=== PATIENT | female | born 1955 | race Caucasian/White ===

== ENCOUNTER 2017-11-27 12:03 | Inpatient (IN) | payer MEDICARE, BC ==
[2017-11-27 13:16] LABS: #Eosinphils 0.1 thou/uL (0.0-0.7); #Lymphocytes 0.5 thou/uL (1.20-3.40); #Monocytes 0.5 thou/uL (0.11-0.59); #Neutrophils 10.1 thou/uL (1.40-6.50); %Basophils 0.1 % (0.0-1.0); %Eosinophils 1.2 % (0.0-10.0); %Lymphocytes 4.8 % (21.0-51.0); %Monocytes 4.6 % (0.0-10.0); %Neutrophils 89.3 % (42.0-75.0); Hemoglobin 11.4 g/dL (12.0-16.0); Mean Corpuscular HGB CONC 32.8 g/dL (32.0-36.0); Mean Corpuscular Hemoglobin 29.2 pg (27.0-31.0); Mean Platelet Volume 8.2 fL (7.4-10.4); Platelet Count 345 thou/uL (130-400); RBC Distribution Width 15.7 % (11.5-14.5); Red Blood Cell (RBC) Count 3.91 mill/uL (4.20-5.40); White Blood Cell (WBC) Count 11.4 thou/uL (4.8-10.8)
[2017-11-27 13:49] LABS: ALT (SGPT) 36 U/L (8-55); AST (SGOT) 42 U/L (5-34); Albumin 4.1 g/dL (3.4-4.8); Alkaline Phosphatase 177 U/L (40-150); Anion Gap 20 mmol/L (10-20); BUN (Urea Nitrogen) 36 mg/dL (9.8-20.1); Bilirubin, Total 0.4 mg/dL (0.2-1.2); Calc. Creatinine Clearance 0 mL/min (70-130); Calcium 10.1 mg/dL (7.8-10.44); Carbon Dioxide 23 mmol/L (23-31); Chloride 97 mmol/L (98-107); Estimated GFR-MDRD 36; Globulin 3.2 g/dL (2.4-3.5); Glucose 455 mg/dL (80-115); Potassium 4.7 mmol/L (3.5-5.1); Protein, Total 7.3 g/dL (6.0-8.3); Sodium 135 mmol/L (136-145)
[2017-11-27 13:58] LABS: Bilirubin Negative (Negative); Blood, Urine Negative (Negative); Clarity CLEAR (Clear); Glucose, Urine (Dipstick) >=1000 mg/dL (Negative); Leukocyte Small (Negative); Nitrite Positive (Negative); Protein, Urine (Dipstick) Negative (Neg-Trace); Specific Gravity, Urine 1.021 (1.002-1.036); Urobilinogen 0.2 mg/dL (0.2-1.0); pH, Urine 5.5 (5.0-9.0)
[2017-11-27 14:01] LABS: Bacteria/HPF 4+ HPF (None Seen); Hyaline Casts/LPF 0-3 HYALINE CAST LPF (0-3 Hyaline); RBC/HPF 0-3 HPF (0-3); Squamous Epithelial None Seen HPF (0-3)
[2017-11-27 14:14] LABS: Magnesium 1.8 mg/dL (1.6-2.6)
[2017-11-27 14:19] LABS: CKMB 2.5 ng/mL (0-6.6); Troponin I Less than 0.010 ng/mL (< 0.028)
--- NOTE | 2017-11-27 15:10 | RAD ---
PORTABLE AP CHEST RADIOGRAPH: Date: 11-27-17 History: Shortness of breath, fever. Comparison: 11-30-16 FINDINGS: The most inferior aspect of each lateral costophrenic angle is excluded from view. Dorsal column stim ulator is again noted overlying the left chest with leads extending superiorly overlying the left nec k. Lungs are otherwise clear. Cardiac silhouette and pulmonary vasculature are within normal limits. There has been no interval change from prior exam. IMPRESSION: 1. Exclusion of the most inferior aspect of the lateral costophrenic angles, but no definite acute ca rdiopulmonary process is appreciated. POS: [facility]
[2017-11-27] MEDS ORDERED: Insulin Regular 300 UNITS/3 ML VIAL ONE (15:53)
--- NOTE | 2017-11-27 16:19 | PDOC.FPRHP ---
- History of Present Illness Chief Complaint: Weakness History of Present Illness: 62 yo WF PMH COPD and DM2. Presents with a 4 day history of generalized weakness , fever, SOB and fatigue. Fever up to 103F at home. Reports suprapubic pain. No recent travel or sick contacts. Denies cough or increased sputum productions. Denies need for intubation for COPD exacerbation in the past. UTD immunizations. ED Course: Labs, CXR, EKG, insulin, rocephin - Allergies/Adverse Reactions Allergies Allergy/AdvReac Type Severity Reaction Status Date / Time No Known Allergies Allergy Verified 10/23/15 22:33 - Home Medications Medication Instructions Recorded Confirmed Type Albuterol Sulfate [Ventolin HFA] 2 puff INH Q4HR PRN 09/02/14 10/23/15 History Amitriptyline HCl [Elavil] 50 mg PO DAILY 09/02/14 10/23/15 History Amlodipine [Norvasc] 10 mg PO DAILY 09/02/14 10/23/15 History Atorvastatin Calcium [Lipitor] 80 mg PO DAILY 09/02/14 10/23/15 History Cholecalciferol (Vitamin D3) 3,000 units PO DAILY 09/02/14 10/23/15 History [Vitamin D] Gabapentin [Neurontin] 1 capsule PO QID 09/02/14 10/23/15 History Hydroxychloroquine Sulfate 1 tablet PO BID 09/02/14 10/23/15 History [Plaquenil] Ipratropium-Albuterol [Combivent] 2 puff INH TID 09/02/14 10/23/15 History Leflunomide [Arava] 20 mg PO DAILY 09/02/14 10/23/15 History Losartan Potassium 100 mg PO DAILY 09/02/14 10/23/15 History Mirtazapine [Remeron] 15 mg PO DAILY 09/02/14 10/23/15 History Montelukast Sodium [Singulair] 10 mg PO DAILY 09/02/14 10/23/15 History Multivitamin [Multi-Vitamin Daily] 1 tablet PO DAILY 09/02/14 10/23/15 History Tiotropium [Spiriva Handihaler] 18 mcg INH DAILY 09/02/14 10/23/15 History Ubidecarenone [Co Q-10] 1 tablet PO DAILY 09/02/14 10/23/15 History Venlafaxine HCl [Effexor] 75 mg PO DAILY 09/02/14 10/23/15 History cloNIDine [Catapres] 0.3 mg PO TID 09/02/14 10/23/15 History metFORMIN HCl 1,000 mg PO BID-WM 09/02/14 10/23/15 History sulfaSALAzine 1,500 mg PO BID 09/02/14 10/23/15 History hydrALAZINE HCl 25 mg PO TID #0 09/04/14 10/23/15 Rx Budesonide-Formoterol [Symbicort 1 puff INH BID 10/23/15 10/23/15 History 160-4.5] Ferrous Sulfate [Iron] 325 mg PO TID 10/23/15 10/23/15 History Hydrochlorothiazide 25 mg PO DAILY 10/23/15 10/23/15 History Topiramate 100 mg PO BID 10/23/15 10/23/15 History hydrALAZINE HCl 25 mg PO TID 10/23/15 10/23/15 History sitaGLIPtin Phosphate [Januvia] 100 mg PO DAILY 10/23/15 10/23/15 History Levofloxacin [Levaquin] 500 mg PO 0600 #4 tab 10/26/15 Rx predniSONE 40 mg PO QAM- #4 tab 10/26/15 Rx - History PMHx: PSHx: FHx: Social: - Vital signs BP: [] HR: [] RR: [] Tmax: [] Pox: []% on [] Wt: [] FMR H&P: Results - Labs Result Diagrams: 11/27/17 12:55 11/27/17 12:55 Lab results: WBC 11.4 thou/uL (4.8-10.8) H 11/27/17 12:55 Hgb 11.4 g/dL (12.0-16.0) L 11/27/17 12:55 Hct 34.7 % (36.0-47.0) L 11/27/17 12:55 MCV 89.0 fl (81.0-99.0) 11/27/17 12:55 Plt Count 345 thou/uL (130-400) 11/27/17 12:55 Neutrophils % 89.3 % (42.0-75.0) H 11/27/17 12:55 Sodium 135 mmol/L (136-145) L 11/27/17 12:55 Potassium 4.7 mmol/L (3.5-5.1) 11/27/17 12:55 Chloride 97 mmol/L (98-107) L 11/27/17 12:55 Carbon Dioxide 23 mmol/L (23-31) 11/27/17 12:55 BUN 36 mg/dL (9.8-20.1) H 11/27/17 12:55 Creatinine 1.48 mg/dL (0.6-1.1) H 11/27/17 12:55 Glucose 455 mg/dL (80-115) H 11/27/17 12:55 Lactic Acid 2.2 mmol/L (0.5-2.2) 11/27/17 12:55 Calcium 10.1 mg/dL (7.8-10.44) 11/27/17 12:55 Total Bilirubin 0.4 mg/dL (0.2-1.2) 11/27/17 12:55 AST 42 U/L (5-34) H 11/27/17 12:55 ALT 36 U/L (8-55) 11/27/17 12:55 Alkaline Phosphatase 177 U/L (40-150) H 11/27/17 12:55 CK-MB (CK-2) 2.5 ng/mL (0-6.6) 11/27/17 12:55 Serum Total Protein 7.3 g/dL (6.0-8.3) 11/27/17 12:55 Albumin 4.1 g/dL (3.4-4.8) 11/27/17 12:55 Lipase 15 U/L (8-78) 11/27/17 12:55 Urine Ketones Negative mg/dL (Negative) 11/27/17 13:37 Urine Blood Negative (Negative) 11/27/17 13:37 Urine Nitrite Positive (Negative) H 11/27/17 13:37 Ur Leukocyte Esterase Small (Negative) H 11/27/17 13:37 Urine RBC 0-3 HPF (0-3) 11/27/17 13:37 Urine WBC 11-20 HPF (0-3) H 11/27/17 13:37 Ur Squamous Epith Cells None Seen HPF (0-3) 11/27/17 13:37 Urine Bacteria 4+ HPF (None Seen) H 11/27/17 13:37 FMR H&P: Upper Level - Plan Date/Time: 11/27/17 2237 I, [], have evaluated this patient and agree with findings/plan as outlined by sales and marketing intern resident. Pertinent changes/additions are listed here.
[2017-11-27 17:25] LABS: Lactic Acid 2.3 mmol/L (0.5-2.2)
--- NOTE | 2017-11-27 17:57 | HP-2 ---
CODE STATUS: FULL. Code status was discussed with patient who expressed understanding of full code procedures. PRIMARY CARE PHYSICIAN: Deanne Dye M.D. RESIDENT: Jose Carlos Montes M.D. ATTENDING PHYSICIAN: Deanne Dye M.D. HISTORIAN: Patient, family CHIEF COMPLAINT: Weakness. HISTORY OF PRESENT ILLNESS: Ms. Mcguire is a pleasant 62-year-old woman presented to the ER with a chief complaint of generalized weakness that began approximately 5 days prior to admission. She also endorsed shortness of breath, fever up to 103.0 Fahrenheit at home, and abdominal pain. She denied cough or increase in sputum production. She denies recent travel or sick exposures. Patient states she has a remote smoking history, but quit over 15 years ago. She states she has been compliant with her medications. States has been over a year since her last COPD exacerbation. States she has never required intubation and mechanical ventilation for her COPD exacerbation. EMERGENCY ROOM COURSE: While in the ER, the patient was seen and evaluated by Dr. Quinn Torres. The patient received routine laboratory work, chest x-ray , and EKG. Urine was found to be suspicious for urinary tract infection and she was given 1 gram of Rocephin. She also had a temperature of 100.6 while in the ER. Additionally, her blood glucose found to be elevated. She received Humulin 6 units IV push and a 500 mL normal saline bolus. PAST MEDICAL HISTORY: 1. COPD. 2. Diabetes mellitus type 2. 3. Hypertension. 4. Resting tremors. 5. Depression. 6. Anxiety. 7. Rheumatoid arthritis. 8. Dyslipidemia. PAST SURGICAL HISTORY: 1. Appendectomy in 1969. 2. Cholecystectomy in 1984. 3. Knuckle replacement in 2006. 4. Deep Brain Stimulator for essential tremor ALLERGIES: No known drug allergies. MEDICATIONS: 1. Lipitor 80 mg daily. 2. Remeron 15 mg daily. 3. Effexor 75 mg daily. 4. Amlodipine 10 mg daily. 5. Clonidine 0.3 mg three times daily. 6. Losartan 100 mg daily. 7. Hydrochlorothiazide 25 mg daily. 8. Hydralazine 50 mg daily. 9. Lasix 40 mg daily. 10. Potassium chloride 20 mEq daily. 11. Plaquenil 200 mg twice daily. 12. Vitamin D 3000 units daily. 13. Prednisone 1 mg daily. 14. CoQ10 100 mg daily. 15. Orencia 750 mg infusion every 4 weeks. 16. Spiriva 1 capsule inhaled daily. 17. Singulair 10 mg daily. 18. Symbicort 1 puff daily. 19. ProAir 2 puffs q.4 h. p.r.n. 20. Brovana 15 mcg per 2 mL twice daily as needed. 21. Metformin 1000 mg twice daily. The patient states she has recently taken off of this medication due to diarrhea. 22. Glyburide 2.5 mg daily. 23. Trulicity 0.75 mg subcu weekly. 24. Gabapentin 600 mg q.i.d. 25. Baclofen 10 mg twice daily. 26. Tramadol 50 mg as needed for pain. 27. Amitriptyline 50 mg daily. 28. Multivitamin. 29. Ferrous sulfate 325 mg t.i.d. FAMILY HISTORY: She has positive lung cancer in father. SOCIAL HISTORY: The patient reports that she smoked 1 pack of cigarettes a day for approximately 35 years, but quit almost 14 years ago. Denies alcohol. Currently, lives with her at home. REVIEW OF SYSTEMS: General: Endorses fevers and chills. ENT: Denies ear pain and sore throat. Neck: Denies masses or lesions. Lungs: Reports shortness of breath. Denies cough or congestion. Cardiovascular: Denies chest pain or palpitations. Gastrointestinal: Reports lower abdominal pain. Denies nausea, vomiting. Musculoskeletal: Reports chronic back pain. Denies numbness or weakness. Neurologic: Denies headaches or focal weakness. Reports generalized weakness. Skin: Denies rashes or lesions. PHYSICAL EXAMINATION: VITAL SIGNS: Blood pressure 153/56, pulse 113, respiratory rate 25, temperature 98.5, maximum temperature in the ER was 100.6 orally. Current weight 93 kilograms. Pulse ox 95% on room air. GENERAL: Mild respiratory distress. He is alert and oriented x4. ENT: External ears and nose grossly normal. Moist mucous membranes. NECK: Supple, without lymphadenopathy or thyromegaly. HEART: Tachycardic rate, regular rhythm, no murmurs or gallops appreciated. PULMONARY: Clear to auscultation bilaterally, but markedly decreased breath sounds. ABDOMEN: Suprapubic tenderness to palpation. No guarding or rigidity noticed. Bowel sounds present. EXTREMITIES: No pitting edema noticed or asymmetry noted in lower extremities. MUSCULOSKELETAL: Moves all four limbs equally. NEUROLOGIC: No gross focal deficits. Sensation is grossly normal. SKIN: No obvious rashes or lesions noted. PSYCHIATRIC: Mood and affect are appropriate. LABORATORY DATA: CBC: White blood cell count 11.4, hemoglobin 11.4, hematocrit 34.7, MCV 89, neutrophils 89.3%. CMP: Sodium 135, potassium 4.7, chloride 97, bicarbonate 23, BUN 36, creatinine 1.48, glucose 455. Estimated GFR 36, calcium 10.1, bilirubin 0.4, total protein 10.3, albumin 4.1, globulin 3.2, alkaline phosphatase 177, AST 42 , ALT 36, magnesium 1.8. Other labs, lipase 15. Troponin less than 0.010, CK- MB 2.5. Urinalysis: Specific gravity 1.02, pH 5.5, leukocyte esterase is small, nitrite positive, protein negative, glucose greater than 1000, ketones negative , bilirubin negative, blood negative, red blood cells 0-3 per high power field, white blood cell 10-20 per high power field, 4+ bacteria, squamous epithelial none. Chest x-ray, no acute processes. EKG, sinus tachycardia with a rate of 115 and occasional premature atrial complexes, NE interval 134, QTc interval 439. ASSESSMENT AND PLAN: Ms. Mcguire is a 62-year-old white female with past medical history of chronic obstructive pulmonary disease who presents with a 5- day history of generalized weakness, fever, suprapubic abdominal pain, and shortness of breath. Labs are concerning for urinary tract infection. Physical exam more consistent with chronic obstructive pulmonary disease exacerbation. Plan: 1. Sepsis secondary to urinary tract infection. The patient received 1 gram of Rocephin in the ER. We will switch to Levaquin as there is concern for possible chronic obstructive pulmonary disease exacerbation and would have equally efficacious coverage. Urine culture pending at this time. Lactic acid within normal limits. Blood cultures ordered. Received 1 L bolus in ER and will start on maintenance fluids at 100 mL/hr. 2. Acute Kidney Injury: IV fluids, Repeat BMP in the morning. 3. Acute COPD exacerbation. I will start on prednisone 40 mg daily and continue this for 5 days. Levaquin for antibiotics. We will schedule q.4 hour DuoNebs as q.2 h. p.r.n. 4. Hypertension. Continue home medications. 5. Hyperglycemia, sliding scale insulin provided. No concern for diabetic ketoacidosis or HHNK at this time. 6. Diabetes mellitus type 2. Continue home medications. Sliding scale insulin provided with a.c. and at bedtime Accu-Cheks. Hypoglycemics ordered. 7. Back pain, home medications. 8. Diet: Heart healthy, consistent carbohydrate. 9. Activity: As tolerated. 10. Prophylaxis: Lovenox for DVT prophylaxis. 11. CODE STATUS: FULL. DISPOSITION AND ESTIMATED LENGTH OF STAY: She is admitted under inpatient status placed on the floor. Length of stay, likely greater than 2 midnights. History, physical exam and management of this patient were discussed with Dr. Dye who was in agreement unless otherwise stated in her note. DRAKE
[2017-11-27] MEDS ORDERED: HumaLOG 300 UNITS/3 ML VIAL SC PRN (18:23)
[2017-11-27] MEDS ORDERED: Bisacodyl 10 MG SUPP PR PRN (18:23)
[2017-11-27] MEDS ORDERED: Dextrose 50% Abboject 50 ML SYRINGE SLOW IVP PRN (18:23)
[2017-11-27] MEDS ORDERED: Acetaminophen 650 MG Suppository PR PRN (18:23)
[2017-11-27] MEDS ORDERED: Ondansetron ODT 4 MG TAB PO PRN (18:23)
[2017-11-27] MEDS ORDERED: Dextrose 5% in Water 1,000 ML IV PRN (18:23)
[2017-11-27] MEDS ORDERED: Bisacodyl 5 MG TAB PO PRN (18:23)
[2017-11-27] MEDS ORDERED: Ondansetron HCl/PF 4 MG/2 ML Vial IVP PRN (18:23)
[2017-11-27] MEDS ORDERED: Enoxaparin Sodium 30 MG/0.3 ML SYRINGE SC SCH (18:30)
[2017-11-27] MEDS ORDERED: predniSONE 20 MG TAB PO SCH (18:30)
[2017-11-27] MEDS ORDERED: traMADol HCl 50 MG TAB PO PRN (18:50)
[2017-11-27] MEDS: Acetaminophen 325 MG TAB PO PRN (19:23)
[2017-11-27] MEDS: Sodium Chloride 0.9% 1,000 ML IV SCH (19:23)
[2017-11-27] MEDS ORDERED: Montelukast Sodium 10 mg Tablet PO SCH ×2 (21:00)
[2017-11-27] MEDS: hydrALAZINE 25 MG TAB PO SCH (21:57)
[2017-11-27] MEDS: Hydroxychloroquine Sulfate 200 MG TAB PO SCH (21:59)
[2017-11-27] MEDS: cloNIDine 0.3 MG TAB PO SCH ×2 (21:59)
[2017-11-27] MEDS: Gabapentin 300 MG CAP PO SCH (21:59)
[2017-11-27 22:47] VITALS: BMI 38.0
[2017-11-28] MEDS ORDERED: Labetalol HCl 100 MG/20 ML VIAL SLOW IVP SCH (02:15)
[2017-11-28] MEDS: Acetaminophen 325 MG TAB PO PRN (03:47)
[2017-11-28] MEDS: HumaLOG 300 UNITS/3 ML VIAL SC PRN ×3 (03:48→16:57)
[2017-11-28] MEDS: Sodium Chloride 0.9% 1,000 ML IV SCH ×2 (04:38→12:40)
[2017-11-28 05:00] LABS: #Lymphocytes 0.7 thou/uL (1.20-3.40); #Monocytes 0.2 thou/uL (0.11-0.59); #Neutrophils 9.9 thou/uL (1.40-6.50); %Eosinophils 0.3 % (0.0-10.0); %Lymphocytes 6.2 % (21.0-51.0); %Monocytes 1.7 % (0.0-10.0); %Neutrophils 91.8 % (42.0-75.0); Hemoglobin 9.8 g/dL (12.0-16.0); Mean Corpuscular HGB CONC 33.8 g/dL (32.0-36.0); Mean Corpuscular Hemoglobin 29.2 pg (27.0-31.0); Mean Corpuscular Volume 86.6 fl (81.0-99.0); Mean Platelet Volume 7.8 fL (7.4-10.4); Platelet Count 309 thou/uL (130-400); RBC Distribution Width 15.6 % (11.5-14.5); Red Blood Cell (RBC) Count 3.36 mill/uL (4.20-5.40); White Blood Cell (WBC) Count 10.8 thou/uL (4.8-10.8)
[2017-11-28 05:13] LABS: Anion Gap 15 mmol/L (10-20); BUN (Urea Nitrogen) 30 mg/dL (9.8-20.1); Calc. Creatinine Clearance 72 mL/min (70-130); Calcium 9.7 mg/dL (7.8-10.44); Carbon Dioxide 25 mmol/L (23-31); Chloride 100 mmol/L (98-107); Estimated GFR-MDRD 46; Glucose 357 mg/dL (80-115); Sodium 136 mmol/L (136-145)
[2017-11-28] MEDS ORDERED: Mometasone/Formoterol 120 PUFF INHALER INH SCH (06:30)
[2017-11-28] MEDS ORDERED: Furosemide 80 MG TAB PO SCH (07:30)
--- NOTE | 2017-11-28 07:35 | PDOC.EVN ---
Event Note - Event Note Event Note: Attending H&P I personally evaluated the patient and discussed the management with Dr. Gipson on 11/27 I agree with the History, Examination, Assessment and Plan documented above with any addition or exceptions noted below- Briefly this is a 62 year old female with h/o COPD, HTN, RA, Type 2 DM presents c/o progressive weakness over the last 2-3 days. Fever to 103. Denies any cough, dysuria, URI symptoms. Does note stronger odor to her urine. Decreased appetite. PMH/PSH/Meds/ SH/All reviewed and agree with resident's documentation. T99.2 P102 BP143/78 RR20 96% RA Exam repeated by me and agree with resident's findings. Pertinent labs: hgb=11.4 WBC=11.4 Hct=34.7 Diff 89N/5L; Cj=155 K=4.7 Cl=97 CO2=23 BUN=36 Cr= 1.48 Ejjt=787 Lactic acid=2.2 AST=42 ALT=36 U/A- 4+gluc, (+) nitrite, small LE, 11-20 WBC, 4+ bacteria A/P: 1) Sepsis secondary to UTI- continue IVF; continue abx; blood and urine cultures pending, 2) HTN- continue home meds, 3) DM with hyperglycemia- patient has been off her metformin due to diarrhea; will need to adjust her medications to better control her glucose. 4) COPD- possible mild exacerbation; continue nebs.
[2017-11-28] MEDS ORDERED: Potassium Chloride 20 MEQ TAB PO SCH ×2 (08:00)
[2017-11-28] MEDS ORDERED: predniSONE 20 MG TAB PO SCH (08:00)
--- NOTE | 2017-11-28 08:34 | PDOC.FM ---
- Subjective Subjective: CC: Feeling better HPI: States she feels much stronger today. Breathing better. would like to go home if possible. No family at bedside. - Objective MAR Reviewed: Yes Vital Signs & Weight: Vital Signs (12 hours) Temp Pulse Resp BP BP Pulse Ox 11/28/17 06:24 95 18 97 11/28/17 04:04 97.6 F 82 20 134/69 97 11/28/17 02:42 104 H 182/79 H 11/28/17 02:33 96 18 97 11/28/17 01:50 99.5 F 104 H 20 182/78 H 96 11/27/17 22:12 99 18 98 11/27/17 21:59 143/78 H 11/27/17 21:57 102 H 143/78 H Weight Weight 94.347 kg I&O: 11/27/17 11/28/17 11/29/17 06:59 06:59 06:59 Intake Total 1769 Output Total 950 Balance 819 Result Diagrams: 11/28/17 04:38 11/28/17 04:38 <Jose Carlos Montes W - Last Filed: 11/28/17 10:51> - Objective Vital Signs & Weight: Vital Signs (12 hours) Temp Pulse Resp BP BP BP Pulse Ox 11/28/17 08:43 144/73 H 11/28/17 08:41 93 144/73 H 11/28/17 08:37 93 144/73 H 11/28/17 08:00 98.1 F 93 18 144/73 H 93 L 11/28/17 06:24 95 18 97 11/28/17 04:04 97.6 F 82 20 134/69 97 11/28/17 02:42 104 H 182/79 H 11/28/17 02:33 96 18 97 11/28/17 01:50 99.5 F 104 H 20 182/78 H 96 Weight Weight 94.347 kg I&O: 11/27/17 11/28/17 11/29/17 06:59 06:59 06:59 Intake Total 1769 240 Output Total 950 Balance 819 240 Result Diagrams: 11/28/17 04:38 11/28/17 04:38 <Giovani Castanon R - Last Filed: 11/28/17 11:09> Phys Exam - Physical Examination Constitutional: NAD HEENT: moist MMs, sclera anicteric Respiratory: no wheezing, clear to auscultation bilateral Improved air movement since yesterday Cardiovascular: RRR, no significant murmur Gastrointestinal: soft TTP LLQ and suprapubic region Musculoskeletal: no edema Neurological: non-focal, moves all 4 limbs Psychiatric: normal affect, A&O x 3 <Jose Carlos Montes W - Last Filed: 11/28/17 10:51> Dx/Plan (1) Sepsis Code(s): A41.9 - SEPSIS, UNSPECIFIED ORGANISM Status: Resolved QualifierTitle: Sepsis type: sepsis due to unspecified organism Qualified Code(s): A41.9 - Sepsis, unspecified organism Plan: Vitals improved. White count resolved. - D/C iv fluids. (2) ZOE (acute kidney injury) Code(s): N17.9 - ACUTE KIDNEY FAILURE, UNSPECIFIED Status: Acute Plan: Creatinine trending down. baseline 0.82. - will monitor overnight and repeat BMP in the morning. (3) UTI (urinary tract infection) Status: Acute QualifierTitle: Urinary tract infection type: acute cystitis Hematuria presence: without hematuria Qualified Code(s): N30.00 - Acute cystitis without hematuria Plan: Levaquin day 2 - f/u culture results. (4) COPD exacerbation Code(s): J44.1 - CHRONIC OBSTRUCTIVE PULMONARY DISEASE W (ACUTE) EXACERBATION Status: Acute Plan: Prednisone day 2, levaquin day 2 - continue neb treatments. Will decrease frequency to Q6hr. (5) Diabetes mellitus Code(s): E11.9 - TYPE 2 DIABETES MELLITUS WITHOUT COMPLICATIONS Status: Chronic QualifierTitle: Diabetes mellitus type: type 2 Diabetes mellitus complication status: without complication Plan: Patient states blood glucose has been very elevated at home ranging in 300- 400s. - continue home meds - will likely worsen 2/2 steroids - SSI. (6) Hypertension Code(s): I10 - ESSENTIAL (PRIMARY) HYPERTENSION Status: Chronic QualifierTitle: Hypertension type: essential hypertension Qualified Code( s): I10 - Essential (primary) hypertension Plan: 1 elevated pressure overnight - continue home meds - PRNs available <Jose Carlos Montes W - Last Filed: 11/28/17 10:51> Attending Addendum - Attending Addendum Date/Time: 11/28/17 1106 I personally evaluated the patient and discussed the management with Dr. Montes. I agree with the History, Examination, Assessment and Plan documented above with any addition or exceptions noted below. Patient no longer meeting sepsis criteria and feels well. She desires to go home today. Continue on antibiotics for UTI and await cultures. She had mild ZOE above her outpatient baseline of 0.8, will give mild IVF. Encourage ambulation and if feeling well this afternoon and renal function improved, she can likely be discharged home with outpatient follow up on culture results and completing antibiotic course. She is on steroids for mild COPD exacerbation, but with highly uncontrolled DM, she will need to be counselled about the risks of steroids and dangerously elevated blood sugars. Resuming home diabetic meds this morning. <Giovani Castanon R - Last Filed: 11/28/17 11:09>
[2017-11-28] MEDS: Gabapentin 300 MG CAP PO SCH ×3 (08:36→16:55)
[2017-11-28] MEDS: hydrALAZINE 25 MG TAB PO SCH ×2 (08:37→14:59)
[2017-11-28] MEDS: Hydroxychloroquine Sulfate 200 MG TAB PO SCH (08:38)
[2017-11-28] MEDS: cloNIDine 0.3 MG TAB PO SCH ×4 (08:43→14:56)
[2017-11-28] MEDS ORDERED: Enoxaparin Sodium 30 MG/0.3 ML SYRINGE SC SCH (09:00)
[2017-11-28] MEDS ORDERED: Losartan 25 MG TAB PO SCH ×2 (09:00)
[2017-11-28] MEDS ORDERED: Amitriptyline HCl 100 MG TAB PO SCH ×2 (09:00→21:00)
[2017-11-28] MEDS ORDERED: Ubidecarenone 50 MG CAP PO SCH (09:00)
[2017-11-28] MEDS ORDERED: Atorvastatin Calcium 40 MG TAB PO SCH ×2 (09:00→21:00)
[2017-11-28] MEDS ORDERED: Multivit, Therapeutic 1 TAB PO SCH (09:00)
[2017-11-28] MEDS ORDERED: Hydrochlorothiazide 25 MG TAB PO SCH (09:00)
[2017-11-28] MEDS ORDERED: Spiriva 18 MCG CAP (Box of 5 Caps) INH SCH (09:00)
[2017-11-28] MEDS ORDERED: Ferrous Sulfate 325 MG TAB PO SCH (09:00)
[2017-11-28] MEDS ORDERED: Mirtazapine 15 MG TAB PO SCH ×2 (09:00→21:00)
[2017-11-28] MEDS ORDERED: Amlodipine 10 MG TAB PO SCH (09:00)
[2017-11-28] MEDS ORDERED: Sodium Chloride 0.9% 500 ML IV SCH (11:00)
[2017-11-28] MEDS ORDERED: glyBURIDE 2.5 MG TAB PO SCH ×2 (12:30→21:00)
[2017-11-28 15:28] LABS: Anion Gap 12 mmol/L (10-20); BUN (Urea Nitrogen) 24 mg/dL (9.8-20.1); Calc. Creatinine Clearance 78 mL/min (70-130); Calcium 9.2 mg/dL (7.8-10.44); Carbon Dioxide 25 mmol/L (23-31); Chloride 102 mmol/L (98-107); Estimated GFR-MDRD 51; Glucose 362 mg/dL (80-115); Potassium 3.9 mmol/L (3.5-5.1); Sodium 135 mmol/L (136-145)
[2017-11-28 17:15] VITALS: BP 146/82; TEMP 98.4
--- NOTE | 2017-11-28 23:51 | DIS-2 ---
DATE OF ADMISSION: 11/27/2017 DATE OF DISCHARGE: 11/28/2017 RESIDENT: Jose Carlos Montes M.D. ADMITTING ATTENDING: Deanne Dye M.D. DISCHARGE ATTENDING: Giovani Castanon MD CONSULTATIONS: None. IMAGING: Chest x-ray, no acute processes. PRETINENT LABORATORY DATA: White blood cell count 11.4 trended to 10.8. Lactic acid 2.2 trended up to 2.3 and down to 0.9. Creatinine 1.48 trended down to 1.08, baseline creatinine per clinic records as of last year is 0.82. Urinalysis concerning for urinary tract infection with white cells of 11-2 0 per high power field, 4+ bacteria, small leukocyte esterase, positive nitrite and a glucose over 10 00. Beta-hydroxybutyrate 0.39. MICROBIOLOGY: Urine culture at this time shows presumptive E. coli with 75,000-100,000 CFUs per mL. Blood cultures are negative at this time. Influenza screen negative. PRIMARY DIAGNOSES: 1. Resolved sepsis secondary to urinary tract infection. 2. Mild chronic obstructive pulmonary disease exacerbation. 3. Acute kidney injury. SECONDARY DIAGNOSES: 1. Diabetes mellitus type 2, uncontrolled. 2. Hypertension. 3. Hyperlipidemia. 4. Anxiety and depression. 5. Chronic back pain. 6. Hyperlipidemia. DISCHARGE MEDICATIONS: 1. Prednisone 20 mg daily for 2 days. 2. Levaquin 500 mg orally for 5 days. 3. Potassium chloride 20 mEq daily. 4. Lasix 40 mg b.i.d. 5. DuoNeb 3 mL q.2 hours p.r.n. 6. Multivitamin 1 daily. 7. Remeron 15 mg daily. 8. Amitriptyline 50 mg daily. 9. Amlodipine 10 mg daily. 10. Venlafaxine 75 mg daily. 11. Spiriva 18 mcg daily. 12. Singulair 10 mg daily. 13. Losartan 100 mg daily. 14. Vitamin D3 3000 units daily. 15. Lipitor 80 mg daily. 16. Clonidine 0.3 mg t.i.d. 17. CoQ10 one tab daily. 18. Revera 20 mg daily. 19. Plaquenil one tab twice daily. 20. Gabapentin one tab 4 times daily. 21. Iron sulfate 325 mg t.i.d. 22. Hydrochlorothiazide 25 mg daily. 23. Symbicort 160/4.5 mg 1 puff b.i.d. 24. Hydralazine 25 mg t.i.d. 25. Trulicity 0.75 mg subcutaneously every 7 days. 26. Orencia 750 mg IV every 4 weeks. 27. Brovana 15 mcg twice daily. 28. ProAir 2 puffs q.4 hours p.r.n. 29. Prednisone 1 mg daily. 30. Tramadol 100 mg q.4 hours p.r.n. 31. Glyburide 2.5 mg twice daily. 32. Baclofen 10 mg twice daily DISCONTINUED MEDICATIONS: None. HISTORY OF PRESENT ILLNESS AND HOSPITAL COURSE: Ms. Mcguire is a pleasant 62-year-old fema le who presented to the ER with a 5-day history of generalized weakness, shortness of breath, suprapu bic abdominal pain. She was found to have urinary tract infection and noted to be in a mild COPD exa cerbation. Urinary tract infection was initially treated with a gram of Rocephin, which was then swi tched to Levaquin to cover the presumed COPD exacerbation. Her COPD responded well to prednisone and DuoNeb therapy. Her blood sugar remained markedly elevated throughout her entire hospitalization. The patient stated she and her primary care provider have been working on finding a better diabetes r egimen for her. She was advised to discuss with her primary care provider starting insulin due to th e uncontrolled nature of her diabetes. She is also noted to have an ZOE on the time of admission. This quickly resolved with IV fluids. Sh e was almost at baseline at time of discharge. Vital signs at time of discharge were within normal l imits. DISPOSITION: Stable. DISCHARGE INSTRUCTIONS: 1. Location: Home. 2. Diet: Consistent carbohydrate, heart healthy. 3. Activity: As tolerated. 4. Followup: The patient states she has an appointment scheduled with her primary care provider on 12/03/2017. She was advised to discuss her diabetes management at that time. Less than 30 minutes spent on discharge.
[2017-11-29] MEDS ORDERED: Leflunomide 10 mg Tablet PO SCH (09:00)
== END 2017-11-28 17:24 | disposition home or self-care (01) | DRG 872 ==
LOC: ERS 12:03 → T4-A 16:12
PROVIDERS: ADMIT Family Medicine; ATTEND Family Medicine
DX: A41.9 Sepsis, unspecified organism (principal); N17.9 Acute kidney failure, unspecified; J44.1 Chronic obstructive pulmonary disease with (acute) exacerbation; E11.65 Type 2 diabetes mellitus with hyperglycemia; N39.0 Urinary tract infection, site not specified; E78.5 Hyperlipidemia, unspecified; I10 Essential (primary) hypertension; F41.9 Anxiety disorder, unspecified; F32.9 Major depressive disorder, single episode, unspecified; G89.29 Other chronic pain; Z79.52 Long term (current) use of systemic steroids; M06.9 Rheumatoid arthritis, unspecified; Z90.49 Acquired absence of other specified parts of digestive tract; Z79.4 Long term (current) use of insulin
CPT/HCPCS: 36415; 36416; 71045; 80048; 80053; 81003; 81015; 82010; 82553; 83605; 83690; 83735; 84484; 85025; 87040; 87077; 87086; 87186; 87804; 93005; 94640; 96361; 96374; 96375; J0696; J1650; J1815; J7506; J7620; Q0162

== ENCOUNTER 2017-12-19 10:55 | Outpatient (CLI) | payer MEDICARE, BC | END 2017-12-19 10:56 | disposition home or self-care (01) | LOC: BICMAMMO 10:55 | PROVIDERS: ATTEND Family Medicine | DX: Z12.31 Encounter for screening mammogram for malignant neoplasm of breast (principal) | CPT/HCPCS: 77063; 77067 ==

== ENCOUNTER 2018-07-23 09:50 | Outpatient (CLI) | payer MEDICARE, BC ==
--- NOTE | 2018-07-23 11:41 | RAD ---
TWO VIEWS CHEST: Comparison: 12-14-16 History: Dyspnea. FINDINGS: Two views of the chest shows a normal sized cardiomediastinal silhouette. A generator projects over t he left chest wall. There are areas of air filled opacities projecting over the left mid thorax and o marianna the right lower lobe consistent with multifocal pneumonia. There may be a small left pleural effu donald. IMPRESSION: 1. Multifocal pneumonia. 2. Left pleural effusion. POS: [facility]
[2018-07-23 12:52] VITALS: BP 154/86; TEMP 98.3
[2018-07-23 13:55] VITALS: BMI 39.8
== END 2018-07-23 09:51 | disposition home or self-care (01) ==
LOC: RAD 09:50
PROVIDERS: ATTEND Internal Medicine Critical Care Medicine
DX: R06.00 Dyspnea, unspecified (principal); J18.9 Pneumonia, unspecified organism; J90 Pleural effusion, not elsewhere classified
CPT/HCPCS: 71046

== ENCOUNTER 2018-07-23 11:46 | Inpatient (IN) | payer MEDICARE, BC ==
[2018-07-23 13:39] LABS: Anion Gap 17 mmol/L (10-20); BUN (Urea Nitrogen) 24 mg/dL (9.8-20.1); Calc. Creatinine Clearance 0 mL/min (70-130); Carbon Dioxide 25 mmol/L (23-31); Chloride 96 mmol/L (98-107); Estimated GFR-MDRD 48; Glucose 187 mg/dL (80-115); Potassium 3.9 mmol/L (3.5-5.1); Sodium 134 mmol/L (136-145)
[2018-07-23 13:48] LABS: Anisocytosis SLIGHT = 6-15 cells (100X) (0-5/hpf); Band 9 % (5-11); Hemoglobin 10.3 g/dL (12.0-16.0); Lymphocytes 8 % (21-51); MDiff Complete? YES; Mean Corpuscular HGB CONC 33.1 g/dL (32.0-36.0); Mean Corpuscular Hemoglobin 28.3 pg (27.0-31.0); Mean Corpuscular Volume 85.5 fL (78.0-98.0); Mean Platelet Volume 8.1 fL (7.4-10.4); Monocytes 3 % (0-10); Neutrophil 79 % (42-75); PLT Morphology Comment Appears Adequate; Platelet Count 295 thou/uL (130-400); RBC Distribution Width 14.6 % (11.5-14.5); Reactive Lymphocytes 1 % (0-10); Red Blood Cell (RBC) Count 3.64 mill/uL (4.20-5.40); White Blood Cell (WBC) Count 17.9 thou/uL (4.8-10.8)
[2018-07-23 14:29] VITALS: BMI 39.8
[2018-07-23] MEDS: cefTRIAXone\\ROCEPHIN 2 GM in Sodium Chloride 0.9% 100 ML IVPB SCH (15:04)
[2018-07-23] MEDS: cloNIDine 0.3 MG TAB PO SCH ×2 (15:04→21:17)
[2018-07-23] MEDS: Sodium Chloride 0.45% 1,000 ML IV SCH (15:04)
[2018-07-23] MEDS: Gabapentin 300 MG CAP PO SCH ×3 (15:05→21:18)
[2018-07-23] MEDS: hydrALAZINE 25 MG TAB PO SCH ×2 (15:05→21:17)
[2018-07-23] MEDS: Benzonatate 100 MG CAP PO SCH ×2 (15:05→21:17)
[2018-07-23] MEDS: Phenergan/Codeine 10-6.25mg/5ml UDCUP PO PRN ×2 (15:37→21:33)
[2018-07-23] MEDS: guaiFENesin ER 600 MG TAB PO SCH (21:16)
[2018-07-23] MEDS: Mirtazapine 15 MG TAB PO SCH (21:16)
[2018-07-23] MEDS: Hydroxychloroquine Sulfate 200 MG TAB PO SCH (21:16)
[2018-07-23] MEDS: Atorvastatin Calcium 40 MG TAB PO SCH (21:17)
[2018-07-23] MEDS: Amitriptyline HCl 25 MG TAB PO SCH (21:17)
[2018-07-23] MEDS: Insulin Glargine 40 UNITS in Pre-Filled Syringe 1 EACH SC SCH (21:18)
[2018-07-23] MEDS: Baclofen 10 MG TAB PO SCH (21:18)
--- NOTE | 2018-07-24 01:39 | HP ---
DATE: 07/23/2018 HISTORY OF PRESENT ILLNESS: Ms. Mcguire is a very pleasant 62-year-old female, who started feeling poorly in the middle of last week. She came to see me today for a cough, chest congestion, shortness of breath. I recommended admission. She actually was seen by me in June with a mild exacerbation of COPD. She responded well to a low dose of prednisone for 11 days. She is a very compliant and cooperative patient, is a franky to take care of. She does not ever complain in spite of multiple obstacles that clearly said this is a worse respiratory illness she has ever had. PAST MEDICAL HISTORY: 1. Remarkable for deep brain stimulator placed in 2015 for benign essential tremor. 2. She has a history of her nebulizer medicine aggravating her tremor before a brain stimulator. We had her lately on budesonide and Brovana twice a day and she has done well with that. 3. She has underlying obstructive lung disease. 4. History of sleep apnea, compliant with therapy. 5. History of lipid disorder. 6. History of hypertension. 7. Rheumatoid arthritis. 8. Diabetes. 9. History of radiculopathy. 10. History of an appendectomy in 1977. 11. Cholecystectomy in 1984. 12. Knuckle replacement in 2006 and pacemaker for her deep brain stimulator in 2016. The deep brain stimulator surgery is in 2015. MEDICATIONS: Prior to admission, she is on: 1. Lipitor 80 mg a day. 2. Remeron 15 mg a day. 3. Effexor 75 mg every morning. 4. Norvasc 10 mg in the morning. 5. Catapres 0.3 t.i.d. 6. Losartan 100 mg a day. 7. Hydrochlorothiazide 25 a day. 8. Lasix 40 twice a day. 9. Hydralazine 50 three times a day. 10. Potassium 20 mEq a day. 11. Plaquenil 200 mg tablets, two tablets a day. 12. Prednisone 1 mg a day. 13. Orencia 750 mg infusion every four weeks. 14. Spiriva 1 capsule a day. 15. Singulair 10 mg a day. 16. Symbicort two puffs twice a day, but she has only been taking one puff a day. 17. Brovana and budesonide twice a day. 18. Trulicity 1.5 mg a week. 19. Lantus 40 units twice a day. 20. Januvia 100 mg a day. 21. Neurontin 600 mg tablets four times a day. 22. Baclofen 10 mg twice a day. 23. Tramadol 50 mg p.r.n. 24. Elavil 50 mg at bedtime. 25. Multivitamins. 26. Iron. FAMILY HISTORY: Negative for lung disease in early age. SOCIAL HISTORY: Non contributory. REVIEW OF SYSTEMS: Ten-point review of system completed, otherwise negative. PHYSICAL EXAMINATION: GENERAL: She is a very compliant and cooperative patient, is a franky to take care of. VITAL SIGNS: Pulse 92, respiratory rate 18 to 20. Oximetry was surprisingly 92 to 94 on room air in the office. She was using her accessory muscles. HEENT: Her pupils are equal. Her tremor was really about its baseline. NECK: Supple. LUNGS: Remarkable for coarse wheezes diffusely. HEART: Rate and rhythm. ABDOMEN: Soft. EXTREMITIES: Without clubbing, cyanosis or edema. LABORATORY DATA: White count 17.9, hemoglobin 10.3, platelets 295. Sodium 134, potassium 3.9, chloride 96, bicarb 25, BUN 24, creatinine 1.15, glucose 187. Chest radiograph shows bilateral patchy infiltrates. IMPRESSION: 1. Pneumonia, community acquired. 2. Underlying nonobstructive pulmonary disease with component of reactive airway. 3. Tremor, status post deep brain stimulator. Her swallowing has actually been good lately. 4. Sleep apnea. She will need to sleep with her CPAP when she is in the hospital. 5. Lipid disorder. 6. History of depression. 7. History of hypertension. 8. Rheumatoid arthritis. 9. Diabetes. 10. History of lumbar radiculopathy. 11. History of cholecystectomy. We anticipate she will be in the hospital 2-3 days. Hopefully, we will see a rapid turnaround with her respiratory issues. This is a 70 minute History and Physical with greater than 50% of time spent on unit coordinating care. Job ID: [id number] [facility]TD[facility]
[2018-07-24] MEDS: Sodium Chloride 0.45% 1,000 ML IV SCH ×2 (02:58→20:31)
[2018-07-24] MEDS: Benzonatate 100 MG CAP PO SCH ×3 (09:47→21:05)
[2018-07-24] MEDS: hydrALAZINE 25 MG TAB PO SCH ×3 (09:47→21:06)
[2018-07-24] MEDS: guaiFENesin ER 600 MG TAB PO SCH ×2 (09:47→21:06)
[2018-07-24] MEDS: Losartan 25 MG TAB PO SCH (09:47)
[2018-07-24] MEDS: Amlodipine 10 MG TAB PO SCH (09:47)
[2018-07-24] MEDS: cloNIDine 0.3 MG TAB PO SCH ×3 (09:48→21:12)
[2018-07-24] MEDS: Baclofen 10 MG TAB PO SCH ×2 (09:48→21:06)
[2018-07-24] MEDS: Insulin Glargine 40 UNITS in Pre-Filled Syringe 1 EACH SC SCH ×2 (09:48→21:07)
[2018-07-24] MEDS: Gabapentin 300 MG CAP PO SCH ×4 (09:48→21:05)
[2018-07-24] MEDS: Hydroxychloroquine Sulfate 200 MG TAB PO SCH ×2 (09:48→21:07)
[2018-07-24] MEDS: Alogliptin 25 MG TAB PO SCH (09:48)
[2018-07-24] MEDS: Enoxaparin Sodium 40 MG/0.4 ML SYRINGE SC SCH (09:48)
[2018-07-24] MEDS ORDERED: [UNRECOGNIZED DRUG - REMARK] FS SCH (13:30)
[2018-07-24] MEDS: cefTRIAXone\\ROCEPHIN 2 GM in Sodium Chloride 0.9% 100 ML IVPB SCH (13:52)
[2018-07-24] MEDS: HumaLOG 300 UNITS/3 ML VIAL SC PRN ×3 (14:55→21:07)
--- NOTE | 2018-07-24 17:51 | PRG ---
DATE OF SERVICE: 07/24/2018 SUBJECTIVE: Mercedes Mcguire did well with BiPAP last night. This was added in because her forgot her CPAP. She slept on all night, said it was great for her sleep apnea and also helped her to get some muscle rest and allowed her to go to sleep. Her tremor is aggravated by the ipratropium and albuterol every 4 hours today. She will go to [facility] twice a day and Atrovent every 4 hours. We will continue the antibiotics and steroids. She clinically looks much more comfortable when she looked in the office when she was admitted yesterday. OBJECTIVE: VITAL SIGNS: Blood pressure 146/68, heart rate is 90, and respiratory rate is 20. She is afebrile. LUNGS: Remarkable for diffuse wheezes, but these are improved. Her crackles are about the same bilaterally. HEART: Regular rhythm. ABDOMEN: Soft and nontender. IMPRESSION: 1. Community-acquired pneumonia. 2. Movement disorder, status post deep brain stimulator. 3. Tremor, aggravated by the albuterol. 4. Chronic obstructive pulmonary disease. 5. Borderline hyponatremia. 6. Diabetes. Aggressive sliding scale was added today. PLAN: We will probably hopefully decrease her steroids a little bit tomorrow. She appears stable. With regard to the antimicrobial, we will continue IV for 1 more day. There is a chance that these are aspiration pathogens given her movement disorder. She never had a big problem swallowing, but her movement disorder has been more difficult to control lately. Job ID: [id number]
[2018-07-24] MEDS: Ipratropium Bromide 2.5 ml Neb NEB SCH ×2 (18:42→22:17)
[2018-07-24] MEDS: Arformoterol 15 MCG/2 ML NEB NEB SCH (18:43)
[2018-07-24] MEDS: Atorvastatin Calcium 40 MG TAB PO SCH (21:06)
[2018-07-24] MEDS: Mirtazapine 15 MG TAB PO SCH (21:07)
[2018-07-24] MEDS: Amitriptyline HCl 25 MG TAB PO SCH (21:07)
[2018-07-25] MEDS: Ipratropium Bromide 2.5 ml Neb NEB SCH ×6 (02:26→22:10)
[2018-07-25] MEDS: HumaLOG 300 UNITS/3 ML VIAL SC PRN ×3 (05:39→17:00)
[2018-07-25] MEDS: Arformoterol 15 MCG/2 ML NEB NEB SCH ×2 (06:56→18:14)
[2018-07-25] MEDS: Enoxaparin Sodium 40 MG/0.4 ML SYRINGE SC SCH (08:12)
[2018-07-25] MEDS: Insulin Glargine 40 UNITS in Pre-Filled Syringe 1 EACH SC SCH ×2 (08:12→20:47)
[2018-07-25] MEDS: Benzonatate 100 MG CAP PO SCH ×3 (08:13→20:48)
[2018-07-25] MEDS: Baclofen 10 MG TAB PO SCH ×2 (08:14→20:48)
[2018-07-25] MEDS: Alogliptin 25 MG TAB PO SCH (08:14)
[2018-07-25] MEDS: Gabapentin 300 MG CAP PO SCH ×4 (08:14→20:48)
[2018-07-25] MEDS: guaiFENesin ER 600 MG TAB PO SCH ×2 (08:15→20:48)
[2018-07-25] MEDS: Hydroxychloroquine Sulfate 200 MG TAB PO SCH ×2 (08:15→20:49)
[2018-07-25] MEDS: Amlodipine 10 MG TAB PO SCH (08:16)
[2018-07-25] MEDS: Losartan 25 MG TAB PO SCH (08:17)
[2018-07-25] MEDS: hydrALAZINE 25 MG TAB PO SCH ×3 (08:18→20:48)
[2018-07-25] MEDS: cloNIDine 0.3 MG TAB PO SCH ×3 (08:18→22:03)
[2018-07-25] MEDS: cefTRIAXone\\ROCEPHIN 2 GM in Sodium Chloride 0.9% 100 ML IVPB SCH (11:36)
[2018-07-25] MEDS: Phenergan/Codeine 10-6.25mg/5ml UDCUP PO PRN ×3 (11:44→23:27)
[2018-07-25] MEDS: Sodium Chloride 0.45% 1,000 ML IV SCH ×2 (11:47→15:14)
--- NOTE | 2018-07-25 12:31 | PRG ---
DATE OF SERVICE: 07/25/2018 SUBJECTIVE: Mercedes Mcguire is doing better. She says she started coughing last night more, but it is better this morning. OBJECTIVE: VITAL SIGNS: Heart rate is 111, blood pressure is 107/55, respiratory rate 20. She slept with BiPAP again. LUNGS: Marked diffuse wheezes, but these are slightly improved. HEART: Regular rhythm. S1 and S2 are normal. ABDOMEN: Soft and nontender. EXTREMITIES: With only trace edema. IMPRESSION: 1. Pneumonia. 2. Chronic obstructive pulmonary disease. 3. History of rheumatoid arthritis. 4. History of deep brain stimulator. 5. Tremor, it is improved with Brovana. 6. Anemia of chronic disease. 7. Obesity. 8. Sleep apnea, on BiPAP. 9. Diabetes. 10. History of hypertension. 11. Lipid disorder. PLAN: Continue current care. We will give her some DM Robitussin to be given every 4 hours while she is awake for coughing. We continue with intravenous steroids. We will discontinue IV antibiotics and switched her to p.o. antimicrobial therapy today. Job ID: [id number] [facility]ITALCyn[facility]
[2018-07-25] MEDS: Amitriptyline HCl 25 MG TAB PO SCH (20:48)
[2018-07-25] MEDS: Atorvastatin Calcium 40 MG TAB PO SCH (20:48)
[2018-07-25] MEDS: Mirtazapine 15 MG TAB PO SCH (20:49)
[2018-07-26] MEDS: Ipratropium Bromide 2.5 ml Neb NEB SCH ×6 (01:47→23:18)
[2018-07-26] MEDS: HumaLOG 300 UNITS/3 ML VIAL SC PRN ×3 (05:47→17:09)
[2018-07-26] MEDS: Insulin Glargine 40 UNITS in Pre-Filled Syringe 1 EACH SC SCH ×2 (08:22→20:52)
[2018-07-26] MEDS: Sodium Chloride 0.45% 1,000 ML IV SCH (08:23)
[2018-07-26] MEDS: Alogliptin 25 MG TAB PO SCH (08:23)
[2018-07-26] MEDS: cloNIDine 0.3 MG TAB PO SCH ×4 (08:23→22:58)
[2018-07-26] MEDS: hydrALAZINE 25 MG TAB PO SCH ×3 (08:23→20:51)
[2018-07-26] MEDS: Benzonatate 100 MG CAP PO SCH ×3 (08:24→20:51)
[2018-07-26] MEDS: Baclofen 10 MG TAB PO SCH ×2 (08:24→20:51)
[2018-07-26] MEDS: guaiFENesin ER 600 MG TAB PO SCH ×2 (08:24→20:52)
[2018-07-26] MEDS: Losartan 25 MG TAB PO SCH (08:24)
[2018-07-26] MEDS: Amlodipine 10 MG TAB PO SCH (08:24)
[2018-07-26] MEDS: Gabapentin 300 MG CAP PO SCH ×4 (08:24→20:52)
[2018-07-26] MEDS: Hydroxychloroquine Sulfate 200 MG TAB PO SCH ×2 (08:24→20:52)
[2018-07-26] MEDS: Enoxaparin Sodium 40 MG/0.4 ML SYRINGE SC SCH (08:25)
[2018-07-26] MEDS: Arformoterol 15 MCG/2 ML NEB NEB SCH ×2 (09:57→19:33)
--- NOTE | 2018-07-26 16:21 | PRG ---
DATE OF SERVICE: 07/26/2018 SUBJECTIVE: She states she is feeling much better. She actually looks the best she has looked so far. OBJECTIVE: VITAL SINGS: Blood pressure is 146/72, heart rate 89, respiratory rate 16, oximetry is 95% on room air. LUNGS: Clear. HEART: Regular rhythm. ABDOMEN: Soft. EXTREMITIES: Without asymmetry or edema. Glucoses were slowly trending downward. PLAN: We will probably decrease her prednisone tomorrow, which will help enormously and consider discharge tomorrow. Job ID: [id number]
[2018-07-26] MEDS: Atorvastatin Calcium 40 MG TAB PO SCH (20:51)
[2018-07-26] MEDS: Amitriptyline HCl 25 MG TAB PO SCH (20:51)
[2018-07-26] MEDS: Mirtazapine 15 MG TAB PO SCH (20:52)
[2018-07-26 21:57] VITALS: TEMP 98.2
[2018-07-26] MEDS: Phenergan/Codeine 10-6.25mg/5ml UDCUP PO PRN (22:56)
[2018-07-27] MEDS: Ipratropium Bromide 2.5 ml Neb NEB SCH ×4 (01:52→15:26)
[2018-07-27] MEDS: Sodium Chloride 0.45% 1,000 ML IV SCH (05:10)
[2018-07-27] MEDS: HumaLOG 300 UNITS/3 ML VIAL SC PRN ×2 (05:52→15:38)
[2018-07-27 07:45] VITALS: BP 144/76
[2018-07-27] MEDS: Losartan 25 MG TAB PO SCH (08:01)
[2018-07-27] MEDS: Benzonatate 100 MG CAP PO SCH (08:02)
[2018-07-27] MEDS: Amlodipine 10 MG TAB PO SCH (08:02)
[2018-07-27] MEDS: hydrALAZINE 25 MG TAB PO SCH (08:02)
[2018-07-27] MEDS: cloNIDine 0.3 MG TAB PO SCH (08:02)
[2018-07-27] MEDS: Alogliptin 25 MG TAB PO SCH (08:03)
[2018-07-27] MEDS: guaiFENesin ER 600 MG TAB PO SCH (08:03)
[2018-07-27] MEDS: Baclofen 10 MG TAB PO SCH (08:03)
[2018-07-27] MEDS: Hydroxychloroquine Sulfate 200 MG TAB PO SCH (08:03)
[2018-07-27] MEDS: Gabapentin 300 MG CAP PO SCH ×2 (08:03→12:41)
[2018-07-27] MEDS: Enoxaparin Sodium 40 MG/0.4 ML SYRINGE SC SCH (08:04)
[2018-07-27] MEDS: Arformoterol 15 MCG/2 ML NEB NEB SCH (08:27)
[2018-07-27] MEDS: Insulin Glargine 40 UNITS in Pre-Filled Syringe 1 EACH SC SCH (09:02)
--- NOTE | 2018-07-28 02:55 | DIS ---
DATE OF ADMISSION: 07/23/2018 DATE OF DISCHARGE: 07/27/2018 Ms. Mcguire was examined today. Her lungs are clear. She states she is back near the baseline. She will be discharged home to follow up with me in a couple of weeks. DISCHARGE DIAGNOSES: 1. Community-acquired pneumonia, bilateral. 2. Chronic obstructive pulmonary disease exacerbation, she is not chronically hypoxemic. Her oximetry on room air, discharge is 92%. 3. Obesity. 4. Sleep apnea. She loved the BiPAP and wants me to get her a machine, but we will re-evaluate this and review her sleep study in the office. She will continue with nocturnal CPAP at home. 5. Movement disorder with a deep brain stimulator aggravated by the albuterol we had to use when she was acutely ill. She is back on Brovana twice a day and budesonide twice a day, and doing well. She will continue Levaquin 500 mg a day for another 9 days, prednisone 40 mg a day for 4 days and 20 mg a day until she sees me in approximately 14 days and we will cut her back to 10 mg a day. She will resume her other home medications. She will also go home with Blanca Mejía and Shea NOLAND for residual cough that she is dealing with. I encouraged her to call me should she have a clinical deterioration, otherwise I will see her in two or three weeks in the office with a chest radiograph. Job ID: [id number]
== END 2018-07-27 16:08 | disposition home or self-care (01) | DRG 194 ==
LOC: T4-A 12:17
PROVIDERS: ADMIT Internal Medicine Critical Care Medicine; ATTEND Internal Medicine Critical Care Medicine
DX: J18.9 Pneumonia, unspecified organism (principal); E87.1 Hypo-osmolality and hyponatremia; Z99.81 Dependence on supplemental oxygen; R25.1 Tremor, unspecified; F32.9 Major depressive disorder, single episode, unspecified; M54.16 Radiculopathy, lumbar region; E11.9 Type 2 diabetes mellitus without complications; I10 Essential (primary) hypertension; M06.9 Rheumatoid arthritis, unspecified; G47.30 Sleep apnea, unspecified; J45.998 Other asthma; Z79.84 Long term (current) use of oral hypoglycemic drugs; Z79.4 Long term (current) use of insulin; E66.9 Obesity, unspecified; Z68.39 Body mass index [BMI] 39.0-39.9, adult; Z96.89 Presence of other specified functional implants
CPT/HCPCS: 36415; 36416; 71046; 80048; 85007; 85027; 87040; 94640; 94660; J0696; J1650; J1956; J2920; J7050; J7620

== ENCOUNTER 2018-08-14 09:45 | Outpatient (CLI) | payer MEDICARE, BC ==
--- NOTE | 2018-08-14 11:09 | RAD ---
PA AND LATERAL CHEST X-RAY: 08/14/2018 HISTORY: Dyspnea. COMPARISON: 07/23/2018 FINDINGS: An electronic device again overlies the left chest with leads extending superiorly, overlying the lef t neck. The cardiac silhouette is at the upper limits of normal in size. A parenchymal opacity with in the left mid lung zone has significantly improved, but there is a linear area of increased density , which may be related to mild residual scarring. Parenchymal changes at the right lung base have re solved. The lungs are otherwise clear. The pulmonary vasculature is within normal limits. Degenera tive changes are noted in the spine. IMPRESSION: 1. Resolution of parenchymal opacity at the right lung base, with significant interval improvement i n the patchy interstitial parenchymal density in the left mid lung zone. 2. Mild linear densities are seen in the left mid lung zone, which may be related to mild scarring. POS: [facility]
== END 2018-08-14 09:46 | disposition home or self-care (01) ==
LOC: RAD 09:45
PROVIDERS: ATTEND Internal Medicine Critical Care Medicine
DX: R06.00 Dyspnea, unspecified (principal); J98.4 Other disorders of lung
CPT/HCPCS: 71046

== ENCOUNTER 2018-10-03 12:32 | Outpatient (CLI) | payer MEDICARE, BC | END 2018-10-03 12:33 | disposition home or self-care (01) | LOC: ULT 12:32 | PROVIDERS: ATTEND Family Medicine | DX: R06.00 Dyspnea, unspecified (principal); I34.0 Nonrheumatic mitral (valve) insufficiency | CPT/HCPCS: 93306 ==

== ENCOUNTER 2018-10-29 10:52 | Outpatient (CLI) | payer MEDICARE, BC ==
--- NOTE | 2018-10-29 11:31 | RAD ---
TWO VIEW CHEST: Comparison: 08-14-18 Indication: Dyspnea. FINDINGS: There is enlargement of the cardiac silhouette and pulmonary vasculature. Bilateral pulmonary parench ymal opacities are present in a perihilar distribution. There is thoracic kyphosis and osseous degene rative change. FINDINGS: Findings which favor decompensated CHF and pulmonary edema. Follow up to resolution is recommended. POS: [facility]
== END 2018-10-29 10:53 | disposition home or self-care (01) ==
LOC: RAD 10:52
PROVIDERS: ATTEND Internal Medicine Critical Care Medicine
DX: R06.00 Dyspnea, unspecified (principal)
CPT/HCPCS: 71046

== ENCOUNTER 2018-11-27 09:33 | Outpatient (CLI) | payer MEDICARE, BC ==
--- NOTE | 2018-11-27 10:47 | CT ---
CT THORACIC SPINE: Technique: Multiple axial tomograms were obtained through the thoracic spine with multiplanar reconst ruction. Indications: Radiculopathy. Upper back and low back pain. FINDINGS: The lower cervical vertebrae are not adequately evaluated on this exam. The thoracic vertebrae mainta in normal height and alignment throughout. There are mild to moderate degenerative changes seen with anterior osteophytes. There is a large anterior bridging osteophyte seen at T10-11. Degenerative disc changes are seen with mild loss of disc space at several levels. There is no evidence of acute compr ession or fracture. Mild osteopenia. There is evidence degenerative and spondolytic changes in the lo wer cervical spine which is not adequately evaluated. No evidence of significant disc bulge or disc protrusion seen in the thoracic spine. No evidence of c entral canal stenosis. IMPRESSION: 1. Degenerative changes of the thoracic spine as described above. No evidence of compression or acute fracture. No evidence of central canal or foraminal stenosis identified. 2. Review of lung windows shows pleural based stranding with associated nodular density in the upper right lung posterolaterally. Recommend elective CT chest for further evaluation. POS: [facility]
--- NOTE | 2018-11-27 11:09 | CT ---
CT LUMBAR SPINE: Date: 11/27/18 Multiple axial tomograms obtained through lumbar spine with multiplanar reconstructions. INDICATION: Low back pain. Correlation made to MRI lumbar spine dated 06/26/11. FINDINGS: The lumbar vertebra maintain height. There is a Grade I spondylolisthesis at L4-5 which has progresse d in severity when compared to the 2011 MRI. Degenerative disc changes at L5-S1 noted with loss of di sc space and vacuum phenomenon on at this level. The other disc spaces are preserved. Prominent facet hypertrophy is noted posteriorly. See description at each level as noted below. At L1-2, no significant disc bulge or protrusion. Mild facet hypertrophy. However, no central canal o r foraminal stenosis. At L2-3, diffuse disc bulge flattens the thecal sac. Mild to moderate facet and ligamentous hypertrop hy results in mild central canal stenosis. At L3-4, mild diffuse disc bulge. Prominent facet hypertrophy. Posterior epidural fat. Mild central c anal stenosis. Mild foraminal narrowing due to facet hypertrophy. At L4-5, there is Grade I anterior spondylolisthesis with broad based disc bulge. Very pronounced fac et hypertrophy. Severe central canal stenosis. Bilateral foraminal stenosis. At L5-S1, there are degenerative disc changes with loss of disc space and vacuum phenomenon. Broad ba sed disc bulge. Facet hypertrophy. Mild central canal stenosis. Bilateral foraminal stenosis. IMPRESSION: Central canal and foraminal stenosis are noted at L4-5 and L5-S1 levels as described above. POS: [facility]
== END 2018-11-27 09:34 | disposition home or self-care (01) ==
LOC: BICCT 09:33
PROVIDERS: ATTEND Anesthesiology
DX: M47.24 Other spondylosis with radiculopathy, thoracic region (principal); M54.16 Radiculopathy, lumbar region; M48.061 Spinal stenosis, lumbar region without neurogenic claudication; M48.07 Spinal stenosis, lumbosacral region
CPT/HCPCS: 72128; 72131

== ENCOUNTER 2018-12-27 10:44 | Outpatient (CLI) | payer MEDICARE, BC ==
--- NOTE | 2018-12-27 11:18 | MMO ---
Bilateral MAMMO Bilat Screen [facility]. CLINICAL HISTORY: Patient is 63 years old and is seen for screening. The patient has no family history of breast cancer. The patient has no personal history of cancer. VIEWS: The views performed were: bilateral craniocaudal with tomosynthesis; bilateral mediolateral oblique with tomosynthesis; and left mediolateral oblique. FILMS COMPARED: The present examination has been compared to prior imaging studies performed at [facility] on 10/22/2015, 11/29/2016 and 12/19/2017, and at [facility] on 03/22/2010 and 04/06/2011. MAMMOGRAM FINDINGS: The breasts are almost entirely fat. There are stable benign appearing calcifications seen in both breasts. There are also vascular calcifications. There are no suspicious masses, suspicious calcifications, or new areas of architectural distortion. IMPRESSION: THERE IS NO MAMMOGRAPHIC EVIDENCE OF MALIGNANCY. A ROUTINE FOLLOW-UP MAMMOGRAM IN 1 YEAR IS RECOMMENDED. THE RESULTS OF THIS EXAM WERE SENT TO THE PATIENT. ACR BI-RADS Category 2 - Benign finding MAMMOGRAPHY NOTE: 1. A negative mammogram report should not delay a biopsy if a dominant of clinically suspicious mass is present. 2. Approximately 10% to 15% of breast cancers are not detected by mammography. 3. Adenosis and dense breasts may obscure an underlying neoplasm.
== END 2018-12-27 10:45 | disposition home or self-care (01) ==
LOC: BICMAMMO 10:44
PROVIDERS: ATTEND Family Medicine
DX: Z12.31 Encounter for screening mammogram for malignant neoplasm of breast (principal)
CPT/HCPCS: 77063; 77067

== ENCOUNTER 2019-02-12 09:49 | Outpatient (CLI) | payer MEDICARE, BC ==
--- NOTE | 2019-02-12 10:51 | BD ---
BONE DENSITOMETRY: Date: 02/12/19 INDICATION: Postmenopausal osteoporosis screening. FINDINGS: Lumbar Spine: BMD (g/cm2) L1 0.984 T-Score: -0.1 L2 1.022 T-Score: -0.1 L3 1.010 T-Score: -0.7 L4 1.065 T-Score: 0.0 Total 1.023 T-Score: -0.2 Left Femoral Neck: 0.673 T-Score: -1.6 Total Femur: 0.963 T-Score: 0.2 IMPRESSION: 1. Bone mineral density of the lumbar spine within normal range. 2. Bone mineral density of the femoral neck indicates osteopenia. 10 YEAR FRACTURE RISK: Major osteoporotic fracture: 10% Hip fracture: 1.1% POS: [facility]
== END 2019-02-12 09:50 | disposition home or self-care (01) ==
LOC: BICMAMMO 09:49
PROVIDERS: ATTEND Internal Medicine Rheumatology
DX: M81.0 Age-related osteoporosis without current pathological fracture (principal); M85.852 Other specified disorders of bone density and structure, left thigh
CPT/HCPCS: 77080

== ENCOUNTER 2019-03-27 10:44 | Outpatient (CLI) | payer MEDICARE, BC ==
--- NOTE | 2019-03-27 11:14 | RAD ---
Exam: CHEST TWO VIEWS: COMPARISON: 10/29/2018 HISTORY: Dyspnea FINDINGS: Enlarged cardiac silhouette. Pulmonary vessels and hilum are normal. Costophrenic angles are clear. H yperinflation with chronic changes. No mass or consolidation. No pneumothorax or acute osseous abnormalities. Stable kyphosis. Vagal stimulator is partially included on this exam. IMPRESSION: Hyperinflation. Chronic changes. Transcribed Date/Time: 03/27/2019 11:45 AM
== END 2019-03-27 10:45 | disposition home or self-care (01) ==
LOC: RAD 10:44
PROVIDERS: ATTEND Internal Medicine Critical Care Medicine
DX: R06.00 Dyspnea, unspecified (principal); R91.8 Other nonspecific abnormal finding of lung field
CPT/HCPCS: 71046

== ENCOUNTER 2019-07-22 10:42 | Outpatient (CLI) | payer MEDICARE, BC ==
--- NOTE | 2019-07-22 11:22 | RAD ---
PA AND LATERAL VIEWS CHEST: Date: 07/22/19 COMPARISON: 03/27/19. FINDINGS: The heart size is enlarged, but stable. The lungs are well expanded with stable chronic changes. No l obar consolidation, pneumothoraces, sandy pulmonary edema, or pleural effusions are seen. Stimulator device overlying the left chest again seen. IMPRESSION: Stable exam. No acute process. POS: [facility]
== END 2019-07-22 10:43 | disposition home or self-care (01) ==
LOC: RAD 10:42
PROVIDERS: ATTEND Internal Medicine Critical Care Medicine
DX: R06.00 Dyspnea, unspecified (principal)
CPT/HCPCS: 71046

== ENCOUNTER 2019-10-15 13:17 | Inpatient (IN) | payer MEDICARE, BC ==
[2019-10-15] MEDS ORDERED: Acetaminophen 500 MG TAB ONE (13:47)
[2019-10-15 14:00] LABS: #Lymphocytes 2.1 thou/uL (1.20-3.40); #Monocytes 1.1 thou/uL (0.11-0.59); #Neutrophils 5.8 thou/uL (1.40-6.50); %Basophils 0.2 % (0.0-1.0); %Eosinophils 0.4 % (0.0-10.0); %Lymphocytes 22.9 % (21.0-51.0); %Monocytes 11.9 % (0.0-10.0); %Neutrophils 64.6 % (42.0-75.0); Hemoglobin 11.3 g/dL (12.0-16.0); Mean Corpuscular HGB CONC 33.6 g/dL (32.0-36.0); Mean Corpuscular Hemoglobin 30.3 pg (27.0-31.0); Mean Corpuscular Volume 90.2 fL (78.0-98.0); Mean Platelet Volume 8.5 fL (7.4-10.4); Platelet Count 241 thou/uL (130-400); RBC Distribution Width 15.1 % (11.5-14.5); Red Blood Cell (RBC) Count 3.73 mill/uL (4.20-5.40)
[2019-10-15 14:24] LABS: ALT (SGPT) 35 U/L (8-55); AST (SGOT) 38 U/L (5-34); Albumin 4.6 g/dL (3.4-4.8); Alkaline Phosphatase 122 U/L (40-110); Anion Gap 16 mmol/L (10-20); BUN (Urea Nitrogen) 27 mg/dL (9.8-20.1); Bilirubin, Total 0.3 mg/dL (0.2-1.2); Calc. Creatinine Clearance 0 mL/min (70-130); Calcium 9.5 mg/dL (7.8-10.44); Carbon Dioxide 32 mmol/L (23-31); Chloride 101 mmol/L (98-107); Estimated GFR-MDRD 34; Globulin 2.3 g/dL (2.4-3.5); Glucose 150 mg/dL (80-115); Potassium 3.7 mmol/L (3.5-5.1); Protein, Total 6.9 g/dL (6.0-8.3); Sodium 145 mmol/L (136-145)
[2019-10-15] MEDS ORDERED: Azithromycin 500 MG VIAL ONE (14:33)
[2019-10-15] MEDS ORDERED: cefTRIAXone\\ROCEPHIN 2 GM VIAL ONE (14:33)
--- NOTE | 2019-10-15 14:41 | RAD ---
PA AND LATERAL CHEST: Date: 10/15/2019 COMPARISON: 10/24/15 study. FINDINGS: Heart size is enlarged. Lungs appear clear of any infiltrative process. An electronic device overlyin g the left chest is seen with leads extending into the neck. IMPRESSION: Cardiomegaly with some chronic appearing lung change. POS: [facility]
[2019-10-15 15:43] LABS: Bacteria/HPF 3+ HPF (None Seen); Bilirubin Negative (Negative); Blood, Urine Negative (Negative); Clarity Clear (Clear); Glucose, Urine (Dipstick) Normal (Negative); Leukocyte 500 Leu/uL (Negative); Nitrite Negative (Negative); Protein, Urine (Dipstick) 30 mg/dL (Neg-Trace); RBC/HPF 0-3 HPF (0-3); Squamous Epithelial 0-3 HPF (0-3); Urobilinogen Normal mg/dL (Less than 2); WBC/HPF 21-50 HPF (0-3)
--- NOTE | 2019-10-15 16:03 | PDOC.FPRHP ---
- History of Present Illness Chief Complaint: fever History of Present Illness: This is a 64yo F presenting to the ER with a CC of fever, cough, congestion & feeling ill for the last 2 days. She reports fever of 103.4F at home this morning. She endorses NV and SOB with associated hypoxia down to 70% on RA per she and her . Denies chest pain. Reports cough that has yellow/green phlegm. She denies any diarrhea or dysuria. Reports a hx of COPD and has been using nebulizers regularly at home since onset of symptoms with minimal improvement. Reports great grandson was recently diagnosed with the flu and she was around him at that time. ED Course: Given duoneb, azithro, ceftiaxone, 2 L NS - Allergies/Adverse Reactions Allergies Allergy/AdvReac Type Severity Reaction Status Date / Time No Known Allergies Allergy Verified 10/15/19 22:13 - Home Medications Medication Instructions Recorded Confirmed Type Amlodipine [Norvasc] 10 mg PO DAILY 09/02/14 10/15/19 History Atorvastatin Calcium [Lipitor] 80 mg PO DAILY 09/02/14 10/15/19 History Gabapentin [Neurontin] 1 capsule PO QID 09/02/14 10/15/19 History Hydroxychloroquine Sulfate 1 tablet PO BID 09/02/14 10/15/19 History [Plaquenil] Losartan Potassium 100 mg PO DAILY 09/02/14 10/15/19 History Mirtazapine [Remeron] 15 mg PO DAILY 09/02/14 10/15/19 History Montelukast Sodium [Singulair] 10 mg PO DAILY 09/02/14 10/15/19 History Multivitamin [Multi-Vitamin Daily] 1 tablet PO DAILY 09/02/14 10/15/19 History Tiotropium [Spiriva Handihaler] 18 mcg INH DAILY 09/02/14 10/15/19 History Ubidecarenone [Co Q-10] 1 tablet PO DAILY 09/02/14 10/15/19 History Venlafaxine HCl [Effexor] 75 mg PO DAILY 09/02/14 10/15/19 History cloNIDine [Catapres] 0.3 mg PO TID 09/02/14 10/15/19 History Budesonide-Formoterol [Symbicort 1 puff INH DAILY 10/23/15 10/15/19 History 160-4.5] Ferrous Sulfate [Iron] 325 mg PO DAILY 10/23/15 10/15/19 History Hydrochlorothiazide 25 mg PO DAILY 10/23/15 10/15/19 History Abatacept [Orencia] 750 mg IVPB Q7DAYS 11/27/17 10/15/19 History Albuterol Sulfate [Proair HFA] 2 puff INH Q4HR PRN 11/27/17 10/15/19 History Arformoterol [Brovana] 15 mcg NEB BID 11/27/17 10/15/19 History Baclofen 10 mg PO TID 11/27/17 10/15/19 History Dulaglutide [Trulicity] 1.5 mg SC Q7D 11/27/17 10/15/19 History traMADol HCl [Tramadol HCl] 100 mg PO Q4HR PRN 11/27/17 10/15/19 History Furosemide [Lasix] 40 mg PO BID #30 tablet 11/28/17 10/15/19 Rx Potassium Chloride [K-Dur] 20 meq PO QAM-WM tab 11/28/17 10/15/19 Rx Cholecalciferol (Vitamin D3) 3,000 unit PO DAILY 07/23/18 10/15/19 History [Vitamin D] hydrALAZINE HCl [Hydralazine HCl] 50 mg PO TID 07/23/18 10/15/19 History Budesonide 1 ampule IN BID 10/15/19 10/15/19 History Insulin Glargine,Hum.Rec.Anlog 100 unit SQ DAILY 10/15/19 10/15/19 History [Thomas Alanis] predniSONE 10 mg PO QAM-WM 10/15/19 10/15/19 History sitaGLIPtin Phosphate [Januvia] 50 mg PO DAILY 10/15/19 10/15/19 History - History PMHx: HLD, HTN, COPD not on home O2, DMII, chronic back pain, RA PSHx: appendectomy, cholecystectomy FHx: none Social: denies alcohol, tobacco or drug use. Lives at home with . - Review of Systems General: reports: fever/chills, fatigue Respiratory: reports: cough, shortness of breath Cardiovascular: denies: chest pain Gastrointestinal: reports: nausea. denies: vomiting, diarrhea, abdominal pain Genitourinary: reports: other (no hematuria). denies: dysuria Skin: denies: rashes Musculoskeletal: denies: pain, tenderness, swelling Neurological: reports: weakness - Vital signs BP: 150/63, Pulse: 101, Resp: 20, Temp: 101.4 (Oral), Pain: 5, O2 sat: 92 on ( 2L Oxygen), Time: 10/15/2019 13:21. BP: 136/48, MAP: 77, Pulse: 100, Resp: 32, O2 sat: 99 on (2L Oxygen), Time: 2019 14:37. Weight 104kg - Physical Exam Constitutional: awake, alert and oriented -Constitutional: mild resp distress, difficulty speaking in full sentences HEENT: normocephalic and atraumatic, PERRLA, EOMI -HEENT: dry MM Neck: supple, FROM Chest: no-tender to palpation, no lesions Heart: RRR, normal S1/S2, no murmurs/rubs/gallops -Heart: tachycardic but regular rhythm Lungs: other (satting in the mid 90s on Bipap while not talking; B/L end expiratory wheezing noted) -Lungs: exp wheeze b/l; poor resp effort Abdomen: soft, non-tender, bowel sounds present Neurological: no focal deficit Skin: no rash/lesions Psychiatric: normal mood and affect FMR H&P: Results - Labs Result Diagrams: 10/16/19 06:09 10/16/19 03:31 Lab results: WBC 9.0 thou/uL (4.8-10.8) 10/15/19 13:34 Hgb 11.3 g/dL (12.0-16.0) L 10/15/19 13:34 Hct 33.7 % (36.0-47.0) L 10/15/19 13:34 MCV 90.2 fL (78.0-98.0) 10/15/19 13:34 Plt Count 241 thou/uL (130-400) 10/15/19 13:34 Neutrophils % 64.6 % (42.0-75.0) 10/15/19 13:34 Sodium 145 mmol/L (136-145) 10/15/19 13:34 Potassium 3.7 mmol/L (3.5-5.1) 10/15/19 13:34 Chloride 101 mmol/L (98-107) 10/15/19 13:34 Carbon Dioxide 32 mmol/L (23-31) H 10/15/19 13:34 BUN 27 mg/dL (9.8-20.1) H 10/15/19 13:34 Creatinine 1.54 mg/dL (0.6-1.1) H 10/15/19 13:34 Glucose 150 mg/dL (80-115) H 10/15/19 13:34 Lactic Acid 1.1 mmol/L (0.5-2.2) 10/15/19 13:34 Calcium 9.5 mg/dL (7.8-10.44) 10/15/19 13:34 Total Bilirubin 0.3 mg/dL (0.2-1.2) 10/15/19 13:34 AST 38 U/L (5-34) H 10/15/19 13:34 ALT 35 U/L (8-55) 10/15/19 13:34 Alkaline Phosphatase 122 U/L (40-110) H 10/15/19 13:34 Serum Total Protein 6.9 g/dL (6.0-8.3) 10/15/19 13:34 Albumin 4.6 g/dL (3.4-4.8) 10/15/19 13:34 Urine Ketones Negative mg/dL (Negative) 10/15/19 15:25 Urine Blood Negative (Negative) 10/15/19 15:25 Urine Nitrite Negative (Negative) 10/15/19 15:25 Ur Leukocyte Esterase 500 Shani/uL (Negative) A 10/15/19 15:25 Urine RBC 0-3 HPF (0-3) 10/15/19 15:25 Urine WBC 21-50 HPF (0-3) A 10/15/19 15:25 Ur Squamous Epith Cells 0-3 HPF (0-3) 10/15/19 15:25 Urine Bacteria 3+ HPF (None Seen) A 10/15/19 15:25 - Radiology Interpretation Chest x-ray Status: report reviewed by me (cardiomegaly, chronic lung changes) FMR H&P: A/P - Problem List (1) Influenza Current Visit: Yes Status: Acute Code(s): J11.1 - FLU DUE TO UNIDENTIFIED INFLUENZA VIRUS W OTH RESP MANIFEST (2) Acute respiratory failure with hypoxia Current Visit: Yes Status: Acute Code(s): J96.01 - ACUTE RESPIRATORY FAILURE WITH HYPOXIA (3) COPD exacerbation Current Visit: No Status: Acute Code(s): J44.1 - CHRONIC OBSTRUCTIVE PULMONARY DISEASE W (ACUTE) EXACERBATION (4) Normocytic anemia Current Visit: No Status: Acute Code(s): D64.9 - ANEMIA, UNSPECIFIED (5) UTI (urinary tract infection) Current Visit: No Status: Acute Qualifiers: Urinary tract infection type: acute cystitis Hematuria presence: without hematuria Qualified Code(s): N30.00 - Acute cystitis without hematuria (6) Diabetes mellitus Current Visit: No Status: Chronic Code(s): E11.9 - TYPE 2 DIABETES MELLITUS WITHOUT COMPLICATIONS Qualifiers: Diabetes mellitus type: type 2 Diabetes mellitus complication status: without complication (7) Hypertension Current Visit: No Status: Chronic Code(s): I10 - ESSENTIAL (PRIMARY) HYPERTENSION Qualifiers: Hypertension type: essential hypertension Qualified Code(s): I10 - Essential (primary) hypertension (8) Rheumatoid arthritis Current Visit: No Status: Chronic Code(s): M06.9 - RHEUMATOID ARTHRITIS, UNSPECIFIED (9) Community acquired pneumonia Current Visit: No Status: Suspected Code(s): J18.9 - PNEUMONIA, UNSPECIFIED ORGANISM (10) Acute and chronic respiratory failure with hypoxia Current Visit: Yes Status: Acute Code(s): J96.21 - ACUTE AND CHRONIC RESPIRATORY FAILURE WITH HYPOXIA (11) ZOE (acute kidney injury) Current Visit: No Status: Acute Code(s): N17.9 - ACUTE KIDNEY FAILURE, UNSPECIFIED (12) Sepsis Current Visit: No Status: Resolved Code(s): A41.9 - SEPSIS, UNSPECIFIED ORGANISM Qualifiers: Sepsis type: sepsis due to unspecified organism Qualified Code(s): A41.9 - Sepsis, unspecified organism - Plan Sepsis 2/2 suspected influenza and UTI Febrile, tachycardic, tachypneic and hypoxic on admission. Normal WBCs. s/p azithro and rocephin, 2L NS, duoneb in the ER. UA positive for leukocyte esterase, bacteria - For UTI: will continue rocephin, continue mIVF - For influenza: pending flu swab, start tamiflu tx 75mg BID x 5 days - Blood and urine cx pending - Procal pending - Continue to monitor VS - Admit to IMCU Acute on chronic COPD exacerbation likely 2/2 Influenza Patient with increased sputum, cough, satting 70% on RA requiring BIPAP. CXR neg for infiltrate. ABG showing pH 7.36, CO2 54, O2 153, bicarb 30. - Will give methylprednisolone x 3 then convert to prednisone PO - Procal pending - Will continue rocephin, will dc azithro as likely no pneumonia in clinical picture. - Monitor O2 sats: keep sats 88-92% - Admit to IMCU for bipap requirement -> could likely be transitioned to high flow NC ZOE BUN/CR /1.54, above baseline per chart review. - Will start mIVF, will continue to monitor kidney fxn Elevated Troponins Likely due to demand ischemia. EKG nml. Pt asymptomatic. - Will continue to monitor DMII - aware, ACHS, mild SS HTN - aware, continue home meds HLD - aware, continue meds Chronic back pain - aware, continue meds Diet: CC VTE: heparin PCP: Monica Dispo: admit to the IMCU, inpt Case discussed with Dr. Arnold Addendum - Attending - Attending Attestation Date/Time: 10/16/19 0918 I personally evaluated the patient and discussed the management with the team. I agree with the History, Examination, Assessment and Plan documented above with any addition or exceptions noted below. Patient off bipap during my evaluation. She has a history c/w flu exposure and illness. On exam she has poor air movement with wheezing. Sepsis 2/2 flu complicated by COPD -steroids -tamiflu -nebs scheduled Continue close monitoring in the IMCU.
[2019-10-15 16:41] LABS: Actual Bicarbonate (HCO3a) 29.9 mEq/L (22-28); Analyzer IN Cardio ER; Base Excess (BEa) 3.6 mEq/L (-2.0 to +3.0); CO2 Tension 54.2 mmHg (35.0-45.0); Calcium, Ionized 1.11 mmol/L (1.12-1.30); Carboxyhemoglobin (COHb) 0.3 gm% (0.0-3.0); Hemoglobin (Hb) 10.4 g/dL (12.0-16.0); O2 Tension (PaO2) 153.6 mmHg (> 80.0); Potassium - ABG Lab 3.47 mmol/L (3.70-5.30); pH, Arterial 7.36 (7.35-7.45)
[2019-10-15 16:48] LABS: Puncture Site RRA
[2019-10-15 17:06] LABS: Troponin I 0.067 ng/mL (< 0.028)
[2019-10-15] MEDS ORDERED: Ondansetron ODT 4 MG TAB PO PRN (17:35)
[2019-10-15] MEDS ORDERED: Acetaminophen 650 MG Suppository PR PRN (17:35)
[2019-10-15] MEDS ORDERED: Ondansetron PF 4 MG/2 ML Vial IVP PRN (17:35)
[2019-10-15] MEDS ORDERED: Dextrose 5% in Water 1,000 ML IV PRN (17:59)
[2019-10-15] MEDS ORDERED: Dextrose 50% Abboject 50 ML SYRINGE SLOW IVP PRN (17:59)
[2019-10-15 19:54] LABS: Troponin I 0.054 ng/mL (< 0.028)
[2019-10-15] MEDS: Oseltamivir 75 MG CAP PO SCH (20:37)
[2019-10-15] MEDS: Heparin 5,000 UNITS/ML VIAL SC SCH (20:37)
[2019-10-15] MEDS: methylPREDNISolone Sod Succ/PF 125 MG/2 ML VIAL IVP SCH (20:38)
[2019-10-15] MEDS: Acetaminophen 325 MG TAB PO PRN (21:05)
[2019-10-15 22:40] LABS: Troponin I 0.042 ng/mL (< 0.028)
[2019-10-16] MEDS ORDERED: PROVENTIL INHALER 6.7 G (200 INHALATIONS) INH PRN (00:16)
[2019-10-16] MEDS ORDERED: Dulaglutide [Trulicity] 1.5 MG SC SCH (00:30)
[2019-10-16] MEDS: Acetaminophen 325 MG TAB PO PRN ×2 (03:22→09:45)
[2019-10-16 04:01] LABS: Anion Gap 17 mmol/L (10-20); BUN (Urea Nitrogen) 23 mg/dL (9.8-20.1); Calc. Creatinine Clearance 78 mL/min (70-130); Calcium 8.6 mg/dL (7.8-10.44); Carbon Dioxide 21 mmol/L (23-31); Chloride 104 mmol/L (98-107); Estimated GFR-MDRD 47; Glucose 230 mg/dL (80-115); Potassium 4.2 mmol/L (3.5-5.1); Sodium 138 mmol/L (136-145)
[2019-10-16] MEDS: HumaLOG 300 UNITS/3 ML VIAL SC PRN ×3 (06:01→21:43)
[2019-10-16 06:29] LABS: #Eosinphils 0.1 thou/uL (0.0-0.7); #Lymphocytes 1.2 thou/uL (1.20-3.40); #Monocytes 0.2 thou/uL (0.11-0.59); #Neutrophils 5.9 thou/uL (1.40-6.50); %Basophils 0.2 % (0.0-1.0); %Eosinophils 1.1 % (0.0-10.0); %Lymphocytes 16.1 % (21.0-51.0); %Monocytes 3.1 % (0.0-10.0); %Neutrophils 79.5 % (42.0-75.0); Hemoglobin 10.9 g/dL (12.0-16.0); Mean Corpuscular HGB CONC 32.2 g/dL (32.0-36.0); Mean Corpuscular Volume 93.2 fL (78.0-98.0); Mean Platelet Volume 8.3 fL (7.4-10.4); Platelet Count 213 thou/uL (130-400); RBC Distribution Width 15.1 % (11.5-14.5); Red Blood Cell (RBC) Count 3.64 mill/uL (4.20-5.40); White Blood Cell (WBC) Count 7.5 thou/uL (4.8-10.8)
[2019-10-16] MEDS: Arformoterol 15 MCG/2 ML NEB NEB SCH ×2 (07:49→18:45)
[2019-10-16] MEDS: Budesonide 0.5 MG/2 ML NEB NEB SCH ×2 (07:49→18:46)
[2019-10-16] MEDS: Mometasone/Formoterol 120 PUFF INHALER INH SCH (07:50)
[2019-10-16] MEDS ORDERED: Metoclopramide HCl 10 MG/2 ML VIAL IVP PRN (08:04)
--- NOTE | 2019-10-16 08:07 | PDOC.FM ---
- Subjective Subjective: Patient states that overnight was "rough." She states she just feels miserable. She endorses feeling feverish, nausea, denies vomiting, chest pain, palpitations. Has not been able to eat, but keeping some fluids down. Reports her breathing is improved but still difficult. She was taken off of bipap around 2100 last night and switched to NC. - Objective MAR Reviewed: Yes Vital Signs & Weight: Vital Signs (12 hours) Temp Pulse Resp Pulse Ox 10/16/19 07:48 95 24 H 94 L 10/16/19 07:46 96.7 F L 10/16/19 03:25 99.0 F 10/16/19 02:02 104 H 10/16/19 00:00 98.3 F 10/15/19 23:46 101 H 19 90 L 10/15/19 21:35 101.9 F H Weight Weight 102.654 kg Most Recent Monitor Data Heart Rate from ECG 96 NIBP 164/102 NIBP BP-Mean 122 Respiration from ECG 29 SpO2 98 I&O: 10/15/19 10/16/19 10/17/19 06:59 06:59 06:59 Intake Total 800 Output Total 750 Balance 50 Result Diagrams: 10/16/19 06:09 10/16/19 03:31 Phys Exam - Physical Examination mild distress HEENT: PERRLA, moist MMs, sclera anicteric Neck: full ROM Respiratory: no rales, no rhonchi expiratory wheeze heard b/l Cardiovascular: RRR Gastrointestinal: soft, non-tender, no distention, positive bowel sounds Musculoskeletal: no edema Neurological: non-focal Psychiatric: normal affect, A&O x 3 Skin: no rash, normal turgor, cap refill <2 seconds Dx/Plan (1) Influenza Code(s): J11.1 - FLU DUE TO UNIDENTIFIED INFLUENZA VIRUS W OTH RESP MANIFEST Status: Acute (2) Acute respiratory failure with hypoxia Code(s): J96.01 - ACUTE RESPIRATORY FAILURE WITH HYPOXIA Status: Acute (3) COPD exacerbation Code(s): J44.1 - CHRONIC OBSTRUCTIVE PULMONARY DISEASE W (ACUTE) EXACERBATION Status: Acute (4) Normocytic anemia Code(s): D64.9 - ANEMIA, UNSPECIFIED Status: Acute (5) UTI (urinary tract infection) Status: Acute Qualifiers: Urinary tract infection type: acute cystitis Hematuria presence: without hematuria Qualified Code(s): N30.00 - Acute cystitis without hematuria (6) Diabetes mellitus Code(s): E11.9 - TYPE 2 DIABETES MELLITUS WITHOUT COMPLICATIONS Status: Chronic Qualifiers: Diabetes mellitus type: type 2 Diabetes mellitus complication status: without complication (7) Hypertension Code(s): I10 - ESSENTIAL (PRIMARY) HYPERTENSION Status: Chronic Qualifiers: Hypertension type: essential hypertension Qualified Code(s): I10 - Essential (primary) hypertension (8) Rheumatoid arthritis Code(s): M06.9 - RHEUMATOID ARTHRITIS, UNSPECIFIED Status: Chronic (9) Community acquired pneumonia Code(s): J18.9 - PNEUMONIA, UNSPECIFIED ORGANISM Status: Suspected (10) Acute and chronic respiratory failure with hypoxia Code(s): J96.21 - ACUTE AND CHRONIC RESPIRATORY FAILURE WITH HYPOXIA Status: Acute (11) ZOE (acute kidney injury) Code(s): N17.9 - ACUTE KIDNEY FAILURE, UNSPECIFIED Status: Acute - Plan Plan: Sepsis 2/2 influenza A/H1 and UTI Febrile, tachycardic, tachypneic and hypoxic on admission. Normal WBCs. s/p azithro and rocephin, 2L NS, duoneb in the ER. UA positive for leukocyte esterase, bacteria - For UTI: will continue rocephin, continue mIVF. Urine cx: presumptive klebsiella/enterobacter - will await sensitivities to tailor antibiotics. - For influenza: Flu swab positive for influenza A and H1; Continue tamiflu tx 75mg BID x 5 days - Blood cx: NGTD, Procal 0.18 - Continue to monitor VS - PT/OT consulted Acute on chronic COPD exacerbation 2/2 Influenza A/H1 infection Patient with increased sputum, cough, satting 70% on RA requiring BIPAP. CXR neg for infiltrate. ABG showing pH 7.36, CO2 54, O2 153, bicarb 30. - Will give methylprednisolone x 3 then convert to prednisone PO - Will continue rocephin, will dc azithro as likely no pneumonia in clinical picture. - Monitor O2 sats: keep sats 88-92% - Continue home breathing treatments. Duoneb Contreras. - Patient can likely be transitioned out of the IMCU to the floor as she is now satting well on NC. ZOE, improved BUN/CR 27/1.54, above baseline per chart review on admission. - BUN/Cr: 38/1.19 - will continue to monitor. Continue mIVF. Elevated Troponins Likely due to demand ischemia. EKG nml. Pt asymptomatic. - Trops have downtrended. DMII - aware, ACHS, mild SS. Home glargine re-started - 80uqAM. Will adjust as needed. HTN - aware, continue home meds HLD - aware, continue meds Chronic back pain - aware, continue meds RA - aware, continue home meds. On DMARD and plaquenil. Diet: CC VTE: heparin PCP: Monica Dispo: pending clinical course Case discussed with Dr. Montes Addendum - Attending - Attending Attestation Date/Time: 10/16/19 1203 I personally evaluated the patient and discussed the management with Dr. Vela. I agree with the History, Examination, Assessment and Plan documented above with any addition or exceptions noted below. Patient having acute resp distress during rounds. ABG showed stable pH, low PO2 and improving PCO2. Patient had sx shortly after receiving reglan, steroids, and neb tx. No Signs NMS. Will give ativan to calm if having air hunger and place on bipap. Pulm notified. Will f/u recs. DDx includes panic attack vs acute hypoxic resp distress vs possible medication reaction.
[2019-10-16] MEDS ORDERED: INSULIN GLARGINE HUM REC ANLOG 100 UNIT SQ SCH (09:00)
[2019-10-16] MEDS ORDERED: Non-Formulary Item 1 EACH (Tiotropium [Spiriva Handihaler] 18 MCG) INH SCH (09:00)
[2019-10-16] MEDS ORDERED: Insulin Glargine 80 UNITS in Pre-Filled Syringe 1 EACH SC SCH (09:00)
[2019-10-16] MEDS ORDERED: [UNRECOGNIZED DRUG - OTHER] SQ SCH (09:00)
[2019-10-16] MEDS ORDERED: Enoxaparin Sodium 40 MG/0.4 ML SYRINGE SC SCH (09:00)
[2019-10-16] MEDS ORDERED: hydrALAZINE 20 MG/ML VIAL SLOW IVP PRN (09:08)
[2019-10-16] MEDS: methylPREDNISolone Sod Succ/PF 125 MG/2 ML VIAL IVP SCH ×2 (09:12→21:40)
[2019-10-16] MEDS: Heparin 5,000 UNITS/ML VIAL SC SCH ×3 (09:14→21:40)
[2019-10-16] MEDS: Alogliptin 6.25 MG TAB PO SCH (10:03)
[2019-10-16] MEDS: Multivit, Therapeutic 1 TAB PO SCH (10:04)
[2019-10-16] MEDS: Ubidecarenone 50 MG CAP PO SCH (10:06)
[2019-10-16] MEDS: Atorvastatin Calcium 40 MG TAB PO SCH (10:07)
[2019-10-16] MEDS: Ferrous Sulfate 325 MG TAB PO SCH (10:07)
[2019-10-16] MEDS: Montelukast Sodium 10 mg Tablet PO SCH (10:09)
[2019-10-16 10:19] LABS: Base Excess (BEa) -1.2 mEq/L (-2.0 to +3.0); CO2 Tension 48.4 mmHg (35.0-45.0); Calcium, Ionized 1.14 mmol/L (1.12-1.30); Carboxyhemoglobin (COHb) 1.6 gm% (0.0-3.0); Hemoglobin (Hb) 11.4 g/dL (12.0-16.0); pH, Arterial 7.33 (7.35-7.45)
[2019-10-16 10:20] LABS: Puncture Site RR
[2019-10-16] MEDS ORDERED: Lorazepam 2 MG/ML VIAL ONE (10:24)
[2019-10-16] MEDS: Lorazepam 2 MG/ML VIAL SLOW IVP PRN ×2 (10:31→21:50)
[2019-10-16] MEDS ORDERED: Promethazine HCl 12.5 MG in Sodium Chloride 0.9% 50 ML IVPB PRN (10:47)
[2019-10-16 10:59] LABS: Troponin I 0.024 ng/mL (< 0.028)
[2019-10-16] MEDS: cloNIDine 0.3 MG TAB PO SCH ×3 (12:30→21:38)
[2019-10-16] MEDS: Potassium Chloride 20 MEQ TAB PO SCH (12:30)
[2019-10-16] MEDS: Mirtazapine 15 MG TAB PO SCH (12:30)
[2019-10-16] MEDS: Hydroxychloroquine Sulfate 200 MG TAB PO SCH ×2 (12:30→21:39)
[2019-10-16] MEDS: hydrALAZINE 25 MG TAB PO SCH ×3 (12:30→21:38)
[2019-10-16] MEDS: Losartan 25 MG TAB PO SCH (12:30)
[2019-10-16] MEDS: Oseltamivir 75 MG CAP PO SCH ×2 (12:30→21:39)
[2019-10-16] MEDS: Gabapentin 300 MG CAP PO SCH ×4 (12:30→21:39)
[2019-10-16] MEDS: Amlodipine 10 MG TAB PO SCH (12:30)
[2019-10-16] MEDS: Baclofen 10 MG TAB PO SCH ×3 (12:30→21:39)
[2019-10-16] MEDS: Furosemide 40 MG TAB PO SCH ×2 (12:30→21:38)
[2019-10-16] MEDS: Hydrochlorothiazide 25 MG TAB PO SCH (12:30)
--- NOTE | 2019-10-16 13:44 | PDOC.PULCN ---
Pulmonology Consult: HPI - Date of Consult Date: 10/16/19 Time: 14:11 - Consult Details Reason for Consult: COPD exacerbation 2/2 influenza A/H1; on bipap Requesting Physician: Shilpa Vela - History of Present Illness HPI: KADE DONALDSON is a 64 year-old F with a PMH notable for COPD, DEION, obesity, HTN, and DMII who presented to the ED with a CC of malaise with associated fever/chills, SOB and hypoxia. Per the patient, over the last 2 days she began to feel progressively worse and on the AM of presentation she had a fever of 103F at home and her oxygen level via a home O2 sat finger monitor was low at 70%. She therefore decided to come to the ED for evaluation. She reported that her great grandson, who she was recently around, was recently diagnosed with the flu. She actually saw her PCP in the office 2 days ago and was started on tamiflu, of which she took 3 doses. She reports a cough productive of green/yellow phlegm but no blood and some N/V as well. The patient was started on Bipap in the ED for persistent hypoxia even on up to 4L NC and was therefore admitted to the IMCU. She was weaned down to NC overnight but by the AM she was reportedly hypoxic again down into the 70s so she was placed back on Bipap. The patient denies feeling SOB when her O2 sats were noted to be that low. Says she feels much better now than she did this AM and was able to eat half a sandwich and a cookie for lunch. Pulmonology Consult: ROS - Review of Systems Constitutional: fever, chills, malaise Cardiovascular: negative: chest pain, palpitations Respiratory: cough, productive cough, short of breath Pulmonology Consult: PMH Source: patient Past Medical History: PMHx: HLD, HTN, COPD not on home O2, DEION, DMII, chronic back pain, RA PSHx: appendectomy, cholecystectomy - Family History Family history: reviewed and not pertinent - Social History Smoking Status: Former smoker Alcohol Use: none Drug Use History: none Living Situation: Pulmonology Consult: Meds - Medications MAR Reviewed: Yes Medications: Current Medications Abatacept (Orencia) 750 mg IVPB Q7DAYS JENNA Acetaminophen (Tylenol) 650 mg PO Q4H PRN PRN Reason: Headache/Fever/Mild Pain (1-3) Last Admin: 10/16/19 09:45 Dose: 650 mg Acetaminophen (Tylenol) 650 mg KS Q4H PRN PRN Reason: Headache/Fever/Mild Pain (1-3) Albuterol Sulfate (Proventil Hfa) 2 puff INH Q4HR PRN PRN Reason: SOB &/or Wheezing Albuterol/Ipratropium (Duoneb) 3 ml NEB [id number] [facility] Last Admin: 10/16/19 13:37 Dose: 3 ml Alogliptin Benzoate (Alogliptin) 12.5 mg PO DAILY [facility] Last Admin: 10/16/19 10:03 Dose: Not Given Amlodipine Besylate (Norvasc) 10 mg PO DAILY [facility] Last Admin: 10/16/19 10:01 Dose: 10 mg Arformoterol Tartrate (Brovana) 15 mcg NEB BID-RT [facility] Last Admin: 10/16/19 07:49 Dose: 15 mcg Atorvastatin Calcium (Lipitor) 80 mg PO DAILY [facility] Last Admin: 10/16/19 10:07 Dose: Not Given Baclofen (Lioresal) 10 mg PO TID [facility] Last Admin: 10/16/19 10:02 Dose: 10 mg Budesonide (Pulmicort Neb Solution) 0.5 mg NEB BID-RT [facility] Last Admin: 10/16/19 07:49 Dose: 0.5 mg Cholecalciferol (Vitamin D3) 3,000 units PO DAILY [facility] Last Admin: 10/16/19 10:07 Dose: Not Given Clonidine (Catapres) 0.3 mg PO TID [facility] Last Admin: 10/16/19 10:01 Dose: 0.3 mg Coenzyme Q10 (Coenzyme Q10) 100 mg PO DAILY [facility] Last Admin: 10/16/19 10:06 Dose: Not Given Dextrose/Water (Dextrose 50%) 25 gm SLOW IVP PRN PRN PRN Reason: Hypoglycemia Ferrous Sulfate (Feosol) 325 mg PO DAILY [facility] Last Admin: 10/16/19 10:07 Dose: Not Given Furosemide (Lasix) 40 mg PO BID [facility] Last Admin: 10/16/19 10:01 Dose: 40 mg Gabapentin (Neurontin) 600 mg PO QID [facility] Last Admin: 10/16/19 10:02 Dose: 600 mg Glucagon (Glucagon) 1 mg IM PRN PRN PRN Reason: Hypoglycemia Heparin Sodium (Porcine) (Heparin) 5,000 units SC TID [facility] Last Admin: 10/16/19 09:14 Dose: 5,000 units Hydralazine HCl (Apresoline) 50 mg PO TID [facility] Last Admin: 10/16/19 10:02 Dose: 50 mg Hydralazine HCl (Apresoline) 10 mg SLOW IVP Q4H PRN PRN Reason: SBP >180 and/or DBP >110 Hydrochlorothiazide (Hydrochlorothiazide) 25 mg PO DAILY [facility] Last Admin: 10/16/19 10:01 Dose: 25 mg Hydroxychloroquine Sulfate (Plaquenil) 200 mg PO BID [facility] Last Admin: 10/16/19 10:09 Dose: 200 mg Ceftriaxone Sodium 1 gm/ (Sodium Chloride) 100 mls @ 200 mls/hr IVPB Q24HR [facility] Dextrose/Water (D5w) 1,000 mls @ 0 mls/hr IV .Q0M PRN PRN Reason: Hypoglycemia Insulin Glargine 80 units/ (Miscellaneous Medication) 0.8 mls @ 0 mls/hr SC QAM [facility] Last Admin: 10/16/19 09:13 Dose: 0.8 mls Promethazine HCl 12.5 mg/ (Sodium Chloride) 50.5 mls @ 202 mls/hr IVPB Q6H PRN PRN Reason: Nausea/Vomiting Insulin Human Lispro (Humalog) 0 units SC .MILD SLIDING SCALE PRN PRN Reason: Mild Correctional Scale Last Admin: 10/16/19 06:01 Dose: 3 unit Lorazepam (Ativan) 1 mg SLOW IVP Q6H PRN PRN Reason: Anxiety/Agitation Last Admin: 10/16/19 10:31 Dose: 1 mg Losartan Potassium (Cozaar) 100 mg PO DAILY [facility] Last Admin: 10/16/19 10:00 Dose: 100 mg Methylprednisolone Sodium Succinate (Solu-Medrol) 60 mg IVP Q12HR [facility] Stop: 10/16/19 21:01 Last Admin: 10/16/19 09:12 Dose: 60 mg Mirtazapine (Remeron) 15 mg PO DAILY [facility] Last Admin: 10/16/19 10:08 Dose: 15 mg Mometasone Furoate/Formoterol Fumar (Dulera 200 Mcg/5 Mcg Inhaler) 1 puff INH DAILY-RT [facility] Last Admin: 10/16/19 07:50 Dose: 1 puff Montelukast Sodium (Singulair) 10 mg PO DAILY [facility] Last Admin: 10/16/19 10:09 Dose: Not Given Multivitamins (Theragran) 1 tab PO DAILY [facility] Last Admin: 10/16/19 10:04 Dose: Not Given Ondansetron HCl (Zofran Odt) 4 mg PO Q6H PRN PRN Reason: Nausea/Vomiting Last Admin: 10/16/19 09:10 Dose: 4 mg Ondansetron HCl (Zofran) 4 mg IVP Q6H PRN PRN Reason: Nausea/Vomiting Last Admin: 10/16/19 06:01 Dose: 4 mg Oseltamivir Phosphate (Tamiflu) 75 mg PO BID [facility] Stop: 10/20/19 09:01 Last Admin: 10/16/19 10:03 Dose: 75 mg Dulaglutide [ (Trulicity] 1.5 Mg) 0 each SC Q7D [facility] Pneumococcal 13-Valent Conj Vacc (Prevnar) 0.5 ml IM .ONCE ONE Stop: 10/16/19 21:01 Potassium Chloride (K-Dur) 20 meq PO QAM-WM [facility] Last Admin: 10/16/19 10:02 Dose: 20 meq Prednisone (Prednisone) 40 mg PO DAILY [facility] Sodium Chloride (Flush - Normal Saline) 10 ml IVF Q12HR [facility] Last Admin: 10/16/19 09:11 Dose: 10 ml Sodium Chloride (Flush - Normal Saline) 10 ml IVF PRN PRN PRN Reason: Saline Flush Last Admin: 10/16/19 09:46 Dose: 10 ml Venlafaxine HCl (Effexor) 75 mg PO DAILY [facility] Last Admin: 10/16/19 10:00 Dose: 75 mg - Allergies Allergies/Adverse Reactions: Allergies Allergy/AdvReac Type Severity Reaction Status Date / Time No Known Allergies Allergy Verified 10/15/19 22:13 Pulmonology Consult: PE - Physical Exam Deviation from normal: On Bipap w/ mild SOB with talking on exam HEENT: moist MMs Neck: supple, full ROM Cardiovascular: RRR, no significant murmur Respiratory: clear to auscultation bilaterally, decreased breath sounds. negative: rhonchi, stridor, wheezes Gastrointestinal: soft, non-tender, no distention, positive bowel sounds Musculoskeletal: no edema, pulses present Neurological: non-focal, normal sensation, moves all 4 limbs Psychiatric: normal affect, A&O x 3 Skin: no rash, normal turgor, cap refill <2 seconds Pulmonology Consult: Results - Labs Result Diagrams: 10/16/19 06:09 10/16/19 03:31 - ABG Interpretation ABG Results: ABG pH 7.33 (7.35-7.45) L 10/16/19 10:11 ABG pCO2 48.4 mmHg (35.0-45.0) H 10/16/19 10:11 ABG O2 Sat Calc/Regi 85.1 % (94.0-98.0) L* 10/16/19 10:11 ABG Base Excess -1.2 mEq/L (-2.0 to +3.0) 10/16/19 10:11 Interpretation: respiratory acidosis - Radiology Interpretation Chest x-ray Status: image reviewed by me, report reviewed by me (cardiomegaly with LLL infiltrate) Pulmonology Consult: A/P - Problem (1) Influenza Current Visit: Yes Code(s): J11.1 - FLU DUE TO UNIDENTIFIED INFLUENZA VIRUS W OTH RESP MANIFEST Status: Acute (2) Acute respiratory failure with hypoxia Current Visit: Yes Code(s): J96.01 - ACUTE RESPIRATORY FAILURE WITH HYPOXIA Status: Acute (3) COPD exacerbation Current Visit: No Code(s): J44.1 - CHRONIC OBSTRUCTIVE PULMONARY DISEASE W ( ACUTE) EXACERBATION Status: Acute (4) Normocytic anemia Current Visit: No Code(s): D64.9 - ANEMIA, UNSPECIFIED Status: Chronic (5) UTI (urinary tract infection) Current Visit: No Status: Acute Qualifiers: Urinary tract infection type: acute cystitis Hematuria presence: without hematuria Qualified Code(s): N30.00 - Acute cystitis without hematuria (6) Diabetes mellitus Current Visit: No Code(s): E11.9 - TYPE 2 DIABETES MELLITUS WITHOUT COMPLICATIONS Status: Chronic Qualifiers: Diabetes mellitus type: type 2 Diabetes mellitus complication status: without complication (7) Hypertension Current Visit: No Code(s): I10 - ESSENTIAL (PRIMARY) HYPERTENSION Status: Chronic Qualifiers: Hypertension type: essential hypertension Qualified Code(s): I10 - Essential (primary) hypertension (8) Rheumatoid arthritis Current Visit: No Code(s): M06.9 - RHEUMATOID ARTHRITIS, UNSPECIFIED Status : Chronic (9) Community acquired pneumonia Current Visit: No Code(s): J18.9 - PNEUMONIA, UNSPECIFIED ORGANISM Status: Suspected (10) DEION (obstructive sleep apnea) Current Visit: Yes Code(s): G47.33 - OBSTRUCTIVE SLEEP APNEA (ADULT) ( PEDIATRIC) Status: Chronic - Time Time: 50% of the time was spent in coordination of care (as documented) at patient's floor/unit and/or counseling patient. Time with Patient: greater than 50 minutes - Plan Plan: 64YOF with a PMH notable for COPD, DEION, HTN, & DMII who presented to the ED for malaise, fever, a productive cough and hypoxia and was found to have acute hypoxic respiratory failure and sepsis 2/2 influenza and a UTI. 1. Acute on chronic COPD exacerbation 2/2 Influenza A & H1 infection: Wean from Bipap as tolerated w/ breaks TID minimally & increase as tolerated. Continue JENNA steroids, Duonebs & PRN albuterol. Continue close monitoring in IMCU overnight. 2. Respiratory acidosis with hypoxia: ABG obtained this AM showed pH of 7.3 PCO2 of ~45 & PO2 of 58. Continue Bipap as noted above. 3. Sepsis 2/2 suspected influenza and UTI, improving: Continue tamiflu & rocephin. Will add levaquin 750mg Q24H for at least 5 days since IC w/ RA meds & LLL infiltrate noted on CXR. Tolerating PO so no need for continued IVFs as BP & HR WNLs as well. Continue respiratory care & support as described for problem #1. 4. DEION: Instructed to bring home Bipap to hospital for patient to use HS. 5. ZOE: Improving. Encouraged PO fluid intake. 6. DMII: Home meds & SSI. 7. HTN: continue home meds 8. HLD: continue meds 9. Chronic back pain: continue meds 10. Anxiety/depression: Continue home meds w/ PRN ativan and/or hydroxyzine. 11. RA- home meds Dispo: Continue close monitoring in IMCU overnight on Bipap.
[2019-10-16] MEDS ORDERED: cefTRIAXone\\ROCEPHIN 1 GM in Sodium Chloride 0.9% 100 ML IVPB SCH (14:00)
[2019-10-16] MEDS ORDERED: Polyethylene Glycol 3350 17 GM Packet PO PRN (14:37)
[2019-10-16] MEDS ORDERED: Prevnar 13-Val Conj/PF 0.5 ML SYRINGE IM ONE (21:00)
[2019-10-16] MEDS: Docusate Calcium (SURFAK) 240 MG CAP PO SCH (22:23)
[2019-10-17 03:42] LABS: #Lymphocytes 1.1 thou/uL (1.20-3.40); #Monocytes 0.5 thou/uL (0.11-0.59); #Neutrophils 6.8 thou/uL (1.40-6.50); %Basophils 0.2 % (0.0-1.0); %Eosinophils 0.1 % (0.0-10.0); %Lymphocytes 13.2 % (21.0-51.0); %Monocytes 5.3 % (0.0-10.0); %Neutrophils 81.2 % (42.0-75.0); Hemoglobin 10.3 g/dL (12.0-16.0); Mean Corpuscular Hemoglobin 30.5 pg (27.0-31.0); Mean Corpuscular Volume 89.8 fL (78.0-98.0); Mean Platelet Volume 8.3 fL (7.4-10.4); Platelet Count 242 thou/uL (130-400); RBC Distribution Width 14.7 % (11.5-14.5); Red Blood Cell (RBC) Count 3.38 mill/uL (4.20-5.40); White Blood Cell (WBC) Count 8.4 thou/uL (4.8-10.8)
[2019-10-17 04:03] LABS: Anion Gap 16 mmol/L (10-20); BUN (Urea Nitrogen) 28 mg/dL (9.8-20.1); Calc. Creatinine Clearance 60 mL/min (70-130); Carbon Dioxide 25 mmol/L (23-31); Chloride 102 mmol/L (98-107); Estimated GFR-MDRD 36; Glucose 311 mg/dL (80-115); Potassium 4.4 mmol/L (3.5-5.1); Sodium 139 mmol/L (136-145)
[2019-10-17] MEDS: HumaLOG 300 UNITS/3 ML VIAL SC PRN ×4 (06:08→21:12)
[2019-10-17] MEDS: Budesonide 0.5 MG/2 ML NEB NEB SCH ×2 (06:52→19:53)
[2019-10-17] MEDS: Arformoterol 15 MCG/2 ML NEB NEB SCH ×2 (06:52→19:52)
[2019-10-17] MEDS: Mometasone/Formoterol 120 PUFF INHALER INH SCH (06:53)
[2019-10-17] MEDS ORDERED: Lactated Ringer's 1,000 ML IV SCH (08:00)
--- NOTE | 2019-10-17 08:04 | PDOC.FM ---
- Subjective Subjective: NAEO. Patient resting comfortably in bed. She states that she was able to rest throughout the night. She states that her breathing is much better than yesterday and she feels better overall. Denies any NVD, chest pain, palpitations , abdominal pain. - Objective MAR Reviewed: Yes Vital Signs & Weight: Vital Signs (12 hours) Temp Pulse Resp BP Pulse Ox 10/17/19 06:53 80 19 95 10/17/19 06:52 80 19 95 10/17/19 03:36 97.4 F L 10/16/19 23:36 83 23 H 93 L 10/16/19 23:33 97.8 F 10/16/19 21:38 101 H 179/84 H 10/16/19 20:00 94 L Weight Weight 101.293 kg Most Recent Monitor Data Heart Rate from ECG 85 NIBP 134/56 NIBP BP-Mean 82 Respiration from ECG 25 SpO2 97 I&O: 10/16/19 10/17/19 10/18/19 06:59 06:59 06:59 Intake Total 800 1621 Output Total 750 400 Balance 50 1221 Result Diagrams: 10/17/19 03:08 10/17/19 03:08 Phys Exam - Physical Examination Constitutional: NAD HEENT: PERRLA, moist MMs, sclera anicteric Neck: supple, full ROM Respiratory: clear to auscultation bilateral Cardiovascular: RRR, no significant murmur, no rub Gastrointestinal: soft, non-tender, no distention, positive bowel sounds trace edema Neurological: non-focal Psychiatric: normal affect, A&O x 3 Skin: no rash, normal turgor, cap refill <2 seconds Dx/Plan (1) Influenza Code(s): J11.1 - FLU DUE TO UNIDENTIFIED INFLUENZA VIRUS W OTH RESP MANIFEST Status: Acute (2) Acute respiratory failure with hypoxia Code(s): J96.01 - ACUTE RESPIRATORY FAILURE WITH HYPOXIA Status: Acute (3) COPD exacerbation Code(s): J44.1 - CHRONIC OBSTRUCTIVE PULMONARY DISEASE W (ACUTE) EXACERBATION Status: Acute (4) Normocytic anemia Code(s): D64.9 - ANEMIA, UNSPECIFIED Status: Chronic (5) UTI (urinary tract infection) Status: Acute Qualifiers: Urinary tract infection type: acute cystitis Hematuria presence: without hematuria Qualified Code(s): N30.00 - Acute cystitis without hematuria (6) Diabetes mellitus Code(s): E11.9 - TYPE 2 DIABETES MELLITUS WITHOUT COMPLICATIONS Status: Chronic Qualifiers: Diabetes mellitus type: type 2 Diabetes mellitus complication status: without complication (7) Hypertension Code(s): I10 - ESSENTIAL (PRIMARY) HYPERTENSION Status: Chronic Qualifiers: Hypertension type: essential hypertension Qualified Code(s): I10 - Essential (primary) hypertension (8) Rheumatoid arthritis Code(s): M06.9 - RHEUMATOID ARTHRITIS, UNSPECIFIED Status: Chronic (9) Community acquired pneumonia Code(s): J18.9 - PNEUMONIA, UNSPECIFIED ORGANISM Status: Suspected (10) Acute and chronic respiratory failure with hypoxia Code(s): J96.21 - ACUTE AND CHRONIC RESPIRATORY FAILURE WITH HYPOXIA Status: Acute (11) ZOE (acute kidney injury) Code(s): N17.9 - ACUTE KIDNEY FAILURE, UNSPECIFIED Status: Acute (12) Sepsis Code(s): A41.9 - SEPSIS, UNSPECIFIED ORGANISM Status: Resolved Qualifiers: Sepsis type: sepsis due to unspecified organism Qualified Code(s): A41.9 - Sepsis, unspecified organism - Plan Plan: Sepsis 2/2 influenza A/H1, UTI, and possible PNA Febrile, tachycardic, tachypneic and hypoxic on admission. Normal WBCs. s/p azithro and rocephin, 2L NS, duoneb in the ER. UA positive for leukocyte esterase, bacteria - For UTI: rocephin x 2 days. Now on levoquin. Urine cx: klebsiella sensitive to abx. - For influenza: Flu swab positive for influenza A and H1; Continue tamiflu tx 75mg BID x 5 days - For PNA: on levoquin. Procal 0.18 -> 0.06. - Blood cx: NGTD - Continue to monitor VS. Continue to ween off BIpap as tolerated. - PT/OT consulted Acute on chronic COPD exacerbation 2/2 Influenza A/H1 infection Patient with increased sputum, cough, satting 70% on RA requiring BIPAP on admission. CXR with possible LLL infiltrate. - Will give methylprednisolone x 3 then convert to prednisone PO - Continue tamiflu - CXR with possible LLL infiltrate - started on levoquin - Monitor O2 sats: keep sats 88-92%. Ween off bipap as tolerated - Continue home breathing treatments. Duoneb Contreras. - Patient can likely be transitioned out of the IMCU later today if tolerating NC well ZOE, improved BUN/CR 27/1.54, above baseline per chart review on admission. - Will continue to monitor. Continue mIVF. Elevated Troponins Likely due to demand ischemia. EKG nml. Pt asymptomatic. - Trops have downtrended. DMII - aware, ACHS, mild SS. Home glargine re-started. Will adjust as needed. HTN - aware, continue home meds HLD - aware, continue meds Chronic back pain - aware, continue meds RA - aware, continue home meds. On DMARD and plaquenil. Movement disorder with deep brain stimulator - aware, ativan PRN for anxiety/agitation Diet: CC VTE: heparin PCP: Monica Dispo: pending clinical course; likely transfer to medical today Case discussed with Dr. Lynn Addendum - Attending - Attending Attestation Date/Time: 10/17/19 6035 I personally evaluated the patient and discussed the management with Dr. Vela I agree with the History, Examination, Assessment and Plan documented above with any addition or exceptions noted below. Ms. Mcguire is a 64yo F here with hx of COPD with influenza infection along with LLL PNA. Urine also found to be infected with klebsiella. She is currently being covered with levoquin and rocephin. Would like to consider adding vanc on for MRSA coverage and will consult with pulmonology. Patient currently off of bipap. Can transition out of ICU as she is satting well on NC now.
[2019-10-17] MEDS ORDERED: Insulin Glargine 45 UNITS in Pre-Filled Syringe 1 EACH SC SCH (09:00)
[2019-10-17] MEDS ORDERED: Insulin Glargine 90 UNITS in Pre-Filled Syringe 1 EACH SC SCH (09:00)
[2019-10-17] MEDS: Alogliptin 6.25 MG TAB PO SCH (10:23)
[2019-10-17] MEDS: Baclofen 10 MG TAB PO SCH ×3 (10:23→21:11)
[2019-10-17] MEDS: Losartan 25 MG TAB PO SCH (10:24)
[2019-10-17] MEDS: Hydroxychloroquine Sulfate 200 MG TAB PO SCH ×2 (10:24→21:11)
[2019-10-17] MEDS: cloNIDine 0.3 MG TAB PO SCH ×3 (10:24→21:31)
[2019-10-17] MEDS: Hydrochlorothiazide 25 MG TAB PO SCH (10:26)
[2019-10-17] MEDS: Montelukast Sodium 10 mg Tablet PO SCH (10:26)
[2019-10-17] MEDS: Ubidecarenone 50 MG CAP PO SCH (10:26)
[2019-10-17] MEDS: Gabapentin 300 MG CAP PO SCH ×2 (10:27→21:12)
[2019-10-17] MEDS: Amlodipine 10 MG TAB PO SCH (10:27)
[2019-10-17] MEDS: Ferrous Sulfate 325 MG TAB PO SCH (10:27)
[2019-10-17] MEDS: Atorvastatin Calcium 40 MG TAB PO SCH (10:27)
[2019-10-17] MEDS: Mirtazapine 15 MG TAB PO SCH (10:27)
[2019-10-17] MEDS: Docusate Calcium (SURFAK) 240 MG CAP PO SCH ×2 (10:28→21:31)
[2019-10-17] MEDS: hydrALAZINE 25 MG TAB PO SCH ×3 (10:28→21:11)
[2019-10-17] MEDS: Furosemide 40 MG TAB PO SCH ×2 (10:28→21:12)
[2019-10-17] MEDS: Oseltamivir 75 MG CAP PO SCH ×2 (10:28→21:12)
[2019-10-17] MEDS: Multivit, Therapeutic 1 TAB PO SCH (10:29)
[2019-10-17] MEDS: Heparin 5,000 UNITS/ML VIAL SC SCH ×3 (10:29→21:13)
[2019-10-17] MEDS: Potassium Chloride 20 MEQ TAB PO SCH (10:29)
[2019-10-17] MEDS ORDERED: predniSONE 20 MG TAB PO SCH (12:45)
[2019-10-17] MEDS ORDERED: cefTRIAXone\\ROCEPHIN 1 GM in Sodium Chloride 0.9% 100 ML IVPB SCH (14:00)
--- NOTE | 2019-10-17 17:31 | PRG ---
DATE OF SERVICE: 10/17/2019 INTERVAL HISTORY: The patient is doing outstanding from respiratory standpoint. Breathing comfortably on her ventilator. She has her home unit with her. She denies any current chest discomfort, nausea, or vomiting. Overall, she had a very good night and got good refreshing sleep. This morning, she wakes up, feeling like she is breathing quite well. PHYSICAL EXAMINATION: VITAL SIGNS: Afebrile, pulse 89, blood pressure 129/56, respirations 14, saturation 95%, currently on 3 L bled into home ventilator. GENERAL: The patient is awake and alert, in no apparent distress. LUNGS: Wonderful air entry with no prolonged expiratory phase or wheezing present. HEART: Normal rate. Regular. ABDOMEN: Soft, nontender, and nondistended. Bowel sounds are positive. MUSCULOSKELETAL: No cyanosis or clubbing. No pitting in bilateral lower extremities. NEUROLOGIC: Grossly nonfocal. LABORATORY DATA: WBC 8.4, hemoglobin 10.3, platelets 242,000. Creatinine 1.47, which is gently uptrending. Basic metabolic profile is otherwise unremarkable. Procalcitonin is unremarkable. Urinalysis is negative. Klebsiella pneumonia is growing on the urine culture. This is a pansensitive organism. Blood cultures x2, and C diff antigen and toxin are unremarkable. Influenza A is positive. ASSESSMENT: 1. [id number] hypoxic and hypercapnic respiratory failure. 2. Chronic obstructive pulmonary disease with acute exacerbation secondary to influenza A. 3. Community-acquired pneumonia, likely secondary to influenza A. 4. Obstructive sleep apnea. DISCUSSION AND PLAN: The patient is doing great from respiratory standpoint. As such, she can be transitioned to the medical unit. Pulmonary will continue to follow while the patient remains inhouse. Dr. Catalan will assume care on Sunday. We will continue supportive care including nebulized medications, steroids, and antibiotics. Job ID: [id number] [facility]
[2019-10-18] MEDS: HumaLOG 300 UNITS/3 ML VIAL SC PRN ×2 (05:16→13:38)
[2019-10-18] MEDS: Arformoterol 15 MCG/2 ML NEB NEB SCH (06:13)
[2019-10-18] MEDS: Budesonide 0.5 MG/2 ML NEB NEB SCH ×2 (06:16→19:41)
[2019-10-18] MEDS: Mometasone/Formoterol 120 PUFF INHALER INH SCH (06:17)
--- NOTE | 2019-10-18 07:06 | PDOC.FM ---
- Subjective Subjective: NAEO. Patient reports her breathing continues to improve. Did well on BiPap overnight. No chest pain, fever/chills, or N/V/D/C. - Objective MAR Reviewed: Yes Vital Signs & Weight: Vital Signs (12 hours) Temp Pulse Resp BP BP Pulse Ox 10/18/19 06:13 89 20 93 L 10/18/19 04:26 98 F 74 12 128/74 93 L 10/18/19 00:39 74 18 9 L 10/17/19 23:49 98.1 F 74 12 126/69 92 L 10/17/19 21:31 171/72 H 10/17/19 21:11 92 171/72 H 10/17/19 20:24 98.1 F 86 20 171/72 H 95 10/17/19 19:52 87 20 95 Weight Weight 99.79 kg Most Recent Monitor Data Heart Rate from ECG 88 NIBP 167/83 NIBP BP-Mean 111 Respiration from ECG 30 SpO2 94 I&O: 10/17/19 10/18/19 10/19/19 06:59 06:59 07:59 Intake Total 1621 1867 Output Total 400 1450 Balance 1221 417 Result Diagrams: 10/17/19 03:08 10/17/19 03:08 Phys Exam - Physical Examination Constitutional: NAD HEENT: moist MMs Neck: supple, full ROM Respiratory: no rales, no rhonchi, wheezing present Cardiovascular: RRR, no significant murmur Gastrointestinal: soft, non-tender, no distention Neurological: non-focal, moves all 4 limbs Psychiatric: normal affect, A&O x 3 Skin: no rash, normal turgor, cap refill <2 seconds Dx/Plan (1) Influenza Code(s): J11.1 - FLU DUE TO UNIDENTIFIED INFLUENZA VIRUS W OTH RESP MANIFEST Status: Acute (2) Acute respiratory failure with hypoxia Code(s): J96.01 - ACUTE RESPIRATORY FAILURE WITH HYPOXIA Status: Acute (3) COPD exacerbation Code(s): J44.1 - CHRONIC OBSTRUCTIVE PULMONARY DISEASE W (ACUTE) EXACERBATION Status: Acute (4) Normocytic anemia Code(s): D64.9 - ANEMIA, UNSPECIFIED Status: Chronic (5) UTI (urinary tract infection) Status: Acute Qualifiers: Urinary tract infection type: acute cystitis Hematuria presence: without hematuria Qualified Code(s): N30.00 - Acute cystitis without hematuria (6) Diabetes mellitus Code(s): E11.9 - TYPE 2 DIABETES MELLITUS WITHOUT COMPLICATIONS Status: Chronic Qualifiers: Diabetes mellitus type: type 2 Diabetes mellitus complication status: without complication (7) Hypertension Code(s): I10 - ESSENTIAL (PRIMARY) HYPERTENSION Status: Chronic Qualifiers: Hypertension type: essential hypertension Qualified Code(s): I10 - Essential (primary) hypertension (8) Rheumatoid arthritis Code(s): M06.9 - RHEUMATOID ARTHRITIS, UNSPECIFIED Status: Chronic (9) Community acquired pneumonia Code(s): J18.9 - PNEUMONIA, UNSPECIFIED ORGANISM Status: Suspected (10) DEION (obstructive sleep apnea) Code(s): G47.33 - OBSTRUCTIVE SLEEP APNEA (ADULT) (PEDIATRIC) Status: Chronic - Plan Plan: Sepsis 2/2 influenza A/H1, UTI, and possible PNA Febrile, tachycardic, tachypneic and hypoxic on admission. Normal WBC. s/p azithro and rocephin, 2L NS, duoneb in the ER. UA positive for leukocyte esterase, bacteria - For UTI: rocephin x 2 days. Now on levaquin. Urine cx: klebsiella sensitive to abx. - For influenza: Flu swab positive for influenza A and H1; Continue tamiflu tx 75mg BID x 5 days - For PNA: on levaquin. Procal 0.18 -> 0.06. - Blood cx: NGTD - Continue to monitor VS. Continue to ween off BiPap as tolerated. - PT/OT on board for recs for possible placement Acute on chronic COPD exacerbation 2/2 Influenza A/H1 infection Patient with increased sputum, cough, satting 70% on RA requiring BIPAP on admission. CXR with possible LLL infiltrate. - Will give methylprednisolone x 3 then convert to prednisone PO - Continue tamiflu - CXR with possible LLL infiltrate - started on levaquin - Monitor O2 sats: keep sats 88-92%. Wean off NC as tolerated - Continue home breathing treatments. Duoneb JENNA Q6H. ZOE, improved BUN/CR 27/1.54, above baseline per chart review on admission. - Will continue to monitor. Continue mIVF. Elevated Troponins Likely due to demand ischemia. EKG nml. Pt asymptomatic. - Trops have downtrended. DMII - aware, ACHS, mild SS. Home glargine re-started. Will adjust as needed. HTN - aware, continue home meds HLD - aware, continue meds Chronic back pain - aware, continue meds RA - aware, continue home meds. On DMARD and plaquenil. Movement disorder with deep brain stimulator - aware, ativan PRN for anxiety/agitation Diet: CC, HH VTE: heparin PCP: Monica Dispo: pending clinical course; CM on board for possible placement Case discussed with Dr. Castanon Addendum - Attending - Attending Attestation Date/Time: 10/18/19 3507 I personally evaluated the patient and discussed the management with Dr. Zee. I agree with the History, Examination, Assessment and Plan documented above with any addition or exceptions noted below. Patient reports feeling well. Breathing improved. She continues on treatment for Flu and PNA. Wean O2 as tolerated. Pulm on board. Therapy services to prevent deconditioning.
[2019-10-18] MEDS ORDERED: predniSONE 20 MG TAB PO SCH (09:00)
[2019-10-18] MEDS ORDERED: Insulin Glargine 55 UNITS in Pre-Filled Syringe 1 EACH SC SCH (09:00)
[2019-10-18 09:36] LABS: Anion Gap 13 mmol/L (10-20); BUN (Urea Nitrogen) 31 mg/dL (9.8-20.1); Calc. Creatinine Clearance 67 mL/min (70-130); Calcium 9.8 mg/dL (7.8-10.44); Carbon Dioxide 31 mmol/L (23-31); Chloride 100 mmol/L (98-107); Estimated GFR-MDRD 41; Glucose 224 mg/dL (80-115); Potassium 3.9 mmol/L (3.5-5.1); Sodium 140 mmol/L (136-145)
[2019-10-18] MEDS: Montelukast Sodium 10 mg Tablet PO SCH (10:18)
[2019-10-18] MEDS: Losartan 25 MG TAB PO SCH (10:18)
[2019-10-18] MEDS: Alogliptin 6.25 MG TAB PO SCH (10:19)
[2019-10-18] MEDS: Mirtazapine 15 MG TAB PO SCH (10:19)
[2019-10-18] MEDS: cloNIDine 0.3 MG TAB PO SCH ×3 (10:20→21:39)
[2019-10-18] MEDS: Gabapentin 300 MG CAP PO SCH ×2 (10:20→21:37)
[2019-10-18] MEDS: Multivit, Therapeutic 1 TAB PO SCH (10:21)
[2019-10-18] MEDS: hydrALAZINE 25 MG TAB PO SCH ×3 (10:21→21:38)
[2019-10-18] MEDS: Amlodipine 10 MG TAB PO SCH (10:21)
[2019-10-18] MEDS: predniSONE 20 MG TAB PO SCH (10:21)
[2019-10-18] MEDS: Docusate Calcium (SURFAK) 240 MG CAP PO SCH ×2 (10:22→21:41)
[2019-10-18] MEDS: Atorvastatin Calcium 40 MG TAB PO SCH (10:22)
[2019-10-18] MEDS: Potassium Chloride 20 MEQ TAB PO SCH (10:23)
[2019-10-18] MEDS: Furosemide 40 MG TAB PO SCH ×2 (10:23→21:38)
[2019-10-18] MEDS: Ferrous Sulfate 325 MG TAB PO SCH (10:23)
[2019-10-18] MEDS: Baclofen 10 MG TAB PO SCH ×3 (10:23→21:38)
[2019-10-18] MEDS: Oseltamivir 75 MG CAP PO SCH ×2 (10:23→21:38)
[2019-10-18] MEDS: Hydrochlorothiazide 25 MG TAB PO SCH (10:23)
[2019-10-18] MEDS: Hydroxychloroquine Sulfate 200 MG TAB PO SCH ×2 (10:23→21:38)
[2019-10-18] MEDS: Heparin 5,000 UNITS/ML VIAL SC SCH (10:24)
[2019-10-18] MEDS ORDERED: Albuterol Sulfate 2.5 mg/3 ml Neb NEB PRN (10:36)
--- NOTE | 2019-10-18 11:16 | PRG ---
DATE OF SERVICE: 10/18/2019 SUBJECTIVE: This morning, she is better, less short of breath, less cough. OBJECTIVE: VITAL SIGNS: Temperature 98, pulse 79, respiratory rate 22, saturations are 90% on 2 L, and blood pressure 136/71. CHEST: No wheezing or crackles. CARDIAC: Normal S1 and S2. No gallops. ABDOMEN: No masses. LABORATORY DATA: Creatinine 1.13. ASSESSMENT: Chronic obstructive pulmonary disease, respiratory failure, bronchitis, and influenza. PLAN: Home any time. Follow up with Dr. Cleaning. Job ID: [id number]
[2019-10-18] MEDS: Ubidecarenone 50 MG CAP PO SCH (11:30)
[2019-10-18] MEDS: Cefdinir 300 MG CAP PO SCH ×2 (11:30→21:37)
--- NOTE | 2019-10-18 11:30 | EKG ---
Test Reason : Blood Pressure : / mmHG Vent. Rate : 108 BPM Atrial Rate : 108 BPM P-R Int : 132 ms QRS Dur : 090 ms QT Int : 350 ms P-R-T Axes : 063 004 054 degrees QTc Int : 469 ms Sinus tachycardia Otherwise normal ECG Confirmed by JESSIE PIÑA DO ([id number]), health editor LAURA BRITTON ([id number]) on 10/18/2019 11:29:47 AM Referred By: Confirmed By:JESSIE PIÑA DO
[2019-10-18] MEDS ORDERED: HumaLOG 300 UNITS/3 ML VIAL SC SCH (16:45)
[2019-10-18] MEDS ORDERED: PRE FILLED SC SCH (21:00)
[2019-10-18] MEDS ORDERED: Enoxaparin Sodium 40 MG/0.4 ML SYRINGE SC SCH (21:00)
[2019-10-18] MEDS ORDERED: INSULIN GLARGINE SC SCH (21:00)
[2019-10-18] MEDS ORDERED: Insulin Glargine 75 UNITS in Pre-Filled Syringe 1 EACH SC SCH (21:00)
[2019-10-18] MEDS ORDERED: Insulin Glargine 95 UNITS in Pre-Filled Syringe 1 EACH SC SCH (21:00)
[2019-10-18] MEDS ORDERED: Insulin Glargine 45 UNITS in Pre-Filled Syringe 1 EACH SC SCH (21:00)
[2019-10-18] MEDS ORDERED: Insulin Glargine 50 UNITS in Pre-Filled Syringe 1 EACH SC SCH (21:00)
[2019-10-19] MEDS: HumaLOG 300 UNITS/3 ML VIAL SC PRN ×3 (06:18→16:52)
[2019-10-19 06:23] LABS: Anion Gap 13 mmol/L (10-20); BUN (Urea Nitrogen) 33 mg/dL (9.8-20.1); Calc. Creatinine Clearance 66 mL/min (70-130); Calcium 9.5 mg/dL (7.8-10.44); Carbon Dioxide 34 mmol/L (23-31); Chloride 100 mmol/L (98-107); Estimated GFR-MDRD 40; Glucose 169 mg/dL (80-115); Potassium 3.7 mmol/L (3.5-5.1); Sodium 143 mmol/L (136-145)
--- NOTE | 2019-10-19 06:39 | PDOC.FM ---
- Subjective Subjective: Patient remained stable in home Bipap overnight. NEHEMIAS. Reports she feels well this AM. Denies any fever/chills, N/V/D/C. States breathing continues to improve. - Objective MAR Reviewed: Yes Vital Signs & Weight: Vital Signs (12 hours) Temp Pulse Resp BP BP Pulse Ox 10/19/19 04:43 93 L 10/19/19 04:00 98.4 F 70 20 129/57 L 91 L 10/19/19 01:25 69 16 92 L 10/19/19 00:00 98.8 F 68 20 147/79 H 92 L 10/18/19 21:39 144/75 H 10/18/19 21:38 82 144/75 H 10/18/19 20:00 98.2 F 82 20 144/75 H 93 L 10/18/19 19:40 86 20 95 Weight Weight 99.79 kg Most Recent Monitor Data Heart Rate from ECG 88 NIBP 167/83 NIBP BP-Mean 111 Respiration from ECG 30 SpO2 94 I&O: 10/17/19 10/18/19 10/19/19 06:59 06:59 07:59 Intake Total 1621 1867 720 Output Total 400 1450 Balance 1221 417 720 Result Diagrams: 10/17/19 03:08 10/19/19 05:19 Phys Exam - Physical Examination Constitutional: NAD HEENT: moist MMs Neck: supple, full ROM Respiratory: no rales, no rhonchi, wheezing present mild expiratory wheezing noted in B/L upper lung miranda Cardiovascular: RRR, no significant murmur Gastrointestinal: soft, non-tender Neurological: non-focal, moves all 4 limbs Psychiatric: normal affect, A&O x 3 Skin: no rash, normal turgor Dx/Plan (1) Influenza Code(s): J11.1 - FLU DUE TO UNIDENTIFIED INFLUENZA VIRUS W OTH RESP MANIFEST Status: Acute (2) Acute respiratory failure with hypoxia Code(s): J96.01 - ACUTE RESPIRATORY FAILURE WITH HYPOXIA Status: Acute (3) COPD exacerbation Code(s): J44.1 - CHRONIC OBSTRUCTIVE PULMONARY DISEASE W (ACUTE) EXACERBATION Status: Acute (4) Normocytic anemia Code(s): D64.9 - ANEMIA, UNSPECIFIED Status: Chronic (5) UTI (urinary tract infection) Status: Acute Qualifiers: Urinary tract infection type: acute cystitis Hematuria presence: without hematuria Qualified Code(s): N30.00 - Acute cystitis without hematuria (6) Diabetes mellitus Code(s): E11.9 - TYPE 2 DIABETES MELLITUS WITHOUT COMPLICATIONS Status: Chronic Qualifiers: Diabetes mellitus type: type 2 Diabetes mellitus complication status: without complication (7) Hypertension Code(s): I10 - ESSENTIAL (PRIMARY) HYPERTENSION Status: Chronic Qualifiers: Hypertension type: essential hypertension Qualified Code(s): I10 - Essential (primary) hypertension (8) Rheumatoid arthritis Code(s): M06.9 - RHEUMATOID ARTHRITIS, UNSPECIFIED Status: Chronic (9) Community acquired pneumonia Code(s): J18.9 - PNEUMONIA, UNSPECIFIED ORGANISM Status: Suspected (10) DEION (obstructive sleep apnea) Code(s): G47.33 - OBSTRUCTIVE SLEEP APNEA (ADULT) (PEDIATRIC) Status: Chronic - Plan Plan: Sepsis 2/2 influenza A/H1, UTI, and possible PNA Febrile, tachycardic, tachypneic and hypoxic on admission. Normal WBC. s/p azithro and rocephin, 2L NS, duoneb in the ER. UA positive for leukocyte esterase, bacteria - For UTI: rocephin x 2 days. Now on levaquin & omnicef. Urine cx: klebsiella sensitive to all abx. - For influenza: Flu swab positive for influenza A and H1; Continue tamiflu tx 75mg BID x 5 days - For PNA: on levaquin & rocephin. Procal 0.18 -> 0.06. - Blood cx: NGTD - Continue to monitor VS. Continue to wean off NC as tolerated. - PT/OT on board & recommned home w/ support. Acute on chronic COPD exacerbation 2/2 Influenza A/H1 infection, improving Still requiring 2L via NC during the day to maintain sats. Will do a walking O2 trial today to make sure patient is safe to go home w/o O2 as she was denied yesterday in the setting of acute illness. - Will give methylprednisolone x 3 then convert to prednisone PO - Continue tamiflu - CXR with possible LLL infiltrate - started on levaquin & transitioned form rocephin to omnicef yesterday for typical PNA pathogens and complicated UTI. - Monitor O2 sats: keep sats 88-92%. Wean off NC as tolerated - Continue home breathing treatments. Duoneb JENNA Q6H. ZOE, improved BUN/CR 27/1.54, above baseline per chart review on admission. - Will continue to monitor. Elevated Troponins Likely due to demand ischemia. EKG nml. Pt asymptomatic. - Trops have downtrended. DMII - aware, ACHS, aggressive SSI. Home glargine re-started. Will adjust as needed. HTN - aware, continue home meds HLD - aware, continue meds Chronic back pain - aware, continue meds RA - aware, continue home meds. On DMARD and plaquenil. Movement disorder with deep brain stimulator - aware, ativan PRN for anxiety/agitation Diet: CC, HH VTE: Lovenox Abx: levaquin & omnicef IVFs: SL PCP: Monica Dispo: pending clinical course; CM on board for possible placement Case discussed with Dr. Castanon Addendum - Attending - Attending Attestation Date/Time: 10/19/19 [id number] I personally evaluated the patient and discussed the management with Dr. Zee. I agree with the History, Examination, Assessment and Plan documented above with any addition or exceptions noted below.
[2019-10-19] MEDS: Budesonide 0.5 MG/2 ML NEB NEB SCH (06:48)
[2019-10-19 07:45] VITALS: BMI 38.4
[2019-10-19] MEDS: cloNIDine 0.3 MG TAB PO SCH ×2 (08:22→14:01)
[2019-10-19] MEDS: Cefdinir 300 MG CAP PO SCH (08:23)
[2019-10-19] MEDS: Hydrochlorothiazide 25 MG TAB PO SCH (08:23)
[2019-10-19] MEDS: Hydroxychloroquine Sulfate 200 MG TAB PO SCH (08:23)
[2019-10-19] MEDS: Baclofen 10 MG TAB PO SCH ×2 (08:23→14:01)
[2019-10-19] MEDS: hydrALAZINE 25 MG TAB PO SCH ×2 (08:24→14:01)
[2019-10-19] MEDS: Alogliptin 6.25 MG TAB PO SCH (08:24)
[2019-10-19] MEDS: Potassium Chloride 20 MEQ TAB PO SCH (08:24)
[2019-10-19] MEDS: Montelukast Sodium 10 mg Tablet PO SCH (08:24)
[2019-10-19] MEDS: Atorvastatin Calcium 40 MG TAB PO SCH (08:24)
[2019-10-19] MEDS: predniSONE 20 MG TAB PO SCH (08:25)
[2019-10-19] MEDS: Amlodipine 10 MG TAB PO SCH (08:25)
[2019-10-19] MEDS: Multivit, Therapeutic 1 TAB PO SCH (08:25)
[2019-10-19] MEDS: Oseltamivir 75 MG CAP PO SCH (08:25)
[2019-10-19] MEDS: Ferrous Sulfate 325 MG TAB PO SCH (08:25)
[2019-10-19] MEDS: Gabapentin 300 MG CAP PO SCH (08:25)
[2019-10-19] MEDS: Mirtazapine 15 MG TAB PO SCH (08:25)
[2019-10-19] MEDS: Furosemide 40 MG TAB PO SCH (08:41)
[2019-10-19] MEDS: Losartan 25 MG TAB PO SCH (08:41)
[2019-10-19] MEDS: Docusate Calcium (SURFAK) 240 MG CAP PO SCH (09:28)
[2019-10-19] MEDS: Ubidecarenone 50 MG CAP PO SCH (09:28)
--- NOTE | 2019-10-19 11:46 | PRG ---
DATE OF SERVICE: 10/19/2019 SUBJECTIVE: This morning, she is better, less short of breath. OBJECTIVE: VITAL SIGNS: Temperature 97, pulse 77, blood pressure 172/76, sats on 2 L. CHEST: No wheezing or crackles. CARDIAC: Normal S1, S2. No gallops. ABDOMEN: No masses. LABORATORY DATA: Creatinine 1.33. ASSESSMENT: bronchitis, mild azotemia. PLAN: Home any time. Follow up with Dr. Cleaning. Job ID: [id number]
[2019-10-19 16:25] VITALS: BP 168/74; TEMP 98.3
[2019-10-19] MEDS ORDERED: Insulin Glargine 75 UNITS in Pre-Filled Syringe 1 EACH SC SCH (21:00)
--- NOTE | 2019-10-21 01:08 | DIS ---
DATE OF ADMISSION: 10/15/2019 DATE OF DISCHARGE: 10/19/2019 RESIDENT: Alisia Zee MD ADMITTING ATTENDING: Romain Mas MD DISCHARGE ATTENDING: Giovani Castanon MD CONSULTS: Pulmonology, Dr. Elias Cleaning. PROCEDURES: Chest x-ray on 10/15/2019, which was notable for cardiomegaly with some chronic appearing lung change and a left lower lobe infiltrative process. PRIMARY DIAGNOSES: 1. Acute hypoxic respiratory failure secondary to chronic obstructive pulmonary disease exacerbation from influenza infection and community-acquired pneumonia. 2. Sepsis secondary to influenza, community-acquired pneumonia, and urinary tract infection. 3. Acute kidney injury secondary to problem #2. SECONDARY DIAGNOSES: 1. Chronic obstructive pulmonary disease. 2. Obstructive sleep apnea, on BiPAP at bedtime. 3. Insulin-dependent diabetes mellitus 2. 4. Hypertension. 5. Hyperlipidemia. 6. Chronic back pain. 7. Anxiety and depression. DISCHARGE MEDICATIONS: 1. Multivitamin 1 tablet p.o. daily. 2. Remeron 50 mg p.o. daily. 3. Norvasc 10 mg p.o. daily. 4. Venlafaxine 75 mg p.o. daily. 5. Spiriva 18 mcg inhaled daily. 6. Singulair 10 mg p.o. daily. 7. Losartan potassium 100 mg p.o. daily. 8. Atorvastatin 80 mg p.o. daily. 9. Clonidine 0.3 mg p.o. t.i.d. 10. CoQ10 100 mg capsule one tablet p.o. daily. 11. Plaquenil 200 mg tablet one tablet p.o. b.i.d. 12. Ferrous sulfate 325 mg p.o. daily. 13. Hydrochlorothiazide 25 mg p.o. daily. 14. Symbicort 160/4.5, one puff inhaled daily. 15. Trulicity 0.5 mg per 0.5 mL pen injector 1.5 mg subcu q.7 days. 16. Abatacept 250 mg vial 750 mg IV every 7 days. 17. Brovana 15 mcg per 2 mL nebulized 15 mcg nebulized b.i.d. 18. ProAir two puffs inhaled q.4 hours p.r.n. 19. Tramadol 100 mg p.o. q.4 hours p.r.n. 20. Baclofen 10 mg p.o. t.i.d. 21. Potassium chloride 20 mEq p.o. q.a.m. with meals. 22. Lasix 40 mg p.o. b.i.d. 23. Cholecalciferol 3000 units p.o. daily. 24. Hydralazine 50 mg p.o. t.i.d. 25. Budesonide 0.5 mg per 2 mL one ampule inhaled b.i.d. 26. Januvia 100 mg tabs 50 mg p.o. daily. 27. Acetaminophen 650 mg p.o. q.4 hours p.r.n. 28. Gabapentin 600 mg p.o. b.i.d. 29. Levaquin 750 mg p.o. every two days #5 tabs. 30. Tamiflu 75 mg p.o. b.i.d. #3 capsules. 31. MiraLAX 17 g p.o. daily p.r.n. 32. Prednisone 20 mg tabs 40 mg p.o. daily #2 tabs. 33. Toujeo 300 units/mL insulin Pen Injector 150 units subcu at bedtime. DISCONTINUED MEDICATIONS: 1. Toujeo 300 units/mL, 100 units subcu daily. 2. Prednisone 20 mg tabs, 10 mg p.o. q.a.m. with meals. 3. Gabapentin 600 mg one capsule p.o. q.i.d. HOSPITAL COURSE: The patient is a 64-year-old female with a past medical history notable for COPD, DEION on BiPAP at bedtime, rheumatoid arthritis, and insulin-dependent diabetes mellitus 2, who presented to the emergency department with a chief complaint of feeling ill with associated fever, cough, congestion, and malaise for the last 2 days at home. On the day of presentation, the patient reported fever up to 103.4 at home and was also hypoxic into the 70s on room air per a home O2 saturation monitor. She therefore came to the ER for further evaluation and on arrival was noted to be febrile up to 101.4, hypoxic into the 80s and tachycardic with a pulse of 101. She was therefore placed on oxygen via nasal cannula, requiring up to 4 L to maintain adequate saturations and a workup including chest x-ray, flu swab, and blood work was initiated. Her chest x-ray was notable for a left lower lobe infiltrate and flu swab was initially indeterminate, but ultimately came back positive for influenza A and H1. Her lab work was notable for a normal white blood cell count, but her ABG did show a degree of respiratory acidosis with pCO2 of 54.2. Her BUN and creatinine were also elevated at 27 and 1.54 with an EGFR of 34. Lastly, her urinalysis was notable for 500 of leukocyte esterase, 21 to 50 white blood cells, and 3+ bacteria. She was therefore determined to be septic secondary to influenza, community-acquired pneumonia and UTI and was given a DuoNeb treatment, IV azithromycin and Rocephin and 2 L of normal saline. Ultimately, the patient was placed on BiPAP prior to leaving the emergency department and therefore admitted to the IMCU for close monitoring overnight. Regarding her acute hypoxic respiratory failure from community-acquired pneumonia and the flu, the patient required BiPAP over the next 48 hours and was monitored closely in IMCU until she was eventually weaned to nasal cannula for respiratory support. She was started on Tamiflu and continued on antibiotics, which were eventually broadened to also include Levaquin given her immunocompromised status due to her rheumatoid arthritis medications. She was continued on IV antibiotics until she was tolerating p.o. and off BiPAP and stable on the medical floor, where she was transitioned to Omnicef and Po levaquin. She was also continued on steroids and scheduled DuoNeb w/ PRN albuterol treatments. By the date of discharge, the patient was still requiring a small amount of support to maintain adequate saturations with minimal activity. Case Management therefore assisted the patient in getting home oxygen to have available at home prior to her discharge. She was instructed to follow up closely with her loop sewer, Dr. Rojas Catalan as well as her PCP, Dr. Deanne Dye for close follow-up and monitoring. Regarding her sepsis secondary to flu, CAP, and UTI, the patient was continued on antibiotics as noted above, and eventually discharged on Tamiflu and Levaquin to cover both her pneumonia and UTI, which was noted to be pansensitive, to be continued for 5 days with every other day dosing given her renal function on discharge. Regarding her ZOE, the patient's renal function was noted to be significantly lower than her baseline on admission with the GFR of 34. She was given IV fluids over the first evening, especially while on BiPAP and eventually encouraged to increase her p.o. fluid intake to help correct her kidney dysfunction. All medications were renally dosed and she was discharged on renally dosed medications as her renal function was still slightly decreased with the EGFR of 40 upon discharge. She will need close monitoring of her renal function with her PCP upon discharge. DISPOSITION: Stable. DISCHARGE INSTRUCTIONS: 1. Location: Home. 2. Diet: Consistent carb, heart healthy, low-sodium diet. 3. Activity: Activity as tolerated. 4. Followup: The patient was instructed to follow up with her PCP, Dr. Deanne Dye within 1 week of discharge. F/u with her loop sewer, Dr. Rojas Catalan, within 2 to 4 weeks of discharge and [facility] to coordinate a time for her home oxygen concentrator to be delivered to her at home. Job ID: [id number] MTDD
== END 2019-10-19 17:24 | disposition home or self-care (01) | DRG 871 ==
LOC: ERS 13:17 → ERHOLD 16:14 → IMCU/EMU 19:05 → T4-A 10-17 18:41
PROVIDERS: ADMIT Family Medicine; ATTEND Family Medicine
PROC: 5A09357 Assistance with Respiratory Ventilation, Less than 24 Consecutive Hours, Continuous Positive Airway Pressure (ICD-10-PCS; principal; 2019-10-15)
DX: A41.89 Other specified sepsis (principal); J10.00 Influenza due to other identified influenza virus with unspecified type of pneumonia; J96.21 Acute and chronic respiratory failure with hypoxia; J96.22 Acute and chronic respiratory failure with hypercapnia; J44.1 Chronic obstructive pulmonary disease with (acute) exacerbation; J44.0 Chronic obstructive pulmonary disease with (acute) lower respiratory infection; N17.9 Acute kidney failure, unspecified; N30.00 Acute cystitis without hematuria; G25.9 Extrapyramidal and movement disorder, unspecified; I24.8 Other forms of acute ischemic heart disease; R65.20 Severe sepsis without septic shock; G47.33 Obstructive sleep apnea (adult) (pediatric); E11.9 Type 2 diabetes mellitus without complications; I10 Essential (primary) hypertension; E78.5 Hyperlipidemia, unspecified; G89.29 Other chronic pain; M54.9 Dorsalgia, unspecified; F41.9 Anxiety disorder, unspecified; F32.9 Major depressive disorder, single episode, unspecified; D64.9 Anemia, unspecified; E66.9 Obesity, unspecified; Z96.89 Presence of other specified functional implants; M06.9 Rheumatoid arthritis, unspecified; B96.1 Klebsiella pneumoniae [K. pneumoniae] as the cause of diseases classified elsewhere; Z79.899 Other long term (current) drug therapy; Z79.51 Long term (current) use of inhaled steroids; Z79.4 Long term (current) use of insulin; Z79.52 Long term (current) use of systemic steroids; Z90.49 Acquired absence of other specified parts of digestive tract; Z28.82 Immunization not carried out because of caregiver refusal; Z68.38 Body mass index [BMI] 38.0-38.9, adult; Z87.891 Personal history of nicotine dependence
CPT/HCPCS: 36415; 36416; 71046; 80048; 80053; 81003; 81015; 82805; 83036; 83605; 83880; 84145; 84484; 85025; 87040; 87077; 87086; 87186; 87324; 87449; 87631; 87804; 93005; 93010; 94640; 94660; 96361; 96365; 96367; J0456; J0696; J1644; J1650; J1815; J1956; J2060; J2405; J2765; J2930; J3490; J7512; J7620; J7626; Q0162

== ENCOUNTER 2020-02-04 11:19 | Outpatient (CLI) | payer MEDICARE, BC ==
--- NOTE | 2020-02-04 12:45 | MMO ---
Bilateral MAMMO Bilat Screen [facility]. CLINICAL HISTORY: Patient is 64 years old and is seen for screening. The patient has no family history of breast cancer. The patient has no personal history of cancer. VIEWS: The views performed were: bilateral craniocaudal with tomosynthesis and bilateral mediolateral oblique with tomosynthesis. FILMS COMPARED: The present examination has been compared to prior imaging studies performed at [facility] on 10/22/2015, 11/29/2016, 12/19/2017 and 12/27/2018. This study has been interpreted with the assistance of computer-aided detection. MAMMOGRAM FINDINGS: There are stable benign appearing calcifications seen in both breasts. There are also vascular calcifications. There are no suspicious masses, suspicious calcifications, or new areas of architectural distortion. IMPRESSION: THERE IS NO MAMMOGRAPHIC EVIDENCE OF MALIGNANCY. A ROUTINE FOLLOW-UP MAMMOGRAM IN 1 YEAR IS RECOMMENDED. THE RESULTS OF THIS EXAM WERE SENT TO THE PATIENT. ACR BI-RADS Category 2 - Benign finding MAMMOGRAPHY NOTE: 1. A negative mammogram report should not delay a biopsy if a dominant of clinically suspicious mass is present. 2. Approximately 10% to 15% of breast cancers are not detected by mammography. 3. Adenosis and dense breasts may obscure an underlying neoplasm. Reported by: CEASAR LAUREN MD Electonically Signed: [id number]
== END 2020-02-04 11:20 | disposition home or self-care (01) ==
LOC: BICMAMMO 11:19
PROVIDERS: ATTEND Family Medicine
DX: Z12.31 Encounter for screening mammogram for malignant neoplasm of breast (principal)
CPT/HCPCS: 77063; 77067

== ENCOUNTER 2020-02-04 11:58 | Outpatient (CLI) | payer MEDICARE, BC ==
--- NOTE | 2020-02-04 14:38 | ULT ---
RENAL ULTRASOUND HISTORY: Chronic kidney disease COMPARISON: CTA of the abdomen dated January 01, 2014 FINDINGS: Right Kidney: Size: 11.4 x 5.1 x 5.4 cm. Right renal cortical thickness was 2 cm. Abnormality: There is a 1.6 cm cyst involving the lower pole of the right kidney. Left Kidney: Size: Left kidney measures 11.4 x 6.9 x 6.5 cm. The left renal cortical thickness was 1.3 cm. Abnormality: Normal cortical echotexture. No hydronephrosis Urinary bladder: The bladder measured 8.4 x 7.6 x 6.2 cm given estimated prevoid bladder volume of 20 8 cc. IMPRESSION: 1. No solid renal lesion or hydronephrosis demonstrated. 2. Small right renal cyst.
== END 2020-02-04 11:59 | disposition home or self-care (01) ==
LOC: BICULT 11:58
PROVIDERS: ATTEND Internal Medicine Nephrology
DX: N18.3 Chronic kidney disease, stage 3 (moderate) (principal); N28.1 Cyst of kidney, acquired
CPT/HCPCS: 76770

== ENCOUNTER 2020-06-15 10:54 | Outpatient (CLI) | payer MEDICARE, BC ==
--- NOTE | 2020-06-15 12:20 | RAD ---
RADIOGRAPH CHEST 2 VIEWS: Date: 06/15/2020 Time: 1123 HOURS HISTORY: 64-year-old female with dyspnea. COMPARISON: 10/15/2019. FINDINGS: There is either borderline or mild cardiomegaly. There is slight prominence of pulmonary vasculature. No consolidation or sandy pulmonary alveolar edema. No pleural effusion or pneumothorax. There is a left-sided generator with leads ascending the left neck. There is no interval change overall. IMPRESSION: 1. Borderline cardiomegaly without sandy pulmonary alveolar edema. 2. Findings are similar to 10/15/2019. JN [] POS: [facility]
== END 2020-06-15 10:55 | disposition home or self-care (01) ==
LOC: BICRAD 10:54
PROVIDERS: ATTEND Internal Medicine Critical Care Medicine
DX: R06.00 Dyspnea, unspecified (principal); I51.7 Cardiomegaly
CPT/HCPCS: 36415; 71046; 80053; 80061; 84443

== ENCOUNTER 2020-08-16 22:44 | Inpatient (IN) | payer MEDICARE, BC ==
[~2020-08-16 22:44] MED LIST: PROPOFOL 200 MG/20 ML VIAL ONE; Rocuronium Bromide 10 MG/ML (10ML VIAL) ONE
[2020-08-16] MEDS ORDERED: Acetaminophen 500 MG TAB ONE (22:54)
[2020-08-16] MEDS ORDERED: Ibuprofen 800 MG TAB ONE (22:54)
[2020-08-16] MEDS ORDERED: Magnesium 2 GM/50 ML BAG (IN WATER) ONE (22:59)
[2020-08-16] MEDS ORDERED: Dexamethasone 10 MG/ML VIAL ONE (22:59)
[2020-08-16 23:25] LABS: Actual Bicarbonate (HCO3a) 24.4 mEq/L (22-28); Analyzer IN Cardio ER; Base Excess (BEa) -0.1 mEq/L (-2.0 to +3.0); CO2 Tension 39.4 mmHg (35.0-45.0); Calcium, Ionized (arterial) 1.12 mmol/L (1.12-1.30); Carboxyhemoglobin (COHb) 0.2 gm% (0.0-3.0); Hemoglobin (Hb) 9.7 g/dL (12.0-16.0); O2 Tension (PaO2), arterial 78.5 mmHg (> 80.0); Potassium - ABG Lab 4.44 mmol/L (3.70-5.30); pH, Arterial 7.41 (7.35-7.45)
[2020-08-16 23:31] LABS: #Lymphocytes 1.9 thou/uL (1.20-3.40); #Monocytes 0.6 thou/uL (0.11-0.59); #Neutrophils 4.9 thou/uL (1.40-6.50); %Basophils 0.2 % (0.0-1.0); %Eosinophils 0.1 % (0.0-10.0); %Lymphocytes 25.8 % (21.0-51.0); %Monocytes 7.5 % (0.0-10.0); %Neutrophils 66.5 % (42.0-75.0); Hemoglobin 9.5 g/dL (12.0-16.0); Mean Corpuscular HGB CONC 33.8 g/dL (32.0-36.0); Mean Corpuscular Hemoglobin 30.1 pg (27.0-31.0); Mean Corpuscular Volume 88.9 fL (78.0-98.0); Mean Platelet Volume 8.1 fL (7.4-10.4); Platelet Count 228 thou/uL (130-400); Red Blood Cell (RBC) Count 3.15 mill/uL (4.20-5.40); White Blood Cell (WBC) Count 7.3 thou/uL (4.8-10.8)
[2020-08-16] MEDS ORDERED: Cefepime 2 GM VIAL ONE (23:41)
[2020-08-16] MEDS ORDERED: Vancomycin 1 GM/200 ML BAG ONE (23:41)
[2020-08-16 23:51] LABS: ALT (SGPT) 37 U/L (8-55); AST (SGOT) 30 U/L (5-34); Albumin 3.5 g/dL (3.4-4.8); Alkaline Phosphatase 71 U/L (40-110); Anion Gap 17 mmol/L (10-20); BUN (Urea Nitrogen) 41 mg/dL (9.8-20.1); Bilirubin, Total 0.3 mg/dL (0.2-1.2); Calc. Creatinine Clearance 0 mL/min (70-130); Calcium 8.6 mg/dL (7.8-10.44); Carbon Dioxide 28 mmol/L (23-31); Chloride 99 mmol/L (98-107); Globulin 2.7 g/dL (2.4-3.5); Glucose 324 mg/dL (80-115); Potassium 4.7 mmol/L (3.5-5.1); Protein, Total 6.2 g/dL (6.0-8.3); Sodium 139 mmol/L (136-145)
[2020-08-17 00:16] LABS: INR-International Normal Ratio 0.9; Prothrombin Time 12.7 sec (12.0-14.7)
[2020-08-17 00:22] LABS: PTT 38.8 sec (22.9-36.1)
[2020-08-17 00:29] LABS: Puncture Site RBA
[2020-08-17] MEDS ORDERED: Ondansetron PF 4 MG/2 ML Vial IVP PRN (00:51)
[2020-08-17] MEDS ORDERED: Dextrose 5% in Water 1,000 ML IV PRN (01:11)
[2020-08-17] MEDS ORDERED: Dextrose 50% Abboject 50 ML SYRINGE SLOW IVP PRN (01:11)
[2020-08-17] MEDS ORDERED: traMADol HCl 50 MG TAB PO PRN (01:32)
[2020-08-17 02:07] LABS: #Lymphocytes 1.4 thou/uL (1.20-3.40); #Monocytes 0.4 thou/uL (0.11-0.59); #Neutrophils 5.8 thou/uL (1.40-6.50); %Basophils 0.1 % (0.0-1.0); %Eosinophils 0.1 % (0.0-10.0); %Lymphocytes 18.5 % (21.0-51.0); %Monocytes 5.7 % (0.0-10.0); %Neutrophils 75.6 % (42.0-75.0); Hemoglobin 8.9 g/dL (12.0-16.0); Mean Corpuscular Hemoglobin 30.5 pg (27.0-31.0); Mean Corpuscular Volume 89.6 fL (78.0-98.0); Mean Platelet Volume 7.7 fL (7.4-10.4); Platelet Count 205 thou/uL (130-400); RBC Distribution Width 14.9 % (11.5-14.5); Red Blood Cell (RBC) Count 2.93 mill/uL (4.20-5.40); White Blood Cell (WBC) Count 7.7 thou/uL (4.8-10.8)
[2020-08-17 02:16] VITALS: BMI 39.2
[2020-08-17 02:39] LABS: ALT (SGPT) 39 U/L (8-55); AST (SGOT) 37 U/L (5-34); Albumin 3.3 g/dL (3.4-4.8); Alkaline Phosphatase 67 U/L (40-110); Anion Gap 19 mmol/L (10-20); BUN (Urea Nitrogen) 40 mg/dL (9.8-20.1); Bilirubin, Total 0.2 mg/dL (0.2-1.2); Calc. Creatinine Clearance 28 mL/min (70-130); Calcium 8.1 mg/dL (7.8-10.44); Carbon Dioxide 23 mmol/L (23-31); Chloride 102 mmol/L (98-107); Globulin 2.6 g/dL (2.4-3.5); Glucose 277 mg/dL (80-115); Potassium 4.6 mmol/L (3.5-5.1); Protein, Total 5.9 g/dL (6.0-8.3); Sodium 139 mmol/L (136-145)
[2020-08-17 02:43] LABS: Troponin I 0.044 ng/mL (< 0.028)
[2020-08-17 02:58] LABS: Actual Bicarbonate (HCO3a) 24.9 mEq/L (22-28); Analyzer IN Cardio ER; Base Excess (BEa) -1.1 mEq/L (-2.0 to +3.0); CO2 Tension 47.5 mmHg (35.0-45.0); Calcium, Ionized (arterial) 1.11 mmol/L (1.12-1.30); Carboxyhemoglobin (COHb) 0.2 gm% (0.0-3.0); Hemoglobin (Hb) 9.5 g/dL (12.0-16.0); O2 Tension (PaO2), arterial 72.3 mmHg (> 80.0); pH, Arterial 7.34 (7.35-7.45)
[2020-08-17 02:59] LABS: Puncture Site RRA
[2020-08-17] MEDS ORDERED: PROVENTIL INHALER 6.7 G (200 INHALATIONS) INH PRN (03:00)
[2020-08-17 03:01] LABS: ALV-art Gradient 296.125 mmHg (0-20)
[2020-08-17] MEDS: Sodium Chloride 0.9% 1,000 ML IV SCH ×3 (03:15→15:20)
[2020-08-17 03:49] LABS: Bacteria/HPF None Seen HPF (None Seen); Bilirubin Negative (Negative); Blood, Urine Negative (Negative); Clarity Clear (Clear); Glucose, Urine (Dipstick) Normal (Negative); Ketone, Urine Negative (Negative); Leukocyte Negative Leu/uL (Negative); Nitrite Negative (Negative); Protein, Urine (Dipstick) 30 mg/dL (Neg-Trace); RBC/HPF None Seen HPF (0-3); Specific Gravity, Urine 1.024 (1.002-1.036); Squamous Epithelial 0-3 HPF (0-3); Urobilinogen Normal mg/dL (Less than 2); WBC/HPF 0-3 HPF (0-3)
[2020-08-17] MEDS ORDERED: Norepinephrine 8 MG/0.9% NS 250 ML IVPB SCH (04:45)
[2020-08-17 05:23] LABS: Troponin I 0.038 ng/mL (< 0.028)
[2020-08-17] MEDS ORDERED: Vancomycin 1 GM in Premix Bag 1 BAG IVPB SCH (06:00)
[2020-08-17] MEDS ORDERED: Vancomycin 1 GM/200 ML BAG ONE (07:21)
[2020-08-17] MEDS: Ipratropium Bromide 2.5 ml Neb NEB SCH ×3 (07:51→21:44)
[2020-08-17] MEDS ORDERED: Amlodipine 10 MG TAB PO SCH (09:00)
[2020-08-17] MEDS ORDERED: Non-Formulary Item 1 EACH (Budesonide/Glycopyr/Formoterol [Breztri Aerosphere Inhaler] 10 IH SCH (09:00)
[2020-08-17] MEDS ORDERED: Carvedilol 6.25 MG TAB PO SCH (09:00)
[2020-08-17] MEDS ORDERED: cloNIDine 0.3 MG TAB PO SCH (09:00)
[2020-08-17] MEDS ORDERED: hydrALAZINE 25 MG TAB PO SCH (09:00)
[2020-08-17] MEDS ORDERED: Dexamethasone Sod Phosphate 6 MG in Sodium Chloride 0.9% 50 ML IVPB SCH ×2 (09:45→11:00)
[2020-08-17] MEDS ORDERED: Lorazepam 2 MG/ML VIAL SLOW IVP SCH (11:05)
[2020-08-17] MEDS: Montelukast Sodium 10 mg Tablet PO SCH (11:36)
[2020-08-17] MEDS: Hydroxychloroquine Sulfate 200 MG TAB PO SCH ×2 (11:36→23:39)
[2020-08-17] MEDS: Cholecalciferol 1,000 UNITS (25 MCG) TAB PO SCH (11:39)
[2020-08-17] MEDS: Ferrous Sulfate 325 MG TAB PO SCH (11:40)
[2020-08-17] MEDS: Mirtazapine 15 MG TAB PO SCH (11:42)
[2020-08-17] MEDS: Gabapentin 300 MG CAP PO SCH ×2 (11:42→20:40)
[2020-08-17] MEDS: Baclofen 10 MG TAB PO SCH ×3 (11:45→20:40)
[2020-08-17] MEDS: Ubidecarenone 50 MG CAP PO SCH (11:47)
[2020-08-17] MEDS: Atorvastatin Calcium 40 MG TAB PO SCH (11:47)
[2020-08-17] MEDS: Multivitamin W/ Minerals 1 TAB PO SCH (11:49)
[2020-08-17] MEDS ORDERED: Potassium Chloride 20 MEQ TAB ONE ×2 (11:58→12:00)
[2020-08-17] MEDS: Potassium Chloride 20 MEQ TAB PO SCH (12:01)
[2020-08-17] MEDS: Oseltamivir 75 MG CAP PO SCH ×2 (12:29→20:41)
[2020-08-17] MEDS: Heparin 5,000 UNITS/ML VIAL SC SCH ×3 (13:02→20:40)
[2020-08-17 13:39] LABS: Anion Gap 18 mmol/L (10-20); BUN (Urea Nitrogen) 41 mg/dL (9.8-20.1); Calc. Creatinine Clearance 33 mL/min (70-130); Carbon Dioxide 21 mmol/L (23-31); Chloride 104 mmol/L (98-107); Glucose 426 mg/dL (80-115); Potassium 4.8 mmol/L (3.5-5.1); Sodium 138 mmol/L (136-145)
[2020-08-17] MEDS ORDERED: Insulin Glargine 80 UNITS in Pre-Filled Syringe 1 EACH SC SCH (14:30)
[2020-08-17] MEDS ORDERED: Alogliptin 6.25 MG TAB PO SCH (15:00)
[2020-08-17 18:16] LABS: Actual Bicarbonate (HCO3a) 21.7 mEq/L (22-28); Base Excess (BEa) -5.6 mEq/L (-2.0 to +3.0); CO2 Tension 50.6 mmHg (35.0-45.0); Calcium, Ionized (arterial) 1.13 mmol/L (1.12-1.30); Carboxyhemoglobin (COHb) 0.3 gm% (0.0-3.0); Hemoglobin (Hb) 11.8 g/dL (12.0-16.0); O2 Tension (PaO2), arterial 80.1 mmHg (> 80.0); Potassium - ABG Lab 4.98 mmol/L (3.70-5.30)
[2020-08-17 18:19] LABS: Puncture Site LRA; pH, Arterial 7.25 (7.35-7.45)
[2020-08-17] MEDS ORDERED: Albuterol 200 PUFF (6.7GM INHALER) INH PRN (19:10)
[2020-08-17 20:12] LABS: Anion Gap 18 mmol/L (10-20); BUN (Urea Nitrogen) 39 mg/dL (9.8-20.1); Calc. Creatinine Clearance 36 mL/min (70-130); Carbon Dioxide 20 mmol/L (23-31); Chloride 106 mmol/L (98-107); Glucose 418 mg/dL (80-115); Sodium 139 mmol/L (136-145)
[2020-08-17 20:17] LABS: Troponin I 0.051 ng/mL (< 0.028)
[2020-08-17] MEDS: Insulin Regular 300 UNITS/3 ML VIAL SC PRN (20:42)
[2020-08-17] MEDS ORDERED: Non-Formulary Item 1 EACH (Insulin Glargine,Hum.Rec.Anlog [Toujeo Max Solostar] 300 UNIT/ SQ SCH (21:00)
[2020-08-17] MEDS ORDERED: INSULIN GLARGINE SC SCH (21:00)
[2020-08-17] MEDS ORDERED: Mometasone 200 MCG/Formoterol 5 MCG 120 PUFF INHALER INH SCH (21:00)
[2020-08-17] MEDS ORDERED: PRE FILLED SC SCH (21:00)
[2020-08-17 21:17] LABS: SARS-CoV-2 MS2 Positive; SARS-CoV-2 N Gene Positive; SARS-CoV-2 S Gene Positive; SARS-CoV-2 by NAA DETECTED (NotDetected); SARS-CoV-2 orf1ab Positive
[2020-08-17] MEDS ORDERED: Cefepime 1 GM in Sodium Chloride 0.9% 100 ML IVPB SCH (23:59)
[2020-08-18 04:10] LABS: #Lymphocytes 1.4 thou/uL (1.20-3.40); #Monocytes 0.5 thou/uL (0.11-0.59); #Neutrophils 11.4 thou/uL (1.40-6.50); %Basophils 0.1 % (0.0-1.0); %Eosinophils 0.3 % (0.0-10.0); %Lymphocytes 10.3 % (21.0-51.0); %Monocytes 4.1 % (0.0-10.0); %Neutrophils 85.2 % (42.0-75.0); Hemoglobin 10.7 g/dL (12.0-16.0); Mean Corpuscular HGB CONC 33.1 g/dL (32.0-36.0); Mean Corpuscular Hemoglobin 29.6 pg (27.0-31.0); Mean Corpuscular Volume 89.6 fL (78.0-98.0); Mean Platelet Volume 7.9 fL (7.4-10.4); Platelet Count 252 thou/uL (130-400); RBC Distribution Width 14.9 % (11.5-14.5); Red Blood Cell (RBC) Count 3.61 mill/uL (4.20-5.40); White Blood Cell (WBC) Count 13.4 thou/uL (4.8-10.8)
[2020-08-18 04:33] LABS: ALT (SGPT) 67 U/L (8-55); AST (SGOT) 128 U/L (5-34); Albumin 3.3 g/dL (3.4-4.8); Alkaline Phosphatase 79 U/L (40-110); Anion Gap 18 mmol/L (10-20); BUN (Urea Nitrogen) 41 mg/dL (9.8-20.1); Bilirubin, Total 0.2 mg/dL (0.2-1.2); Calc. Creatinine Clearance 42 mL/min (70-130); Calcium 8.3 mg/dL (7.8-10.44); Carbon Dioxide 22 mmol/L (23-31); Chloride 107 mmol/L (98-107); Globulin 2.6 g/dL (2.4-3.5); Glucose 308 mg/dL (80-115); Potassium 4.8 mmol/L (3.5-5.1); Protein, Total 5.9 g/dL (6.0-8.3); Sodium 142 mmol/L (136-145)
[2020-08-18] MEDS: Sodium Chloride 0.9% 1,000 ML IV SCH ×2 (05:56→17:24)
[2020-08-18] MEDS: Mometasone 200 MCG/Formoterol 5 MCG 120 PUFF INHALER INH SCH ×2 (06:00→19:00)
[2020-08-18] MEDS: Insulin Regular 300 UNITS/3 ML VIAL SC PRN ×2 (06:25→21:41)
[2020-08-18 06:51] LABS: Actual Bicarbonate (HCO3a) 23.5 mEq/L (22-28); Base Excess (BEa) -2.1 mEq/L (-2.0 to +3.0); CO2 Tension 43.9 mmHg (35.0-45.0); Calcium, Ionized (arterial) 1.17 mmol/L (1.12-1.30); Hemoglobin (Hb) 11.7 g/dL (12.0-16.0); Potassium - ABG Lab 4.83 mmol/L (3.70-5.30); pH, Arterial 7.35 (7.35-7.45)
[2020-08-18] MEDS ORDERED: Propofol 1,000 MG/100 ML VIAL IV ONE (07:17)
[2020-08-18] MEDS ORDERED: Ventilator Sedation Protocol 1 EACH FS ONE (07:22)
[2020-08-18 07:58] LABS: ALT (SGPT) 72 U/L (8-55); AST (SGOT) 145 U/L (5-34); Albumin 3.5 g/dL (3.4-4.8); Alkaline Phosphatase 88 U/L (40-110); Anion Gap 19 mmol/L (10-20); BUN (Urea Nitrogen) 40 mg/dL (9.8-20.1); Bilirubin, Total 0.2 mg/dL (0.2-1.2); Calc. Creatinine Clearance 42 mL/min (70-130); Calcium 8.7 mg/dL (7.8-10.44); Carbon Dioxide 19 mmol/L (23-31); Chloride 109 mmol/L (98-107); Globulin 3.1 g/dL (2.4-3.5); Glucose 314 mg/dL (80-115); Protein, Total 6.6 g/dL (6.0-8.3); Sodium 142 mmol/L (136-145)
[2020-08-18] MEDS ORDERED: Carvedilol 6.25 MG TAB PO SCH (08:00)
[2020-08-18] MEDS ORDERED: Dexamethasone Sod Phosphate 6 MG in Sodium Chloride 0.9% 50 ML IVPB SCH (09:00)
[2020-08-18] MEDS ORDERED: FLU VACC QS2020-21(65YR UP)/PF 240 MCG/0.7 ML SYRINGE IM ONE (09:00)
[2020-08-18] MEDS ORDERED: Fentanyl BOLUS 250 ML IVPB PRN ×2 (09:15→09:30)
[2020-08-18] MEDS ORDERED: DISCONTINUE PREVIOUS NARCOTIC PAIN MEDICATIONS AND BENZODIAZEPINES FS SCH ×2 (09:15→09:30)
[2020-08-18] MEDS ORDERED: Propofol BOLUS 1,000 MG/100 ML VIAL IV PRN ×2 (09:15→09:30)
[2020-08-18] MEDS ORDERED: Morphine 2 MG/ML VIAL SLOW IVP PRN ×2 (09:15→09:30)
[2020-08-18] MEDS ORDERED: Lorazepam 2 MG/ML VIAL SLOW IVP PRN (09:30)
[2020-08-18] MEDS ORDERED: Propofol 1,000 MG/100 ML VIAL IV PRN (09:30)
[2020-08-18] MEDS ORDERED: fentaNYL Citrate/PF 2,000 MCG in Sodium Chloride 0.9% 60 ML IV SCH (09:30)
[2020-08-18 10:05] LABS: O2 Tension (PaO2), arterial 48.5 mmHg (> 80.0)
[2020-08-18] MEDS: fentaNYL Citrate/PF 2,000 MCG in Sodium Chloride 0.9% 60 ML IV SCH ×2 (10:44→22:24)
[2020-08-18] MEDS: Propofol 1,000 MG/100 ML VIAL IV PRN ×3 (10:53→21:46)
[2020-08-18] MEDS: Potassium Chloride 20 MEQ TAB PO SCH (11:47)
[2020-08-18] MEDS: Amlodipine 10 MG TAB PO SCH (11:48)
[2020-08-18] MEDS: Baclofen 10 MG TAB PO SCH ×3 (11:49→21:06)
[2020-08-18] MEDS: Gabapentin 300 MG CAP PO SCH ×2 (11:50→21:08)
[2020-08-18] MEDS: Heparin 5,000 UNITS/ML VIAL SC SCH ×3 (11:51→21:08)
[2020-08-18] MEDS: hydrALAZINE 25 MG TAB PO SCH ×2 (11:51→17:23)
[2020-08-18] MEDS: Montelukast Sodium 10 mg Tablet PO SCH (11:52)
[2020-08-18] MEDS: Hydroxychloroquine Sulfate 200 MG TAB PO SCH ×2 (12:34→21:10)
[2020-08-18] MEDS: Cholecalciferol 1,000 UNITS (25 MCG) TAB PO SCH (12:34)
[2020-08-18] MEDS: Ubidecarenone 50 MG CAP PO SCH (12:34)
[2020-08-18] MEDS: Multivitamin W/ Minerals 1 TAB PO SCH (12:35)
[2020-08-18] MEDS: Mirtazapine 15 MG TAB PO SCH (12:35)
[2020-08-18] MEDS: Ferrous Sulfate 325 MG TAB PO SCH (12:35)
[2020-08-18] MEDS: Atorvastatin Calcium 40 MG TAB PO SCH (12:35)
[2020-08-18] MEDS: Alogliptin 6.25 MG TAB PO SCH (12:36)
[2020-08-18] MEDS: Cefepime 1 GM in Sodium Chloride 0.9% 100 ML IVPB SCH ×2 (12:37→21:06)
[2020-08-18] MEDS: methylPREDNISolone Sod Succ 40 MG VIAL IVP SCH ×3 (13:04→23:10)
[2020-08-18] MEDS: Oseltamivir 75 MG CAP PO SCH ×2 (13:04→21:11)
[2020-08-18] MEDS: Lactated Ringer's 1,000 ML IV SCH (13:06)
[2020-08-18] MEDS ORDERED: Insulin Glargine 60 UNITS in Pre-Filled Syringe 1 EACH SC SCH (14:30)
[2020-08-18] MEDS ORDERED: Insulin Glargine 120 UNITS in Pre-Filled Syringe 1 EACH SC SCH (14:30)
[2020-08-18 17:18] LABS: Actual Bicarbonate (HCO3a) 22.3 mEq/L (22-28); Base Excess (BEa) -4.5 mEq/L (-2.0 to +3.0); CO2 Tension 48.5 mmHg (35.0-45.0); Calcium, Ionized (arterial) 1.18 mmol/L (1.12-1.30); Carboxyhemoglobin (COHb) 0.3 gm% (0.0-3.0); Hemoglobin (Hb) 11.3 g/dL (12.0-16.0); Potassium - ABG Lab 4.72 mmol/L (3.70-5.30); pH, Arterial 7.28 (7.35-7.45)
[2020-08-18 17:21] LABS: O2 Tension (PaO2), arterial 39.4 mmHg (> 80.0)
[2020-08-18 17:22] LABS: ALV-art Gradient 612.975 mmHg (0-20); Puncture Site RRA
[2020-08-18 17:24] LABS: CO2 Tension 43.9 mmHg (35.0-45.0); pH, Arterial 7.35 (7.35-7.45)
[2020-08-18 17:25] LABS: Actual Bicarbonate (HCO3a) 23.5 mEq/L (22-28); Base Excess (BEa) -2.1 mEq/L (-2.0 to +3.0); O2 Tension (PaO2), arterial 48.5 mmHg (> 80.0)
[2020-08-18 17:26] LABS: Calcium, Ionized (arterial) 1.17 mmol/L (1.12-1.30); Hemoglobin (Hb) 11.7 g/dL (12.0-16.0); Potassium - ABG Lab 4.83 mmol/L (3.70-5.30)
[2020-08-18 17:27] LABS: ALV-art Gradient 609.625 mmHg (0-20); Puncture Site RRA
[2020-08-18] MEDS ORDERED: Famotidine/PF 20 mg/2ml Vial SLOW IVP SCH (21:00)
[2020-08-18 22:52] LABS: Bilirubin Negative (Negative); Blood, Urine Negative (Negative); Clarity Clear (Clear); Glucose, Urine (Dipstick) 100 mg/dL (Negative); Ketone, Urine Trace mg/dL (Negative); Leukocyte Negative Leu/uL (Negative); Nitrite Negative (Negative); Protein, Urine (Dipstick) 50 mg/dL (Neg-Trace); Specific Gravity, Urine 1.026 (1.002-1.036); Squamous Epithelial 0-3 HPF (0-3); Urobilinogen Normal mg/dL (Less than 2)
[2020-08-18 22:53] LABS: Bacteria/HPF 1+ HPF (None Seen)
[2020-08-18 23:10] LABS: Creatinine, Urine 243.63 mg/dL (47-110)
[2020-08-19 03:43] LABS: #Lymphocytes 1.1 thou/uL (1.20-3.40); #Monocytes 0.4 thou/uL (0.11-0.59); #Neutrophils 10.2 thou/uL (1.40-6.50); %Eosinophils 0.1 % (0.0-10.0); %Lymphocytes 9.5 % (21.0-51.0); %Monocytes 3.6 % (0.0-10.0); %Neutrophils 86.8 % (42.0-75.0); Hemoglobin 9.5 g/dL (12.0-16.0); Mean Corpuscular Volume 88.6 fL (78.0-98.0); Mean Platelet Volume 8.3 fL (7.4-10.4); Platelet Count 225 thou/uL (130-400); Red Blood Cell (RBC) Count 3.06 mill/uL (4.20-5.40); White Blood Cell (WBC) Count 11.8 thou/uL (4.8-10.8)
[2020-08-19] MEDS: Propofol 1,000 MG/100 ML VIAL IV PRN ×4 (03:56→23:24)
[2020-08-19] MEDS: Lactated Ringer's 1,000 ML IV SCH ×5 (03:56→23:24)
[2020-08-19 04:09] LABS: ALT (SGPT) 52 U/L (8-55); AST (SGOT) 80 U/L (5-34); Albumin 2.9 g/dL (3.4-4.8); Alkaline Phosphatase 69 U/L (40-110); Anion Gap 18 mmol/L (10-20); BUN (Urea Nitrogen) 46 mg/dL (9.8-20.1); Bilirubin, Total 0.3 mg/dL (0.2-1.2); Calc. Creatinine Clearance 47 mL/min (70-130); Calcium 8.1 mg/dL (7.8-10.44); Carbon Dioxide 18 mmol/L (23-31); Chloride 108 mmol/L (98-107); Globulin 2.5 g/dL (2.4-3.5); Glucose 406 mg/dL (80-115); Potassium 5.4 mmol/L (3.5-5.1); Protein, Total 5.4 g/dL (6.0-8.3); Sodium 139 mmol/L (136-145)
[2020-08-19] MEDS: Insulin Regular 300 UNITS/3 ML VIAL SC PRN ×4 (04:29→21:28)
[2020-08-19] MEDS ORDERED: Insulin Glargine 40 UNITS in Pre-Filled Syringe 1 EACH SC SCH (06:30)
[2020-08-19] MEDS: methylPREDNISolone Sod Succ 40 MG VIAL IVP SCH ×4 (06:43→23:24)
[2020-08-19 06:45] LABS: Base Excess (BEa) -3.3 mEq/L (-2.0 to +3.0); Calcium, Ionized (arterial) 1.14 mmol/L (1.12-1.30); Carboxyhemoglobin (COHb) 0.3 gm% (0.0-3.0); Hemoglobin (Hb) 9.1 g/dL (12.0-16.0); O2 Tension (PaO2), arterial 78.4 mmHg (> 80.0); Potassium - ABG Lab 4.46 mmol/L (3.70-5.30); pH, Arterial 7.49 (7.35-7.45)
[2020-08-19] MEDS: Potassium Chloride 20 MEQ TAB PO SCH (08:20)
[2020-08-19 08:21] LABS: ALV-art Gradient 567.325 mmHg (0-20); CO2 Tension 25.3 mmHg (35.0-45.0); Puncture Site LRA
[2020-08-19] MEDS ORDERED: Bacteriostatic Normal Saline 30 ML VIAL ONE (08:30)
[2020-08-19] MEDS: Mometasone 200 MCG/Formoterol 5 MCG 120 PUFF INHALER INH SCH ×2 (08:38→19:54)
[2020-08-19] MEDS: Cefepime 1 GM in Sodium Chloride 0.9% 100 ML IVPB SCH ×2 (08:41→20:59)
[2020-08-19] MEDS: Alogliptin 6.25 MG TAB PO SCH (08:41)
[2020-08-19] MEDS: Vecuronium 10 MG VIAL IV PRN ×3 (08:41→21:38)
[2020-08-19] MEDS: Ubidecarenone 50 MG CAP PO SCH (08:41)
[2020-08-19] MEDS: Baclofen 10 MG TAB PO SCH ×2 (08:41→14:05)
[2020-08-19] MEDS: Hydroxychloroquine Sulfate 200 MG TAB PO SCH ×2 (08:41→20:59)
[2020-08-19] MEDS: Cholecalciferol 1,000 UNITS (25 MCG) TAB PO SCH (08:41)
[2020-08-19] MEDS: Atorvastatin Calcium 40 MG TAB PO SCH (08:42)
[2020-08-19] MEDS: Oseltamivir 75 MG CAP PO SCH ×2 (08:42→20:59)
[2020-08-19] MEDS: Multivitamin W/ Minerals 1 TAB PO SCH (08:42)
[2020-08-19] MEDS: Montelukast Sodium 10 mg Tablet PO SCH (08:42)
[2020-08-19] MEDS: Ferrous Sulfate 325 MG TAB PO SCH (08:42)
[2020-08-19] MEDS: Mirtazapine 15 MG TAB PO SCH (08:42)
[2020-08-19] MEDS: Gabapentin 300 MG CAP PO SCH (08:42)
[2020-08-19] MEDS: Heparin 5,000 UNITS/ML VIAL SC SCH ×3 (08:43→20:59)
[2020-08-19] MEDS: fentaNYL Citrate/PF 2,000 MCG in Sodium Chloride 0.9% 60 ML IV SCH ×2 (09:48→19:44)
[2020-08-19] MEDS: Amlodipine 10 MG TAB PO SCH (10:00)
[2020-08-19] MEDS: Insulin Glargine 60 UNITS in Pre-Filled Syringe 1 EACH SC SCH ×2 (14:03→14:04)
[2020-08-19] MEDS ORDERED: Insulin Glargine 80 UNITS in Pre-Filled Syringe SC SCH (14:30)
[2020-08-19] MEDS: hydrALAZINE 25 MG TAB PO SCH (20:58)
[2020-08-19] MEDS: Famotidine/PF 20 mg/2ml Vial SLOW IVP SCH (20:58)
[2020-08-19] MEDS: Lorazepam 2 MG/ML VIAL SLOW IVP PRN (21:38)
[2020-08-20] MEDS: Propofol 1,000 MG/100 ML VIAL IV PRN ×5 (04:16→23:38)
[2020-08-20 05:19] LABS: #Monocytes 0.5 thou/uL (0.11-0.59); #Neutrophils 12.5 thou/uL (1.40-6.50); %Basophils 0.3 % (0.0-1.0); %Eosinophils 0.2 % (0.0-10.0); %Lymphocytes 7.4 % (21.0-51.0); %Monocytes 3.4 % (0.0-10.0); %Neutrophils 88.7 % (42.0-75.0); Hemoglobin 8.9 g/dL (12.0-16.0); Mean Corpuscular HGB CONC 34.3 g/dL (32.0-36.0); Mean Corpuscular Volume 87.5 fL (78.0-98.0); Mean Platelet Volume 8.7 fL (7.4-10.4); Platelet Count 277 thou/uL (130-400); RBC Distribution Width 14.8 % (11.5-14.5); Red Blood Cell (RBC) Count 2.96 mill/uL (4.20-5.40); White Blood Cell (WBC) Count 14.1 thou/uL (4.8-10.8)
[2020-08-20 05:46] LABS: ALT (SGPT) 50 U/L (8-55); AST (SGOT) 71 U/L (5-34); Albumin 2.7 g/dL (3.4-4.8); Alkaline Phosphatase 84 U/L (40-110); Anion Gap 16 mmol/L (10-20); BUN (Urea Nitrogen) 48 mg/dL (9.8-20.1); Bilirubin, Total 0.3 mg/dL (0.2-1.2); Calc. Creatinine Clearance 55 mL/min (70-130); Calcium 8.2 mg/dL (7.8-10.44); Carbon Dioxide 22 mmol/L (23-31); Chloride 108 mmol/L (98-107); Globulin 2.6 g/dL (2.4-3.5); Glucose 314 mg/dL (80-115); Potassium 4.5 mmol/L (3.5-5.1); Protein, Total 5.3 g/dL (6.0-8.3); Sodium 141 mmol/L (136-145)
[2020-08-20] MEDS: methylPREDNISolone Sod Succ 40 MG VIAL IVP SCH ×4 (05:57→23:38)
[2020-08-20] MEDS: Lactated Ringer's 1,000 ML IV SCH ×2 (05:57→12:10)
[2020-08-20] MEDS: fentaNYL Citrate/PF 2,000 MCG in Sodium Chloride 0.9% 60 ML IV SCH ×2 (05:58→17:05)
[2020-08-20] MEDS: Insulin Regular 300 UNITS/3 ML VIAL SC PRN ×4 (06:36→22:11)
[2020-08-20] MEDS: Potassium Chloride 20 MEQ TAB PO SCH (07:57)
[2020-08-20] MEDS: Mometasone 200 MCG/Formoterol 5 MCG 120 PUFF INHALER INH SCH ×2 (08:06→19:43)
[2020-08-20] MEDS: Ubidecarenone 50 MG CAP PO SCH (09:21)
[2020-08-20] MEDS: Alogliptin 6.25 MG TAB PO SCH (09:21)
[2020-08-20] MEDS: hydrALAZINE 25 MG TAB PO SCH ×3 (09:21→20:16)
[2020-08-20] MEDS: Atorvastatin Calcium 40 MG TAB PO SCH (09:21)
[2020-08-20] MEDS: Ferrous Sulfate 325 MG TAB PO SCH (09:22)
[2020-08-20] MEDS: Cholecalciferol 1,000 UNITS (25 MCG) TAB PO SCH (09:22)
[2020-08-20] MEDS: Amlodipine 10 MG TAB PO SCH (09:22)
[2020-08-20] MEDS: Oseltamivir 75 MG CAP PO SCH ×2 (09:23→20:16)
[2020-08-20] MEDS: Hydroxychloroquine Sulfate 200 MG TAB PO SCH ×2 (09:23→20:17)
[2020-08-20] MEDS: Heparin 5,000 UNITS/ML VIAL SC SCH ×3 (09:23→20:16)
[2020-08-20] MEDS: Multivitamin W/ Minerals 1 TAB PO SCH (09:23)
[2020-08-20] MEDS: Montelukast Sodium 10 mg Tablet PO SCH (09:23)
[2020-08-20] MEDS: Cefepime 1 GM in Sodium Chloride 0.9% 100 ML IVPB SCH ×2 (09:25→20:17)
[2020-08-20] MEDS: Insulin Glargine 60 UNITS in Pre-Filled Syringe 1 EACH SC SCH ×2 (14:47→14:49)
[2020-08-20] MEDS: Lorazepam 2 MG/ML VIAL SLOW IVP PRN ×2 (14:55→21:09)
[2020-08-20] MEDS ORDERED: Sterile Water 10 ML ONE (15:16)
[2020-08-20] MEDS: Vecuronium 10 MG VIAL IV PRN ×2 (15:18→20:17)
[2020-08-20] MEDS: Famotidine/PF 20 mg/2ml Vial SLOW IVP SCH (20:16)
[2020-08-21] MEDS: Lactated Ringer's 1,000 ML IV SCH ×2 (00:14→04:22)
[2020-08-21] MEDS: fentaNYL Citrate/PF 2,000 MCG in Sodium Chloride 0.9% 60 ML IV SCH ×3 (02:02→22:45)
[2020-08-21 03:38] LABS: ALT (SGPT) 47 U/L (8-55); AST (SGOT) 56 U/L (5-34); Albumin 2.6 g/dL (3.4-4.8); Alkaline Phosphatase 83 U/L (40-110); Anion Gap 17 mmol/L (10-20); BUN (Urea Nitrogen) 52 mg/dL (9.8-20.1); Bilirubin, Total 0.2 mg/dL (0.2-1.2); Calc. Creatinine Clearance 57 mL/min (70-130); Carbon Dioxide 21 mmol/L (23-31); Chloride 108 mmol/L (98-107); Globulin 2.7 g/dL (2.4-3.5); Glucose 257 mg/dL (80-115); Potassium 4.8 mmol/L (3.5-5.1); Protein, Total 5.3 g/dL (6.0-8.3); Sodium 141 mmol/L (136-145)
[2020-08-21 04:06] LABS: Band 11 % (5-11); Hypochromia SLIGHT = 6-15 cells (100X) (0-5/hpf); Lymphocytes 7 % (21-51); MDiff Complete? YES; Mean Corpuscular HGB CONC 34.7 g/dL (32.0-36.0); Mean Corpuscular Hemoglobin 30.3 pg (27.0-31.0); Mean Corpuscular Volume 87.5 fL (78.0-98.0); Mean Platelet Volume 8.3 fL (7.4-10.4); Monocytes 8 % (0-10); Neutrophil 74 % (42-75); Platelet Count 316 thou/uL (130-400); Platelet Morphology Comment Appears Adequate; RBC Distribution Width 14.9 % (11.5-14.5); Red Blood Cell (RBC) Count 2.95 mill/uL (4.20-5.40); White Blood Cell (WBC) Count 18.9 thou/uL (4.8-10.8)
[2020-08-21] MEDS: methylPREDNISolone Sod Succ 40 MG VIAL IVP SCH ×3 (05:09→18:27)
[2020-08-21] MEDS: Propofol 1,000 MG/100 ML VIAL IV PRN ×3 (05:09→19:44)
[2020-08-21] MEDS: Vecuronium 10 MG VIAL IV PRN ×2 (07:08→14:11)
[2020-08-21] MEDS: Lorazepam 2 MG/ML VIAL SLOW IVP PRN ×3 (07:18→22:36)
[2020-08-21] MEDS: Mometasone 200 MCG/Formoterol 5 MCG 120 PUFF INHALER INH SCH ×2 (07:48→20:08)
[2020-08-21] MEDS: Cefepime 1 GM in Sodium Chloride 0.9% 100 ML IVPB SCH ×2 (09:28→20:44)
[2020-08-21] MEDS: Heparin 5,000 UNITS/ML VIAL SC SCH (09:29)
[2020-08-21] MEDS: Alogliptin 6.25 MG TAB PO SCH (09:31)
[2020-08-21] MEDS: Atorvastatin Calcium 40 MG TAB PO SCH (09:31)
[2020-08-21] MEDS: Multivitamin W/ Minerals 1 TAB PO SCH (09:31)
[2020-08-21] MEDS: Cholecalciferol 1,000 UNITS (25 MCG) TAB PO SCH (09:31)
[2020-08-21] MEDS: Amlodipine 10 MG TAB PO SCH (09:31)
[2020-08-21] MEDS: Hydroxychloroquine Sulfate 200 MG TAB PO SCH ×2 (09:31→20:44)
[2020-08-21] MEDS: Ubidecarenone 50 MG CAP PO SCH (09:31)
[2020-08-21] MEDS: Ferrous Sulfate 325 MG TAB PO SCH (09:32)
[2020-08-21] MEDS: Oseltamivir 75 MG CAP PO SCH (09:32)
[2020-08-21] MEDS: hydrALAZINE 25 MG TAB PO SCH ×3 (09:32→20:44)
[2020-08-21] MEDS: Montelukast Sodium 10 mg Tablet PO SCH (09:32)
[2020-08-21] MEDS ORDERED: Lactated Ringer's 1,000 ML IV SCH ×2 (13:15→13:26)
[2020-08-21] MEDS: Insulin Regular 300 UNITS/3 ML VIAL SC PRN ×3 (13:22→22:45)
[2020-08-21] MEDS ORDERED: Insulin Glargine 15 UNITS in Pre-Filled Syringe 1 EACH SC SCH (14:30)
[2020-08-21] MEDS: Insulin Glargine 60 UNITS in Pre-Filled Syringe 1 EACH SC SCH ×2 (16:27→16:28)
[2020-08-21] MEDS ORDERED: Furosemide 100 MG/10 ML VIAL SLOW IVP SCH (17:30)
[2020-08-21] MEDS: Famotidine/PF 20 mg/2ml Vial SLOW IVP SCH (20:44)
[2020-08-22] MEDS: methylPREDNISolone Sod Succ 40 MG VIAL IVP SCH ×4 (00:24→18:10)
[2020-08-22] MEDS: Propofol 1,000 MG/100 ML VIAL IV PRN ×3 (00:24→16:29)
[2020-08-22 05:11] LABS: ALT (SGPT) 52 U/L (8-55); AST (SGOT) 48 U/L (5-34); Alkaline Phosphatase 154 U/L (40-110); Anion Gap 18 mmol/L (10-20); BUN (Urea Nitrogen) 63 mg/dL (9.8-20.1); Bilirubin, Total 0.3 mg/dL (0.2-1.2); Calc. Creatinine Clearance 40 mL/min (70-130); Calcium 8.5 mg/dL (7.8-10.44); Carbon Dioxide 22 mmol/L (23-31); Chloride 107 mmol/L (98-107); Globulin 3.4 g/dL (2.4-3.5); Glucose 368 mg/dL (80-115); Potassium 6.1 mmol/L (3.5-5.1); Protein, Total 6.4 g/dL (6.0-8.3); Sodium 141 mmol/L (136-145)
[2020-08-22 05:17] LABS: Band 1 % (5-11); Hemoglobin 9.9 g/dL (12.0-16.0); Lymphocytes 3 % (21-51); MDiff Complete? YES; Mean Corpuscular HGB CONC 31.3 g/dL (32.0-36.0); Mean Corpuscular Hemoglobin 28.4 pg (27.0-31.0); Mean Corpuscular Volume 90.6 fL (78.0-98.0); Metamyelocyte 3 % (0-0); Monocytes 3 % (0-10); Neutrophil 90 % (42-75); Nucleated RBC 4 % (0); Platelet Count 470 thou/uL (130-400); Platelet Morphology Comment Appears Increased; RBC Distribution Width 15.7 % (11.5-14.5); RBC Morphology Normal; White Blood Cell (WBC) Count 37.1 thou/uL (4.8-10.8)
[2020-08-22] MEDS: Insulin Regular 300 UNITS/3 ML VIAL SC PRN ×4 (05:41→20:31)
[2020-08-22] MEDS: Mometasone 200 MCG/Formoterol 5 MCG 120 PUFF INHALER INH SCH ×2 (07:54→21:03)
[2020-08-22] MEDS ORDERED: Enoxaparin Sodium 40 MG/0.4 ML SYRINGE SC SCH (09:00)
[2020-08-22] MEDS ORDERED: Enoxaparin Sodium 60 MG/0.6 ML SYRINGE SC SCH (09:00)
[2020-08-22] MEDS: fentaNYL Citrate/PF 2,000 MCG in Sodium Chloride 0.9% 60 ML IV SCH (10:11)
[2020-08-22] MEDS ORDERED: Furosemide 40 MG/4 ML VIAL IVP SCH (11:10)
[2020-08-22] MEDS: Alogliptin 6.25 MG TAB PO SCH (14:13)
[2020-08-22] MEDS: Cholecalciferol 1,000 UNITS (25 MCG) TAB PO SCH (14:13)
[2020-08-22] MEDS: Cefepime 1 GM in Sodium Chloride 0.9% 100 ML IVPB SCH ×2 (14:13→20:29)
[2020-08-22] MEDS: Atorvastatin Calcium 40 MG TAB PO SCH (14:14)
[2020-08-22] MEDS: Ubidecarenone 50 MG CAP PO SCH (14:14)
[2020-08-22] MEDS: Montelukast Sodium 10 mg Tablet PO SCH (14:15)
[2020-08-22] MEDS: Multivitamin W/ Minerals 1 TAB PO SCH (14:15)
[2020-08-22] MEDS: Ferrous Sulfate 325 MG TAB PO SCH (14:15)
[2020-08-22] MEDS: Amlodipine 10 MG TAB PO SCH (14:15)
[2020-08-22] MEDS: Hydroxychloroquine Sulfate 200 MG TAB PO SCH ×2 (14:16→20:30)
[2020-08-22] MEDS: Insulin Glargine 60 UNITS in Pre-Filled Syringe 1 EACH SC SCH (14:17)
[2020-08-22] MEDS: hydrALAZINE 25 MG TAB PO SCH ×3 (14:23→20:29)
[2020-08-22] MEDS ORDERED: Insulin Glargine 75 UNITS in Pre-Filled Syringe 1 EACH SC SCH (14:30)
[2020-08-22 20:04] VITALS: TEMP 97.3
[2020-08-22] MEDS: Famotidine/PF 20 mg/2ml Vial SLOW IVP SCH (20:29)
[2020-08-22 21:12] VITALS: BP 130/55
[2020-08-22] MEDS ORDERED: DC Sedation Protocol FS ONE (22:49)
== END 2020-08-22 22:50 | disposition expired | DRG 870 ==
LOC: ERS 22:44 → ERHOLD 23:57 → T4-A 08-17 16:14 → IMCU/EMU 08-17 22:46
PROVIDERS: ADMIT Family Medicine; ATTEND Family Medicine
PROC: 8E0ZXY6 Isolation (ICD-10-PCS; 2020-08-16)
PROC: 5A09457 Assistance with Respiratory Ventilation, 24-96 Consecutive Hours, Continuous Positive Airway Pressure (ICD-10-PCS; 2020-08-17)
PROC: 3E033XZ Introduction of Vasopressor into Peripheral Vein, Percutaneous Approach (ICD-10-PCS; 2020-08-17)
PROC: 5A1955Z Respiratory Ventilation, Greater than 96 Consecutive Hours (ICD-10-PCS; principal; 2020-08-18)
PROC: 0BH17EZ Insertion of Endotracheal Airway into Trachea, Via Natural or Artificial Opening (ICD-10-PCS; 2020-08-18)
PROC: 02HV33Z Insertion of Infusion Device into Superior Vena Cava, Percutaneous Approach (ICD-10-PCS; 2020-08-19)
PROC: B548ZZA Ultrasonography of Superior Vena Cava, Guidance (ICD-10-PCS; 2020-08-19)
DX: A41.89 Other specified sepsis (principal); U07.1 COVID-19; J12.82 Pneumonia due to coronavirus disease 2019; J96.21 Acute and chronic respiratory failure with hypoxia; J44.0 Chronic obstructive pulmonary disease with (acute) lower respiratory infection; N17.9 Acute kidney failure, unspecified; E27.49 Other adrenocortical insufficiency; Z66 Do not resuscitate; E78.5 Hyperlipidemia, unspecified; E78.00 Pure hypercholesterolemia, unspecified; G89.29 Other chronic pain; M54.9 Dorsalgia, unspecified; G47.33 Obstructive sleep apnea (adult) (pediatric); M06.9 Rheumatoid arthritis, unspecified; N18.30 Chronic kidney disease, stage 3 unspecified; E11.22 Type 2 diabetes mellitus with diabetic chronic kidney disease; I12.9 Hypertensive chronic kidney disease with stage 1 through stage 4 chronic kidney disease, or unspecified chronic kidney disease; F41.9 Anxiety disorder, unspecified; F32.9 Major depressive disorder, single episode, unspecified; E66.01 Morbid (severe) obesity due to excess calories; D63.1 Anemia in chronic kidney disease; J10.1 Influenza due to other identified influenza virus with other respiratory manifestations; R65.20 Severe sepsis without septic shock; E11.65 Type 2 diabetes mellitus with hyperglycemia; Z90.49 Acquired absence of other specified parts of digestive tract; Z99.81 Dependence on supplemental oxygen; Z79.899 Other long term (current) drug therapy; Z79.52 Long term (current) use of systemic steroids; Z79.4 Long term (current) use of insulin; Z68.39 Body mass index [BMI] 39.0-39.9, adult; Z87.891 Personal history of nicotine dependence; Z95.0 Presence of cardiac pacemaker; Z78.1 Physical restraint status; Z82.49 Family history of ischemic heart disease and other diseases of the circulatory system
CPT/HCPCS: 36415; 36416; 36600; 71045; 80053; 81001; 81003; 81015; 82570; 82728; 82805; 83605; 83615; 84145; 84484; 84540; 85025; 85379; 85610; 85730; 86140; 86850; 86900; 86901; 87086; 87635; 93005; 94002; 94003; 94640; 94660; 94664; 94760; 96365; 96367; 96375; J0692; J1100; J1644; J1650; J1815; J1940; J2060; J2704; J2920; J3010; J3370; J3475; J3490; J7620; S0028; U0003